=== PATIENT | female | born 1970 | race Caucasian/White ===

== ENCOUNTER 2017-09-21 07:27 | Outpatient (RCR) | payer OTHER, SELFPAY ==
--- NOTE | 2017-09-21 08:45 | HP.PTEVAL_ITS ---
Patient's Visit Information JACKY CATES is a 47 year old F referred to Physical Therapy by Kendell ROSSI with a diagnosis of LUMBAR RADICULOPATHY. Date of Evaluation: 09/21/17 Physical Therapist: Lewis Hammer, PT, - Visit Plan Frequency: 3x /Week Duration: 4 Weeks Plan: modalities, DLS,postural ex's - Subjective Subjective: This 47 y/o female presents to physical therapy with lumbar radiculopathy left leg. Patient has had pain since OCT injuried by helping mom out of car bent over position. Patient has had 2 prior lumbar fusion with plates /screws then 2nd cage 2003 from [facility]. Location of left greater to right with parathesia -tingling to great toe left,intially lateral thigh. Symptoms worse with sitting.standing,lifting,bending,walking. Symptoms better with MEDS, Coughing/sneezing positive. Bowel/bladder -.Pain affects sleeping.Pain affects job demnads and housework tasks.Had PT in past ,epidural injection. VOCATION: [employer]. SOCIAL: - Pain Left Back Pain Intensity (Out of 10): 9 Pain Intensity Range: 10 Left Lower Extremity Pain Intensity (Out of 10): 9 Pain Intensity Range: 10 - Objective POSTURE: mild foward posture ,reduce lordosis. GAIT: mild foward posture anatalgic gait left side with decrease stance time. NUERO: c/o parathesia/ tingling left leg light touch inact,reflexes 2/3 L3-4,L4-5,L5-S1. SYMMRITIES : align. MMT: quads/hams 4-/5 L,R 4/5,Hip flexion 4-/5,ankle 4/5,great toe extensors 4-/5. LUMBAR ROM: flexion mod loss pain,extension mod loss pain, side glides mod limited. FLEXABILITY: mod tight - Special Tests L/S Slump test left side: Positive L/S Slump test right side: Negative L/S Left Straight Leg Raise: Positive L/S Right Straight Leg Raise: Negative Lumbar Standing: Flexion - Mechanical Response: No effect Lumbar Standing: Flexion - Symptoms During Testing: Increases Lumbar Standing: Flexion - Symptoms After Testing: Worse Lumbar Standing: Extension - Mechanical Response: No effect Lumbar Standing: Extension - Symptoms During Testing: Increases Lumbar Standing: Extension - Symptoms After Testing: Worse - Goals Goal 1:: Independant with HEP Goal Time Frame: 4-6 Weeks Goal 2:: Independant with posture/body mechanics for ADL'S Goal Time Frame: 4-6 Weeks Goal 3:: Patient decrease lumbar pain by 40 % or greater to improve function with walking standing Goal Time Frame: 4-6 Weeks Goal 4:: Patient improve lumbar ROM min/mod loss to improve function Goal Time Frame: 4-6 Weeks Goal 5:: Patient improve ADL'S and housework with min limitations with less pain Goal Time Frame: 4-6 Weeks - Rehabilitation Potential Physical Therapy Diagnosis: This 47 y/o female presents to physical therapy with lumbar radiculopathy with leg pain. with h/o lumbar fusion with cage 2004 with pain weakness,loss ROM causes deficits with walking and standing Rehabilitation Potential: Good - Anticipated Interventions Patient/Client Instruction: Educate patient on: Condition, Plan of Care For the Purpose of:: To decrease pain, To increase ROM, To improve muscle performance and motor function, To improve ability to perform ADL's, To increase tolerance to activity/condition/position, To improve performance and independence with ADL's, To improve ability of physical actions for home/ community/work/leisure, To improve health of tissue, To decrease soft tissue restriction, To increase flexibility/ROM, To improve ability to perform tasks related to life management Therapeutic Exercise to Include: Strength training, Body mechanics, Postural training, Flexibilty training, Dynamic Lumbar Stabilization For the Purpose of:: To decrease pain, To increase ROM, To improve muscle performance and motor function, To improve ability to perform ADL's, To increase tolerance to activity/condition/position, To improve ability of physical actions for home/community/work/leisure, To improve health of tissue, To decrease soft tissue restriction, To increase flexibility/ROM, To improve ability to perform tasks related to life management IF ES: Yes Cryotherapy (ice pack, ice massage): Yes Thermo therapy (hot pack): Yes Ultrasound (thermal/non thermal): Yes For the Purpose of:: To decrease pain, To increase ROM, To improve nutrient delivery to tissue, To increase oxygenation perfusion, To improve health of tissue, To decrease soft tissue restriction Thank you for the opportunity to evaluate your patient. For Medicare and Medicare HMO plans, please review the plan of care and approve it. It will need to be FAXED BACK to us at [phone] for Medicare purposes. Please let me know if there are questions or concerns regarding this plan of care. Physician Signature: Date:
--- NOTE | 2017-11-17 11:42 | HP.PTDCNRP_ITS ---
HP - Discharge Summary (1) - Patient Information JACKY CATES was seen in my office for initial evaluation on 09/21/17. The following Plan of Care was established for this patient: Initial Frequency: 3x /Week Initial Duration: 4 Weeks - Anticipated Interventions Patient/Client Instruction: Educate patient on: Condition, Plan of Care For the Purpose of:: To decrease pain, To increase ROM, To improve muscle performance and motor function, To improve ability to perform ADL's, To increase tolerance to activity/condition/position, To improve performance and independence with ADL's, To improve ability of physical actions for home/ community/work/leisure, To improve health of tissue, To decrease soft tissue restriction, To increase flexibility/ROM, To improve ability to perform tasks related to life management Therapeutic Exercise to Include: Strength training, Body mechanics, Postural training, Flexibilty training, Dynamic Lumbar Stabilization For the Purpose of:: To decrease pain, To increase ROM, To improve muscle performance and motor function, To improve ability to perform ADL's, To increase tolerance to activity/condition/position, To improve ability of physical actions for home/community/work/leisure, To improve health of tissue, To decrease soft tissue restriction, To increase flexibility/ROM, To improve ability to perform tasks related to life management IF ES: Yes Cryotherapy (ice pack, ice massage): Yes Thermo therapy (hot pack): Yes Ultrasound (thermal/non thermal): Yes For the Purpose of:: To decrease pain, To increase ROM, To improve nutrient delivery to tissue, To increase oxygenation perfusion, To improve health of tissue, To decrease soft tissue restriction This patient was last seen in our office 09/21/17. Pertinent comments regarding their Physical therapy will appear below: Patient seen for PT for lumbar radiculopathy for Intial PT eval. At this point I will be discontinuing this patient from physical therapy. I would be happy to see this patient again in the future if found appropriate by the physician. Thank you! Lewis Hammer, PT,
== END 2017-09-21 19:00 | disposition home or self-care (01) ==
LOC: PT 07:27
PROVIDERS: Family Provider Family Medicine; PCP Family Medicine; Visit Provider Family Medicine
DX: M54.16 Radiculopathy, lumbar region (principal)
CPT/HCPCS: 97014; 97162; G0283

== ENCOUNTER → 2018-05-09 09:50 | Outpatient (CLI) | payer OTHER, SELFPAY ==
--- NOTE | 2018-05-09 10:19 | RAD_ITS ---
STUDY: X-RAY - RIGHT SHOULDER REASON FOR EXAM: Female, 48 years old. Pain TECHNIQUE: 3 view(s) of the shoulder. COMPARISON: None. FINDINGS: The humeral head appears to be low-lying within the joint space.. Normal acromioclavicular joint. Normal acromion. Normal humeral head and visualized proximal humerus. The soft tissue structures are unremarkable. Normal visualized pulmonary apex. RAD/Shoulder min 2 Views IMPRESSION: Mildly inferiorly subluxed humeral head without evidence for associated fracture. MRI would be helpful to assess the shoulder capsule, tendons and ligaments if clinically indicated Electronically Signed: Orville Zapata MD at 21:26 EDT , Service support ,
[2018-05-09 12:44] LABS: Absolute Lymphocyte Count 2.03 X10^3/ul (0.83-4.51); Absolute Neutrophil Count 4.5 X10^3/uL (2.0-7.7); Basophil# 0.02 X10^3/uL; Basophil% 0.3 % (0-1); Eosinophil# 0.16 X10^3/uL; Eosinophils% 2.2 % (0-5); Hematocrit 39.4 % (37-47); Hemoglobin 13.4 g/dl (12.0-15.0); Lymphocyte # 2.03 X10^3/ul (4.0); Lymphocyte % 28.3 % (19-41); Mean Corpuscular Hgb 30.9 pg (27.0-32.0); Mean Platelet Vol. 10.5 fl (6.2-12.0); Monocyte# 0.47 X10^3/uL; Monocyte% 6.6 % (0-10); Neutrophil # 4.48 X10^3/uL (2.7-7.7); Neutrophil % 62.5 % (47-70); Platelet Count 239 K/mm3 (150-450); RBC Distribution Width CV 13.6 % (11.6-14.6); RBC Distribution Width SD 44.6 fl (35.1-43.9); Red Blood Count 4.33 M/mm3 (4.2-5.4); White Blood Count 7.2 K/mm3 (4.4-11.0)
[2018-05-09 12:58] LABS: POSITIVE COUNT NO; POSITIVE DIFFERENTIAL NO; POSITIVE MORPHOLOGY NO
[2018-05-09 13:22] LABS: ALB/GLOB Ratio 0.9 RATIO (0.9-2.4); AST(SGOT) 26 U/L (15-37); Alanine Aminotransfer ALT/SGPT 48 U/L (13-56); Albumin, Serum 3.5 g/dL (3.2-5.0); Alkaline Phosphatase 87 U/L (45-117); Anion Gap 9 (5-15); BUN 13 mg/dL (7-18); BUN/Creat Ratio 15.4 RATIO (10-20); Calcium,Total 8.9 mg/dL (8.5-10.1); Chloride 104 mmol/L (98-107); Cholesterol 322 mg/dL (200); Creatinine, Serum 0.84 mg/dL (0.55-1.02); EST Glomerular Filtration Rate 76 mL/min (>60); Est Glom Filt Rate - Afr Amer 92 mL/min (>60); Globulin 3.9 g/dL (2.2-4.2); Glucose 109 mg/dL (74-106); High Density Lipoprotein 45 mg/dL; Protein, Total 7.4 g/dL (6.4-8.2); Sodium Level 138 mmol/L (136-145); Triglycerides 790 mg/dL
[2018-05-12 08:23] LABS: Vitamin D 1,25-Dihydroxy 67.5 pg/mL (19.9-79.3)
== END ==
PROVIDERS: Family Provider Family Medicine; PCP Family Medicine; Visit Provider Nurse Practitioner Family
DX: Z00.00 Encounter for general adult medical examination without abnormal findings (principal); E03.9 Hypothyroidism, unspecified; E55.9 Vitamin D deficiency, unspecified; S49.91XA Unspecified injury of right shoulder and upper arm, initial encounter
CPT/HCPCS: 36415; 73030; 80053; 80061; 82652; 84443; 85025

== ENCOUNTER → 2018-05-21 08:36 | Outpatient (CLI) | payer OTHER, SELFPAY ==
--- NOTE | 2018-05-21 08:45 | MRI_ITS ---
STUDY: MRI RIGHT SHOULDER REASON FOR EXAM: Right shoulder pain with limited range of motion, fall 7 months ago. TECHNIQUE: Standardized fat and water weighted pulse sequences were obtained in all 3 orthogonal planes. COMPARISON: Radiographs 05/09/2018. FINDINGS: There is mild supraspinatus tendinosis (T2 coronal images 10-13) without discrete tendon tear. Normal infraspinatus tendon. There is mild subscapularis tendinosis (proton density axial image 13) without discrete tendon tear. Normal teres minor tendon. Normal supraspinatus muscle. Normal infraspinatus muscle. Normal subscapularis muscle. Normal teres minor muscle. Normal glenohumeral articulation. There is a well-defined chondroid series tumor in the proximal humeral diaphysis (T2 coronal images 6, 7) measuring 1.8 cm in length without endosteal scalloping or bone edema and therefore most suggestive of an enchondroma. Normal biceps labral complex. There is mild tendinosis of the intracapsular long biceps tendon (T2 sagittal images 8, 9). Normal labrum. Normal capsulo- ligamentous complex. There is mild acromioclavicular arthrosis (T2 sagittal image 9) without undersurface osteophytes. There is a Type II morphology (curved), with a neutral orientation. There is no subacromial-subdeltoid bursal fluid. Normal visualized coracohumeral and coracoacromial ligaments. Normal deltoid muscle. Normal trapezius muscle. MRI/Upper Ext Joint Only(Routine) IMPRESSION: Mild supraspinatus and subscapularis tendinosis without demonstrated rotator cuff tear. Mild tendinosis of the long biceps tendon. Mild acromioclavicular arthrosis. 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 Electronically Signed: Jerome Tidwell MD at 9:26 EDT Tel , Service support ,
== END ==
PROVIDERS: Family Provider Family Medicine; PCP Family Medicine; Visit Provider Nurse Practitioner Family
DX: S49.91XA Unspecified injury of right shoulder and upper arm, initial encounter (principal)
CPT/HCPCS: 73221

== ENCOUNTER → 2018-06-14 08:18 | Outpatient (CLI) | payer OTHER, SELFPAY ==
--- NOTE | 2018-06-14 08:20 | BI_ITS ---
MAMMOGRAPHY - BILATERAL SCREENING REASON FOR EXAM: Female, 48 years old. Routine annual screening examination. PERTINENT HISTORY: Non-contributory. TECHNIQUE: Digital bilateral breast gracie (3D mammographic acquisition) in the CC and MLO projections. 2-D mediolateral oblique (MLO) and craniocaudad (CC) views of both breasts were obtained. CAD: Full Field Digital Mammography with Computer Added Detection was performed. COMPARISON: Comparison is made with prior examination dated January 14, 2012. FINDINGS: Breast Composition: There are scattered areas of fibroglandular density. There are no dominant masses or suspicious calcifications. No other significant abnormalities are identified. There has been no significant change since the prior study. BI/SCREENING MAMM (CAD), BILAT IMPRESSION: Stable bilateral screening mammogram. Yearly follow-up mammogram recommended. (A) ASSESSMENT CATEGORY: BIRADS Category 1: Negative. A letter regarding these results will be sent to the patient by the facility within 30 days. Approximately 10% of breast cancers are not detected by mammography. A normal mammogram should not delay biopsy of a clinically suspicious abnormality. [id number] Electronically Signed: Chet Franklin MD at 11:21 EDT Tel [phone], Service support ,
== END ==
PROVIDERS: Family Provider Family Medicine; PCP Family Medicine; Visit Provider Nurse Practitioner Family
DX: Z12.31 Encounter for screening mammogram for malignant neoplasm of breast (principal)
CPT/HCPCS: 77063; 77067

== ENCOUNTER → 2019-07-08 | Outpatient (CLI) | payer OTHER, SELFPAY ==
[2016-06-29 11:10] VITALS: BMI 37.1
[2019-07-08 09:07] LABS: Absolute Lymphocyte Count 2.34 X10^3/uL (0.83-4.51); Absolute Neutrophil Count 3.1 X10^3/uL (2.0-7.7); Basophil# 0.03 X10^3/uL; Basophil% 0.5 % (0-1); Eosinophil# 0.12 X10^3/uL; Hematocrit 39.5 % (37-47); Hemoglobin 13.3 g/dL (12.0-15.0); Lymphocyte # 2.34 X10^3/ul (4.0); Lymphocyte % 38.5 % (19-41); Mean Corp Hgb Conc 33.7 g/dL (32-36); Mean Corpuscular Hgb 30.9 pg (27.0-32.0); Mean Corpuscular Volume 91.6 fL (81-99); Mean Platelet Vol. 10.2 fl (6.2-12.0); Monocyte# 0.45 X10^3/uL; Monocyte% 7.4 % (0-10); NRBC Flagged by Analyzer 0 % (0-5); Neutrophil # 3.12 X10^3/uL (2.7-7.7); Neutrophil % 51.3 % (47-70); Platelet Count 210 K/mm3 (150-450); RBC Distribution Width CV 13.1 % (11.6-14.6); RBC Distribution Width SD 42.9 fl (35.1-43.9); Red Blood Count 4.31 M/mm3 (4.2-5.4); White Blood Count 6.1 K/mm3 (4.4-11.0)
[2019-07-08 09:32] LABS: ALB/GLOB Ratio 0.9 RATIO (0.9-2.4); AST(SGOT) 19 U/L (15-37); Alanine Aminotransfer ALT/SGPT 30 U/L (13-56); Albumin, Serum 3.2 g/dL (3.2-5.0); Alkaline Phosphatase 66 U/L (45-117); Anion Gap 7 (5-15); BUN 13 mg/dL (7-18); BUN/Creat Ratio 17.8 RATIO (10-20); Calcium,Total 8.3 mg/dL (8.5-10.1); Chloride 108 mmol/L (98-107); Cholesterol 251 mg/dL (200); Creatinine, Serum 0.73 mg/dL (0.55-1.02); EST Glomerular Filtration Rate 90 mL/min (>60); Est Glom Filt Rate - Afr Amer 109 mL/min (>60); Globulin 3.5 g/dL (2.2-4.2); Glucose 108 mg/dL (74-106); High Density Lipoprotein 44 mg/dL; Potassium 4.3 mmol/L (3.5-5.1); Protein, Total 6.7 g/dL (6.4-8.2); Sodium Level 143 mmol/L (136-145); Thyroid Stim Hormone (TSH) 1.02 uIU/mL (0.358-3.74); Triglycerides 442 mg/dL
[2019-07-10 09:52] LABS: Vitamin B12 352 pg/mL (211-911); Vitamin D,25 Hydroxy 22.7 ng/mL (29.95-100.01)
== END | disposition home or self-care (01) ==
LOC: LAB 08:10
PROVIDERS: Family Provider Family Medicine; PCP Family Medicine; Referring Provider Family Medicine; Visit Provider Family Medicine
DX: E78.5 Hyperlipidemia, unspecified (principal); R53.83 Other fatigue
CPT/HCPCS: 36415; 80053; 80061; 82306; 82607; 84443; 85025

== ENCOUNTER → 2019-09-07 16:40 | Outpatient (CLI) | payer OTHER, SELFPAY ==
[2016-06-29 11:10] VITALS: BMI 37.1
[2019-09-07 17:41] LABS: Erythrocyte Sedimentation Rate 28 mm/hr (0-30)
[2019-09-07 17:59] LABS: Vitamin B12 760 pg/mL (211-911); Vitamin D,25 Hydroxy 20.4 ng/mL (29.95-100.01)
[2019-09-07 18:00] LABS: T4 Free Direct 1.19 ng/dL (0.76-1.46); Thyroid Stim Hormone (TSH) 1.06 uIU/mL (0.358-3.74)
[2019-09-07 18:14] LABS: Hemoglobin A1c 5.6 % (4.2-6.3)
[2019-09-11 14:08] LABS: Vitamin B1, Thiamine 172.5 nmol/L (66.5-200.0)
[2019-09-12 10:33] LABS: Thyroid Peroxidase AB 9 IU/mL (0-34)
== END ==
PROVIDERS: Family Provider Family Medicine; PCP Family Medicine; Referring Provider Family Medicine; Visit Provider Family Medicine
DX: E03.9 Hypothyroidism, unspecified (principal); E55.9 Vitamin D deficiency, unspecified; M79.7 Fibromyalgia; R73.09 Other abnormal glucose
CPT/HCPCS: 36415; 82306; 82607; 83036; 84425; 84439; 84443; 85652; 86376

== ENCOUNTER 2019-10-31 07:48 | Day surgery (SDC) | payer OTHER, SELFPAY ==
[2019-10-19 08:11] VITALS: BMI 37.4
--- NOTE | 2019-10-19 08:24 | HP_ITS ---
Intake Vital Signs 10/19/19 Height 5 ft 5 in 10/19/19 Weight: 225 lb 10/19/19 BMI 37.4 10/19/19 BP 129/81 H 10/19/19 Blood Pressure Location Rt brachial 10/19/19 Position Sitting 10/19/19 Respiration 14 10/19/19 Pulse 51 L 10/19/19 Pulse Source Monitor 10/19/19 Temp 98.5 F 10/19/19 Temp Source Oral 10/19/19 Pulse Oximetry (%) 99 10/19/19 Oxygen Delivery Method room air 10/19/19 BMI 37.1 Intake Visit Reasons: Gastroesophageal reflux disease (GERD) Cocoa Room Operator Required: No Is patient in pain?: No Allergies atorvastatin Allergy (Unknown, Verified 10/19/19 08:13) Unknown Penicillins Allergy (Verified 10/19/19 08:13) Rash morphine Adverse Reaction (Verified 10/19/19 08:13) Vomiting sumatriptan [From Imitrex] Adverse Reaction (Verified 10/19/19 08:13) Other sumatriptan succinate [From Imitrex] Adverse Reaction (Verified 10/19/19 08:13) Other Medications Cholecalciferol (Vitamin D3) [Vitamin D3] 500,000 unit PO DAILY 06/05/15 [History Confirmed 10/19/19] Nitroglycerin (INPATIENT USE) [Nitrostat] 0.4 mg SUBLINGUAL Q5M PRN #10 tab 06/05/15 [Rx Confirmed 10/19/19] duloxetine 30 mg capsule,delayed release 30 mg PO DAILY cap 10/19/19 [History Confirmed 10/19/19] duloxetine 60 mg capsule,delayed release 60 mg PO DAILY cap 10/19/19 [History Confirmed 10/19/19] esomeprazole magnesium 40 mg capsule,delayed release 40 mg PO DAILY cap 10/19/19 [History Confirmed 10/19/19] estradiol 0.5 mg tablet 0.5 mg PO DAILY tab 10/19/19 [History Confirmed 10/19/19] fluticasone propionate 50 mcg/actuation nasal spray,suspension INTRANASAL 10/19/19 [History Confirmed 10/19/19] levothyroxine 112 mcg tablet 112 mcg PO DAILY tab 10/19/19 [History Confirmed 10/19/19] meloxicam 7.5 mg tablet 7.5 mg PO DAILY PRN tab 10/19/19 [History Confirmed 10/19/19] propranolol 60 mg capsule,24 hr,extended release 60 mg PO QHS cap 10/19/19 [History Confirmed 10/19/19] PFSH Medical History (Updated 10/19/19 @ 08:22 by Matthew Jones MD) Screening for intestinal cancer (Acute) Hemorrhoids (Acute) Acid reflux (Acute) Constipation (Acute) Anxiety (Acute) Depression (Acute) Numbness and tingling (Acute) Arthritis (Acute) Back problem (Acute) Thyroid disease (Acute) Difficulty swallowing (Acute) Fatigue (Acute) Surgical History (Updated 10/19/19 @ 08:09 by Maribel Diane) Hx of foot surgery (Acute) Hx of tubal ligation (Acute) Hx of hysterectomy (Acute) History of back surgery (Acute) Family History Mother Arthritis Heart disease Hypertension Thyroid disorder Osteoporosis Father Arthritis Diabetes Heart disease Social History (Updated 10/19/19 @ 08:24 by Matthew Jones MD) Smoking Status: Former smoker second hand exposure: No alcohol intake: current alcohol intake frequency: holidays/special occasions only substance use type: does not use caffeine: Yes what type of physical activity do you participate in: none frequency: does not exercise HPI HPI HPI: JACKY MATTHEWS, is a 49 F who presents to the office today for HPI HPI Surgical H&P: Yes HPI: JACKY MATTHEWS, is a 49 F who presents to the office today for surgical consultation regarding 2 separate issues. She is referred by Dr Kendell Herrmann and a written compromise surgical consult recommendations will return to him. The patient has had intractable gastroesophageal reflux disease for 10 years requiring Nexium therapy. If she is off that medication for a couple days she has severe recurrence of her reflux symptoms. Even while she is on the medication she is occasionally will take an acids because of breakthrough discomfort. She states that over the past 10 years her weight has been relatively stable however over the past 2 years she has had approximately a 20 pound weight gain. She was a previous cigarette smoker. She states that she quit 5 years ago. Over the past couple years she has had increased stress due to the loss of her mother. She denies any previous abdominal surgery. She will also be seeing ear nose and throat. She states that whereas large pills will go down small spelt pills tend to get stuck right in the back of her throat. The patient denies family history of colon polyps or colon cancer. She has never previously had a screening colonoscopy. She denies bright red blood per rectum or melena. No abdominal pain. No previous abdominal operations. Exam Const General: cooperative, comfortable, no acute distress Nutritional Appearance: obese Orientation: alert, awake HENMT Head: normal to inspection Resp Effort & Inspection: normal respiratory effort Auscultation: clear to auscultation bilaterally Cardio Rate: regular rate Rhythm: regular rhythm GI Palpation: soft Auscultation: normal bowel sounds Neuro Cognition: normal cognition Extrem General: no calf tenderness bilaterally Psych Affect: normal affect Assessment & Plan 1. Gastroesophageal reflux disease, esophagitis presence not specified K21.9 2. Screening for intestinal cancer Z12.10 Plan I have recommended to the patient a esophagogastroduodenoscopy with possible biopsy or polypectomy as well as pH Anderson probe placement. I have discussed the technique, benefit, risk, alternatives. We briefly discussed her BMI of 37. It would be ideal if she could lose a degree of weight. The patient has never had a screening colonoscopy. While she is sedated I have offered and recommended a screening colonoscopy with possible biopsy or polypectomy as indicated. She has had an opportunity to ask and have questions answered. She is agreeable to scheduling proceeding as noted. Pending the results of the upper endoscopy and pH probe the patient will then return to the office and we can then discuss further treatment options. Treatment option might include a surgical reflux procedure. In order to pursue that the patient is aware that esophageal manometry would be indicated. I very much appreciate the kind opportunity of assisting with her surgical care Cc: Dr Kendell Jones M.D., F.A.C.S. Plan Detail Other Medications New: duloxetine 30 mg PO DAILY duloxetine 60 mg PO DAILY esomeprazole magnesium 40 mg PO DAILY estradiol 0.5 mg PO DAILY propranolol ER 60 mg PO QHS Matthew Jones MD meloxicam 7.5 mg PO DAILY PRN Matthew Jones MD levothyroxine 112 mcg PO DAILY Matthew Jones MD Discontinued: levothyroxine Discontinued Reason: Pt no longer taking 100 mcg PO DAILY Maribel Diane esomeprazole magnesium Discontinued Reason: Pt no longer taking 20 mg PO DAILY Maribel Diane tramadol Discontinued Reason: Pt no longer taking 50 mg PO Q12H PRN PRN Maribel Diane naproxen Discontinued Reason: Pt no longer taking 500 mg PO BID PRN 20 tabs 0RF Maribel Diane Coding Level of Care Code 64351 Diagnoses Gastroesophageal reflux disease, esophagitis presence not specified K21.9 ??Esophagitis presence: esophagitis presence not specified Screening for intestinal cancer Z12.10 10/19/19 0824 <Electronically signed by Matthew joyner MD> Date _ Matthew Jones MD I have re-examined the patient. There are no clinical changes since date of exam.
[2019-10-31] VITALS (8 sets, daily range): BP systolic 102–111; BP diastolic 46–72; PULSE 53–62; RESP 15–16; TEMP 36.6–37.3; O2SAT 96–100; BMI 36.7
[2019-10-31] MEDS: Lactated Ringers 1,000 ML 100 ML IV (08:30)
--- NOTE | 2019-10-31 09:15 | IMM_PTH ---
PATIENT: JACKY MATTHEWS LOC: EN U#:[id number] AGE/SX: 49/F ROOM: RE10/31/[address]: Dr. Matthew Jones MD : 1970 BED: DIS: 10/31/2019 SPEC #: [id number] RECD: 10/31/19 13:53 STATUS: RICHELLE REQ #: [id number] ALIA: 10/31/19 09:[address]: Matthew Jones DEPT: IMMUNOHISTOCHEMISTRY RECD BY: Billie Carroll ENTERED: 10/31/19 13:53 SP TYPE: IMMUNO OTHR DR: Dr. Kendell Herrmann MD Tissues: A - Stomach, NOS Procedures: H Pylori (initial) PHYSICIAN & INSTITUTION [place] [id number] SPECIMEN INFORMATION: Tissue Source: A - Antral biopsy Clinical Info: GERD, screening Specimen Number: [id number] CPT code: 98412 METHODOLOGY: Deparaffinized sections of prefer/formalin-fixed tissue or PAP/DQ stained slides are incubated with monoclonal/polyclonal antibodies/oligonucleotide probes. Localization is made via biotin free immunoperoxidase method. Appropriate controls are performed and reacted as expected. Results on target cell population are indicated in the following table: RESULTS: ANTIBODY / CLONE RESULT Block A H Pylori (polyclonal) negative These tests were developed and their performance characteristics determined by [facility]. They may not have been cleared or approved by the U.S. Food and Drug Administration. The FDA has determined that such clearance or approval is not necessary. INTERPRETATION: A. Antral biopsy: Negative for Helicobacter pylori organisms. SJ:corry 11/01/19
--- NOTE | 2019-10-31 09:15 | EGD_PTH ---
PATIENT: JACKY MATTHEWS LOC: EN U#:[id number] AGE/SX: 49/F ROOM: RE10/31/[address]: Dr. Matthew Jones MD : 1970 BED: DIS: 10/31/2019 SPEC #: [id number] RECD: 10/31/19 10:46 STATUS: RICHELLE ROJAS #: [id number] ALIA: 10/31/19 09:[address]: Matthew Jones DEPT: SURGICAL PATHOLOGY RECD BY: Juvenal Jerome ENTERED: 10/31/19 13:37 SP TYPE: EGD BIOPSY OT DR: Dr. Kendell Herrmann MD Tissues: A - Gastric mucous membrane B - Esophageal mucous membrane Procedures: Special Stain Group II Surgery Specimen Level IV Alcian Blue/PAS (control) HEADER OPERATION: Colonoscopy, EGD PH probe (MAC) PRE-OP DIAGNOSIS: GERD, screening TISSUE SUBMITTED: A - Antral biopsy for H. pylori and pathology, B - Distal esophageal biopsies MICROSCOPIC DIAGNOSIS A. Antral biopsy: Mild gastritis. See microscopic description and comment. B. Distal esophageal biopsy: Fragments of gastroesophageal mucosa with mild chronic inflammation.. Intestinal metaplasia (goblet cell metaplasia) is not identified. See comment. SJ:rg 11/01/19 COMMENT A. The results of immunohistochemistry for Helicobacter pylori will be reported separately ([id number]). B. Alcian blue/PAS stain with matched control is used in the evaluation of the specimen. MICROSCOPIC DESCRIPTION Slides are reviewed. A. The specimen shows fragments of gastric mucosa with chronic inflammatory cell infiltrates in the lamina propria consisting of lymphocytes and plasma cells, consistent with mild chronic gastritis. GROSS DESCRIPTION A - Received in fixative is one container labeled with the patient's name and designated antrum biopsy. The specimen consists of one irregular fragment of light stovall soft tissue that measures 0.3 x 0.3 x 0.1 cm. The specimen is totally submitted in one cassette. B - Received in fixative is one container labeled with the patient's name and designated distal esophageal biopsy. The specimen consists of two irregular fragments of light stovall soft tissue that in aggregate measure 0.6 x 0.3 x 0.1 cm. The specimen is totally submitted in one cassette. / CHRISTINA:corry 10/31/19 TC:3 CPT: 79739 x2, 98397
--- NOTE | 2019-10-31 09:56 | OP.EGD_ITS ---
Patient Name: Sindy Wolfe Procedure Date: 10/31/2019 9:10 AM Date of : 1970 Age: 49 Procedure: Upper GI endoscopy Indications: Suspected gastro-esophageal reflux disease Providers: Matthew Jones MD Referring MD: Kendell Herrmann Medicines: See the Anesthesia note for documentation of the administered medications Complications: No immediate complications. Procedure: Pre-Anesthesia Assessment: - Prior to the procedure, a History and Physical was performed, and patient medications and allergies were reviewed. The patient's tolerance of previous anesthesia was also reviewed. The risks and benefits of the procedure and the sedation options and risks were discussed with the patient. All questions were answered, and informed consent was obtained. Prior Anticoagulants: The patient has taken no previous anticoagulant or antiplatelet agents. ASA Grade Assessment: II - A patient with mild systemic disease. After reviewing the risks and benefits, the patient was deemed in satisfactory condition to undergo the procedure. After obtaining informed consent, the endoscope was passed under direct vision. Throughout the procedure, the patient's blood pressure, pulse, and oxygen saturations were monitored continuously. The gastroscope was introduced through the mouth, and advanced to the second part of duodenum. The upper GI endoscopy was accomplished without difficulty. The patient tolerated the procedure well. Scope In: 9:19:49 AM Scope Out: 9:27:44 AM Total Procedure Duration Time 0 hours 7 minutes 55 seconds Findings: LA Grade A (one or more mucosal breaks less than 5 mm, not extending between tops of 2 mucosal folds) esophagitis with no bleeding was found 39 cm from the incisors. Biopsies were taken with a cold forceps for histology. A medium-sized hiatal hernia was present. Diffuse mildly erythematous mucosa without bleeding was found in the gastric antrum. Biopsies were taken with a cold forceps for histology. The examined duodenum was normal. The MATHIAS capsule with delivery system was introduced through the mouth and advanced into the esophagus, such that the MATHIAS pH capsule was positioned 34 cm from the incisors, which was 6 cm proximal to the GE junction. The MATHIAS pH capsule was then deployed and attached to the esophageal mucosa. The delivery system was then withdrawn. Endoscopy was utilized for probe placement and diagnostic evaluation. Impression: - LA Grade A reflux esophagitis. Biopsied. - Medium-sized hiatal hernia. - Erythematous mucosa in the antrum. Biopsied. - Normal examined duodenum. - The MATHIAS pH capsule was deployed. Recommendation: - Discharge patient to home. - Resume previous diet. - Continue present medications. - Return to my office in 3 weeks. Procedure Code(s): --- Professional --- 30924, Esophagogastroduodenoscopy, flexible, transoral; with biopsy, single or multiple Diagnosis Code(s): --- Professional --- K21.0, Gastro-esophageal reflux disease with esophagitis K44.9, Diaphragmatic hernia without obstruction or gangrene K31.89, Other diseases of stomach and duodenum CPT copyright 2017 [employer]. All rights reserved. The codes documented in this report are preliminary and upon shoveler review may be revised to meet current compliance requirements. Matthew Jones MD 10/31/2019 9:56:38 AM This report has been signed electronically. Number of Addenda: 0 Note Initiated On: 10/31/2019 9:10 AM
--- NOTE | 2019-10-31 09:56 | OP.CCLET_ITS ---
10/31/2019 Kendell Herrmann [address] [place] [address] Re : Upper GI endoscopy procedure for Sindy Wolfe Dear Dr. Herrmann This procedure was performed on Thursday, October 31, 2019. My impressions and recommendations are as follows: Impressions : - LA Grade A reflux esophagitis. Biopsied. - Medium-sized hiatal hernia. - Erythematous mucosa in the antrum. Biopsied. - Normal examined duodenum. - The MATHIAS pH capsule was deployed. Recommendations : - Discharge patient to home. - Resume previous diet. - Continue present medications. - Return to my office in 3 weeks. My findings are described in the full procedure note, which is enclosed. If I can be of further assistance, please feel free to contact me at Doctor phone number(s): Work: . Sincerely, Matthew Jones MD 10/31/2019 9:56:38 AM This report has been signed electronically.
--- NOTE | 2019-10-31 09:59 | OP.CCLET_ITS ---
10/31/2019 Kendell Herrmann [address] [place] [address] Re : Colonoscopy procedure for Sindy Wolfe Dear Dr. Herrmann This procedure was performed on Thursday, October 31, 2019. My impressions and recommendations are as follows: Impressions : - Hemorrhoids found on perianal exam. - Diverticulosis in the sigmoid colon and in the descending colon. - Tortuous colon. - No specimens collected. Recommendations : - Discharge patient to home. - Resume previous diet. - Continue present medications. - Repeat colonoscopy in 10 years for screening purposes. My findings are described in the full procedure note, which is enclosed. If I can be of further assistance, please feel free to contact me at Doctor phone number(s): Work: . Sincerely, Matthew Jones MD 10/31/2019 9:58:55 AM This report has been signed electronically.
--- NOTE | 2019-10-31 09:59 | OP.COLON_ITS ---
Patient Name: Sindy Wolfe Procedure Date: 10/31/2019 9:29 AM Date of : 1970 Age: 49 Procedure: Colonoscopy Indications: Screening for colorectal malignant neoplasm Providers: Matthew Jones MD Referring MD: Kendell Herrmann Medicines: See the Anesthesia note for documentation of the administered medications Patient Profile: Last Colonoscopy: none. The patient's first colonoscopy is today. Complications: No immediate complications. Procedure: Pre-Anesthesia Assessment: - Prior to the procedure, a History and Physical was performed, and patient medications and allergies were reviewed. The patient's tolerance of previous anesthesia was also reviewed. The risks and benefits of the procedure and the sedation options and risks were discussed with the patient. All questions were answered, and informed consent was obtained. Prior Anticoagulants: The patient has taken no previous anticoagulant or antiplatelet agents. ASA Grade Assessment: II - A patient with mild systemic disease. After reviewing the risks and benefits, the patient was deemed in satisfactory condition to undergo the procedure. After I obtained informed consent, the scope was passed under direct vision. Throughout the procedure, the patient's blood pressure, pulse, and oxygen saturations were monitored continuously. The adult colonoscope was introduced through the anus and advanced to the cecum, identified by appendiceal orifice and ileocecal valve. The colonoscopy was performed with moderate difficulty due to a tortuous colon. Successful completion of the procedure was aided by changing the patient to a supine position and using manual pressure. The patient tolerated the procedure well. The quality of the bowel preparation was good. Scope In: 9:30:25 AM Scope Withdrawal Time 0 hours 6 minutes 4 seconds Scope Out: 9:48:20 AM Total Procedure Duration Time 0 hours 17 minutes 55 seconds Findings: Hemorrhoids were found on perianal exam. Multiple diverticula were found in the sigmoid colon and descending colon. The colon (entire examined portion) was moderately tortuous. Impression: - Hemorrhoids found on perianal exam. - Diverticulosis in the sigmoid colon and in the descending colon. - Tortuous colon. - No specimens collected. Recommendation: - Discharge patient to home. - Resume previous diet. - Continue present medications. - Repeat colonoscopy in 10 years for screening purposes. Procedure Code(s): --- Professional --- 91489, Colonoscopy, flexible; diagnostic, including collection of specimen(s) by brushing or washing, when performed (separate procedure) Diagnosis Code(s): --- Professional --- Z12.11, Encounter for screening for malignant neoplasm of colon K64.9, Unspecified hemorrhoids K57.30, Diverticulosis of large intestine without perforation or abscess without bleeding Q43.8, Other specified congenital malformations of intestine CPT copyright 2017 [employer]. All rights reserved. The codes documented in this report are preliminary and upon product marketing specialist review may be revised to meet current compliance requirements. Matthew Jones MD 10/31/2019 9:58:55 AM This report has been signed electronically. Number of Addenda: 0 Note Initiated On: 10/31/2019 9:29 AM
== END 2019-10-31 11:01 | disposition home or self-care (01) ==
LOC: EN 07:49 → AC 07:52
PROVIDERS: PCP Family Medicine; Referring Provider Family Medicine; Visit Provider Surgery
PROC: 0DJD8ZZ Inspection of Lower Intestinal Tract, Via Natural or Artificial Opening Endoscopic (ICD-10-PCS; CPT 45378; principal; 2019-10-31 09:10)
DX: Z12.11 Encounter for screening for malignant neoplasm of colon (principal); K21.0 Gastro-esophageal reflux disease with esophagitis; K44.9 Diaphragmatic hernia without obstruction or gangrene; K31.89 Other diseases of stomach and duodenum; Q43.8 Other specified congenital malformations of intestine; K64.9 Unspecified hemorrhoids; K57.30 Diverticulosis of large intestine without perforation or abscess without bleeding; K29.70 Gastritis, unspecified, without bleeding; M19.90 Unspecified osteoarthritis, unspecified site; K59.00 Constipation, unspecified; E07.9 Disorder of thyroid, unspecified; Z87.891 Personal history of nicotine dependence; Z79.899 Other long term (current) drug therapy; Z79.51 Long term (current) use of inhaled steroids
CPT/HCPCS: 43239; 45378; 88305; 88313; 88342; J7120; J2405

== ENCOUNTER → 2019-12-13 15:24 | Outpatient (CLI) | payer OTHER, SELFPAY ==
[2019-10-31 08:19] VITALS: BMI 36.7
== END ==
PROVIDERS: PCP Family Medicine; Referring Provider Otolaryngology; Visit Provider Otolaryngology
DX: J32.9 Chronic sinusitis, unspecified (principal)
CPT/HCPCS: 87070; 87077; 87205

== ENCOUNTER → 2020-01-24 16:00 | Outpatient (CLI) | payer OTHER, SELFPAY ==
[2019-10-31 08:19] VITALS: BMI 36.7
[2020-01-24 18:27] LABS: Cholesterol 319 mg/dL (200); High Density Lipoprotein 39 mg/dL; T4 Free Direct 0.98 ng/dL (0.76-1.46); Thyroid Stim Hormone (TSH) 2.14 uIU/mL (0.358-3.74); Triglycerides 946 mg/dL
== END ==
PROVIDERS: PCP Family Medicine; Referring Provider Family Medicine; Visit Provider Family Medicine
DX: E78.5 Hyperlipidemia, unspecified (principal); E03.9 Hypothyroidism, unspecified; E55.9 Vitamin D deficiency, unspecified
CPT/HCPCS: 36415; 80061; 82306; 84439; 84443

== ENCOUNTER → 2020-05-28 12:25 | Outpatient (CLI) | payer OTHER, SELFPAY ==
[2019-10-31 08:19] VITALS: BMI 36.7
[2020-05-28 15:39] LABS: Absolute Lymphocyte Count 3.13 X10^3/uL (0.83-4.51); Absolute Neutrophil Count 5.1 X10^3/uL (2.0-7.7); Basophil# 0.05 X10^3/uL; Basophil% 0.6 % (0-1); Eosinophil# 0.13 X10^3/uL; Eosinophils% 1.4 % (0-5); Hematocrit 43.8 % (37-47); Hemoglobin 14.7 g/dL (12.0-15.0); Lymphocyte # 3.13 X10^3/ul (4.0); Lymphocyte % 34.5 % (19-41); Mean Corp Hgb Conc 33.6 g/dL (32-36); Mean Corpuscular Hgb 31.5 pg (27.0-32.0); Mean Platelet Vol. 9.9 fl (6.2-12.0); Monocyte% 6.6 % (0-10); NRBC Flagged by Analyzer 0 % (0-5); Neutrophil # 5.14 X10^3/uL (2.7-7.7); Neutrophil % 56.6 % (47-70); Platelet Count 298 K/mm3 (150-450); RBC Distribution Width CV 13.2 % (11.6-14.6); RBC Distribution Width SD 45.2 fl (35.1-43.9); Red Blood Count 4.66 M/mm3 (4.2-5.4); White Blood Count 9.1 K/mm3 (4.4-11.0)
[2020-05-28 17:14] LABS: Anion Gap 3 (5-15); BUN 19 mg/dL (7-18); BUN/Creat Ratio 19.5 RATIO (10-20); Calcium,Total 9.5 mg/dL (8.5-10.1); Chloride 103 mmol/L (98-107); Cholesterol 277 mg/dL (200); Creatinine, Serum 0.97 mg/dL (0.55-1.02); EST Glomerular Filtration Rate 64 mL/min (>60); Est Glom Filt Rate - Afr Amer 78 mL/min (>60); Glucose 100 mg/dL (74-106); High Density Lipoprotein 38 mg/dL; Potassium 4.3 mmol/L (3.5-5.1); Sodium Level 133 mmol/L (136-145); Thyroid Stim Hormone (TSH) 4.19 uIU/mL (0.358-3.74); Triglycerides 1302 mg/dL
== END ==
PROVIDERS: PCP Family Medicine; Referring Provider Family Medicine; Visit Provider Family Medicine
DX: R07.9 Chest pain, unspecified (principal)
CPT/HCPCS: 36415; 80048; 80061; 84443; 85025

== ENCOUNTER → 2020-06-07 06:30 | Outpatient (CLI) | payer OTHER, SELFPAY ==
[2019-10-31 08:19] VITALS: BMI 36.7
--- NOTE | 2020-06-10 17:47 | STRESSREP ---
Stress Test Report Date: 06/07/2020 Procedure: Pharmacologic stress nuclear imaging study Indications: Chest pain Consent: Per the patient Procedure: Patient initially started as an exercise stress test. He exercised according to the Lele protocol and walked for 5 minutes and 1 second. His heart rate went up to 112 bpm which represents 66% of maximal age-predicted heart rate. His maximum workload was 7 METs. Patient was unable to continue on the treadmill due to leg pain. The test was then switched to Lexiscan stress test. The patient underwent pharmacologic (Regadenoson) evaluation with a peak heart rate of 73 beats per minute (43%predicted maximal heart rate) and a peak blood pressure of 118/60 mmHg. The baseline ECG demonstrated normal sinus rhythm. EKG during lexiscan infusion revealed no significant ST-T changes. EKG post infusion revealed no significant ST-T changes. EKG during peak exercise revealed sinus tachycardia with no significant ST-T changes [There were no cardiac dysrhythmias pretest, during pharmacologic infusion, or recovery]. [There was no complaint of chest discomfort during pharmacologic infusion or recovery]. The examination was discontinued secondary to completion of protocol. Impression: 1. Lexiscan stress test test is negative for Lexiscan infusion induced EKG changes of ischemia. 2. Lexiscan stress test test is negative for Lexiscan infusion induced chest pain. 3. Results of the nuclear portion of the test is as below Myocardial perfusion imaging study: Technique: The patient was injected with 15 millicuries of technetium 99m Cardiolite and subsequently rest SPECT Cardiolite nuclear imaging was obtained in the horizontal long, vertical long, and short axis views. The patient underwent pharmacologic (Regadenoson) evaluation. Please see above for details. The patient was injected with 45 millicuries of technetium 99m Cardiolite and subsequently stress SPECT Cardiolite nuclear imaging was obtained in the horizontal long, vertical long, and short axis views. A gated Cardiolite study at peak stress was obtained. Interpretation: Rest and stress SPECT Cardiolite nuclear imaging status post realignment, normalization, and attenuation correction demonstrate mild decrease in the radioisotope uptake in the anterior wall on both the rest and stress images prior to attenuation correction. After attenuation correction there is normal myocardial radioisotope uptake. This is suggestive of breast attenuation artifact. Gated images reveal no significant regional wall motion abnormalities. The reported LVEF is greater than 70%. Impression: 1. There is no evidence of significant ischemia or infarction. 2. Estimated ejection fraction is greater than 70%. This note was generated with [email or web address] software. It may contain incorrect words, spelling, and punctuation that were not noted in checking the note before signing.
== END ==
LOC: CVS 06:33
PROVIDERS: PCP Family Medicine; Referring Provider Family Medicine; Visit Provider Family Medicine
DX: R07.9 Chest pain, unspecified (principal)
CPT/HCPCS: 78452; 93017; A9500; A4216; J2785

== ENCOUNTER → 2020-07-16 14:20 | Outpatient (CLI) | payer OTHER, SELFPAY ==
[2019-10-31 08:19] VITALS: BMI 36.7
== END ==
PROVIDERS: PCP Family Medicine; Referring Provider Family Medicine; Visit Provider Family Medicine
DX: J06.9 Acute upper respiratory infection, unspecified (principal)
CPT/HCPCS: 87635; U0003

== ENCOUNTER → 2020-08-26 16:17 | Outpatient (CLI) | payer OTHER, SELFPAY ==
[2019-10-31 08:19] VITALS: BMI 36.7
[2020-08-26 17:41] LABS: Absolute Lymphocyte Count 3.59 X10^3/uL (0.83-4.51); Basophil# 0.04 X10^3/uL; Basophil% 0.4 % (0-1); Eosinophil# 0.52 X10^3/uL; Eosinophils% 4.8 % (0-5); Hematocrit 40.6 % (37-47); Hemoglobin 13.5 g/dL (12.0-15.0); Lymphocyte # 3.59 X10^3/ul (4.0); Lymphocyte % 33.2 % (19-41); Mean Corp Hgb Conc 33.3 g/dL (32-36); Mean Corpuscular Hgb 30.5 pg (27.0-32.0); Mean Corpuscular Volume 91.9 fL (81-99); Mean Platelet Vol. 10.1 fl (6.2-12.0); Monocyte# 0.62 X10^3/uL; Monocyte% 5.7 % (0-10); NRBC Flagged by Analyzer 0 % (0-5); Neutrophil # 6.02 X10^3/uL (2.7-7.7); Neutrophil % 55.6 % (47-70); Platelet Count 266 K/mm3 (150-450); RBC Distribution Width SD 42.5 fl (35.1-43.9); Red Blood Count 4.42 M/mm3 (4.2-5.4); White Blood Count 10.8 K/mm3 (4.4-11.0)
[2020-08-26 18:02] LABS: AST(SGOT) 31 U/L (15-37); Alanine Aminotransfer ALT/SGPT 53 U/L (13-56); Albumin, Serum 3.5 g/dL (3.2-5.0); Alkaline Phosphatase 84 U/L (45-117); Amylase 42 U/L (25-115); Anion Gap 7 (5-15); BUN 16 mg/dL (7-18); BUN/Creat Ratio 17.1 RATIO (10-20); Calcium,Total 8.7 mg/dL (8.5-10.1); Chloride 106 mmol/L (98-107); Creatinine, Serum 0.94 mg/dL (0.55-1.02); EST Glomerular Filtration Rate 67 mL/min (>60); Est Glom Filt Rate - Afr Amer 81 mL/min (>60); Globulin 3.5 g/dL (2.2-4.2); Glucose 100 mg/dL (74-106); Lipase 143 U/L (73-393); Potassium 3.7 mmol/L (3.5-5.1); Sodium Level 138 mmol/L (136-145)
== END ==
PROVIDERS: PCP Family Medicine; Visit Provider Nurse Practitioner Family
DX: R10.9 Unspecified abdominal pain (principal)
CPT/HCPCS: 36415; 80053; 82150; 83690; 85025; 87506

== ENCOUNTER → 2020-09-02 14:02 | Outpatient (CLI) | payer OTHER, SELFPAY ==
[2019-10-31 08:19] VITALS: BMI 36.7
== END ==
LOC: MFPLAB 14:03
PROVIDERS: PCP Family Medicine; Visit Provider Nurse Practitioner Family
DX: R53.83 Other fatigue (principal)
CPT/HCPCS: 87635; U0005; U0003

== ENCOUNTER → 2020-09-04 14:09 | Outpatient (CLI) | payer OTHER, SELFPAY ==
[2019-10-31 08:19] VITALS: BMI 36.7
== END ==
PROVIDERS: PCP Family Medicine; Referring Provider Family Medicine; Visit Provider Family Medicine
DX: R19.7 Diarrhea, unspecified (principal)
CPT/HCPCS: 87493

== ENCOUNTER → 2020-09-26 08:50 | Outpatient (CLI) | payer OTHER, SELFPAY ==
[2019-10-31 08:19] VITALS: BMI 36.7
[2020-09-26 10:16] LABS: Absolute Lymphocyte Count 2.65 X10^3/uL (0.83-4.51); Absolute Neutrophil Count 3.5 X10^3/uL (2.0-7.7); Basophil# 0.05 X10^3/uL; Basophil% 0.7 % (0-1); Eosinophil# 0.14 X10^3/uL; Eosinophils% 2.1 % (0-5); Hematocrit 40.2 % (37-47); Hemoglobin 13.3 g/dL (12.0-15.0); Lymphocyte # 2.65 X10^3/ul (4.0); Mean Corp Hgb Conc 33.1 g/dL (32-36); Mean Corpuscular Hgb 29.8 pg (27.0-32.0); Mean Corpuscular Volume 90.1 fL (81-99); Mean Platelet Vol. 10.2 fl (6.2-12.0); Monocyte# 0.47 X10^3/uL; Monocyte% 6.9 % (0-10); NRBC Flagged by Analyzer 0 % (0-5); Neutrophil # 3.48 X10^3/uL (2.7-7.7); Neutrophil % 51.2 % (47-70); Platelet Count 262 K/mm3 (150-450); RBC Distribution Width CV 12.9 % (11.6-14.6); RBC Distribution Width SD 42.5 fl (35.1-43.9); Red Blood Count 4.46 M/mm3 (4.2-5.4); White Blood Count 6.8 K/mm3 (4.4-11.0)
[2020-09-26 10:39] LABS: Vitamin D,25 Hydroxy 26.6 ng/mL
[2020-09-26 10:49] LABS: AST(SGOT) 19 U/L (15-37); Alanine Aminotransfer ALT/SGPT 36 U/L (13-56); Albumin, Serum 3.4 g/dL (3.2-5.0); Alkaline Phosphatase 73 U/L (45-117); Anion Gap 6 (5-15); BUN 13 mg/dL (7-18); BUN/Creat Ratio 17.2 RATIO (10-20); Calcium,Total 8.4 mg/dL (8.5-10.1); Chloride 109 mmol/L (98-107); Cholesterol 281 mg/dL (200); Creatinine, Serum 0.76 mg/dL (0.55-1.02); EST Glomerular Filtration Rate 86 mL/min (>60); Est Glom Filt Rate - Afr Amer 104 mL/min (>60); Globulin 3.5 g/dL (2.2-4.2); Glucose 116 mg/dL (74-106); High Density Lipoprotein 31 mg/dL; Magnesium 2.2 mg/dL (1.6-2.6); Potassium 4.1 mmol/L (3.5-5.1); Protein, Total 6.9 g/dL (6.4-8.2); Sodium Level 138 mmol/L (136-145); Thyroid Stim Hormone (TSH) 1.14 uIU/mL (0.358-3.74); Triglycerides 945 mg/dL
== END ==
PROVIDERS: PCP Family Medicine; Referring Provider Family Medicine; Visit Provider Family Medicine
DX: K21.9 Gastro-esophageal reflux disease without esophagitis (principal); E03.9 Hypothyroidism, unspecified; E78.5 Hyperlipidemia, unspecified; E55.9 Vitamin D deficiency, unspecified
CPT/HCPCS: 36415; 80053; 80061; 82306; 83735; 84439; 84443; 85025

== ENCOUNTER → 2020-11-07 08:44 | Outpatient (CLI) | payer OTHER, SELFPAY ==
[2019-10-31 08:19] VITALS: BMI 36.7
[2020-11-07 10:18] LABS: Erythrocyte Sedimentation Rate 14 mm/hr (0-30)
[2020-11-07 10:24] LABS: CRP 8.51 mg/L (0.0-3.0)
== END ==
LOC: MFPLAB 08:45
PROVIDERS: PCP Family Medicine; Referring Provider Family Medicine; Visit Provider Family Medicine
DX: M79.7 Fibromyalgia (principal)
CPT/HCPCS: 36415; 85652; 86140

== ENCOUNTER → 2021-02-05 16:23 | Outpatient (CLI) | payer OTHER, SELFPAY ==
[2019-10-31 08:19] VITALS: BMI 36.7
--- NOTE | 2021-02-05 16:25 | RAD_ITS ---
History: LUMBAR RADICULOPATHY Lumbar spine 5 views: Comparison: October 21, 2015 Findings: No fracture or subluxation. Disc implant again noted at the L5-S1 level with bony fusion and bilateral interpedicular screws. No evidence of hardware failure. Pedicles and posterior elements appear intact. IMPRESSION: No acute abnormality. Stable postoperative changes of L5-S1 at 1656 Reported and signed by: Bello Lehman MD Electronically Signed: Bello Lehman MD at 16:54 EDT Tel , Service support , RAD/L/S Spine Min 4 Views
== END ==
PROVIDERS: PCP Family Medicine; Referring Provider Family Medicine; Visit Provider Family Medicine
DX: M54.16 Radiculopathy, lumbar region (principal)
CPT/HCPCS: 72110

== ENCOUNTER → 2021-08-07 10:18 | Day surgery (SDC) | payer OTHER, SELFPAY ==
[2021-08-07 11:00] VITALS: BP 144/85; PULSE 75; RESP 16; TEMP 36.4; O2SAT 100
[2021-08-07] MEDS: Lidocaine Jelly 2% 20 ML Syringe (URO-JET) 20 APPLIC (11:00)
== END ==
PROVIDERS: PCP Family Medicine; Referring Provider Family Medicine; Visit Provider Surgery
PROC: F00ZJWZ Instrumental Swallowing and Oral Function Assessment using Swallowing Equipment (ICD-10-PCS; CPT 43235; principal; 2021-08-07 10:30)
DX: K44.9 Diaphragmatic hernia without obstruction or gangrene (principal)
CPT/HCPCS: 91010

== ENCOUNTER → 2021-08-20 07:38 | Outpatient (CLI) | payer OTHER, SELFPAY ==
--- NOTE | 2021-08-20 07:55 | RAD_ITS ---
EXAMINATION: UPPER GI SERIES INDICATION: Female, 51 years dysphagia. FLUOROSCOPY TIME (if supplied): (1:00) minutes/seconds. 10 images were obtained. TECHNIQUE: Radiographic and fluoroscopic images of the distal esophagus, stomach, and proximal small intestine were obtained following the oral ingestion of barium. COMPARISON: None. FINDINGS: There is no evidence for organomegaly, abnormal calcifications, or abnormal bowel gas pattern. The psoas margins and flank stripes are normal. The visualized osseous structures are normal. The mucosa of the esophagus, stomach and duodenum is normal in appearance without evidence for stricture, ulceration, mass or diverticulum. There is no evidence for hiatal hernia or gastroesophageal reflux. IMPRESSION: 1. Normal upper gastrointestinal study. Electronically Signed: Chet Franklin MD at 15:43 EST , Service support , STUDY: X-RAY - ESOPHAGUS (BARIUM SWALLOW) WITH FLUOROSCOPY REASON FOR EXAM: Female, 51 years old. R13.10 - Dysphagia, unspecified TECHNIQUE: 8 view(s) of the esophagus were obtained following swallowing of barium. FLUOROSCOPY TIME (if supplied): (9 seconds) minutes/seconds COMPARISON: None. FINDINGS: There is no demonstrated esophageal foreign body. There is no demonstrated stricture or mucosal abnormality. Normal gastroesophageal junction, without a demonstrated hiatal hernia. The patient ingested a 12 mm tablet of barium without any difficulty. Normal visualized aortic arch and descending thoracic aorta. Normal visualized pulmonary parenchyma. Normal visualized osseous structures of the thorax. RAD/Upper GI w/BA Swallow IMPRESSION: Normal plain film x-ray examination (barium swallow) of the esophagus. Electronically Signed: Chet Franklin MD at 15:44 EST , Service support ,
--- NOTE | 2021-08-20 12:05 | RAD_ITS ---
STUDY: X-RAY - LUMBAR SPINE REASON FOR EXAM: Female, 51 years old. LOW BACK PAIN TECHNIQUE: 1 view(s) of the lumbar spine were obtained. COMPARISON: None FINDINGS: Limited examination due to the presence of oral contrast. RAD/Spine 1 View Any Level IMPRESSION: Limited examination due to the presence of barium. Repeat examination recommended. Electronically Signed: Chet Franklin MD at 9:35 EST , Service support ,
== END ==
PROVIDERS: PCP Family Medicine; Referring Provider Surgery; Visit Provider Surgery
DX: R13.10 Dysphagia, unspecified (principal); K21.9 Gastro-esophageal reflux disease without esophagitis; K44.9 Diaphragmatic hernia without obstruction or gangrene; M54.50 Low back pain, unspecified
CPT/HCPCS: 72020; 74246

== ENCOUNTER 2021-09-04 09:37 | Outpatient (CLI) | payer OTHER, SELFPAY ==
--- NOTE | 2021-09-04 09:39 | RAD_ITS ---
STUDY: X-RAY - LUMBAR SPINE REASON FOR EXAM: Female, 51 years old. Back pain TECHNIQUE: 3 view(s) of the lumbar spine were obtained. COMPARISON: None FINDINGS: Normal lumbar lordosis. There is no substantial scoliosis. There is a normal alignment of the vertebrae. Status post surgical fusion at L5-S1. Normal vertebral bodies with mild spurring at the endplates. Normal disc space heights. The soft tissue structures are unremarkable. RAD/Lumbar Spine 2 or 3 Views IMPRESSION: Mild degenerative changes and postsurgical changes as noted of the lumbar spine. Electronically Signed: Anthony Cooper DO at 17:06 EST Tel [phone], Service support ,
== END 2021-09-04 23:59 | disposition short-term general hospital (02) ==
LOC: MTRAD 09:38
PROVIDERS: PCP Family Medicine; Referring Provider Family Medicine; Visit Provider Family Medicine
DX: M54.50 Low back pain, unspecified (principal)
CPT/HCPCS: 72100

== ENCOUNTER → 2024-06-20 | Outpatient (CLI) | payer BC, SELFPAY ==
--- OUTSIDE RECORDS SUMMARY | 2024-06-20 10:16 | XMS RPT_ITS | CCD ---
Author Organization [facility] Care Team Providers Care Check And Transfer Beader Name Role Phone LetyKing ceballos Unavailable Unavailable PROVIDER, UNKNOWN Unavailable Unavailable Kendell Guan Unavailable Unavailable [facility] Attending Unava ilable [facility] Primary Care Unava ilable [facility] Admitting Unava ilable Caprice METAL FENCE ERECTOR.Thad NOLAN Primary Care Provider [phone] Perez Rooney MD Primary Care Provider Caprice METAL FENCE ERECTOR.Thad NOLAN Primary Care Provider [phone] DELLA HASSAN MD Attending Unavailable Perez Rooney MD Primary Care Provider ANITHA ROONEYA Kayla Primary Care Unavailable TALAMPCHRISTINA PEREZ Kayla Primary Care Unavailable TALAMPCHRISTINA, PEREZ Kayla Primary Care Unavailable KERRI MARVIN Attending Unavailable JEROME ALVARES Attending Unavailable THAD VASQUES Referring Unavailable COLTENAMPCHRISTINA PEREZ Kayla Primary Care Unavailable THAD VASQUES Attending Unavailable AVNI PEREZ Kayla Primary Care Unavailable THAD VASQUES Attending Unavailable COLTENAMPCHRISTINA PEREZ D Primary Care Unavailable THAD VASQUES Attending Unavailable AVNI PEREZ Kayla Primary Care Unavailable Allergies Allergy Classification Reported Allergen(s) Allergy Type Date of Onset Reaction(s) Facility (20 sources) HMG-CoA reductase inhibitor; Translations: [[id number] A REDUCTASE INHIBITORS] Drug Allergy [address] [facility] (20 sources) Morphine; Translations: [MORPHINE] Drug Allergy [address] [facility] Work Phone: (20 sources) Penicillins; Translations: [PENICILLINS] Propensity to adverse reactions [address] [facility] Work Phone: (20 sources) SUMAtriptan; Translations: [SUMATRIPTAN SUCCINATE] Drug Allergy [address] [facility] Work Phone: (20 sources) atorvastatin; Translations: [ATORVASTATIN] Drug Allergy [address] [facility] Work Phone: (20 sources) SUMAtriptan; Translations: [SUMATRIPTAN] Drug Allergy 6 Other: See Comments [facility] Work Phone: Medications Current Medications Medication Drug Class(es) Dates Sig (Normalized) Sig (Original) azithromycin 250 mg oral tablet (3 sources) Macrolide Antimicrobial Start: 08-05-2023 End: 08-14-2023 take 2 tablets by mouth once daily, then take 1 tablet by mouth once daily azithromycin (ZITHROMAX) 250 mg tablet Indications: Sinus pressure Take 2 tablets by mouth once daily for 1 day, THEN 1 tablet once daily for 4 days. 6 tablet 0 08/10/2023 08/14/2023 Active Comment on above: Take 2 tablets by [facility] once daily for 1 day, THEN 1 tablet once daily for 4 days. Blood Pressure Monitor (BLOOD PRESSURE KIT) (8 sources) Start: 12-24-2023 Blood Pressure Monitor (BLOOD PRESSURE KIT) Indications: Primary hypertension 1 Each once daily. 1 Each 1 12/24/2023 Active cholecalciferol 0.125 mg oral capsule (20 sources) Vitamin D Start: 06-05-2015 take 1 capsule by mouth once daily Cholecalciferol, Vitamin D3, 125 mcg (5,000 unit) cap Take 1 capsule by mouth once daily. 06/05/2015 Active Comment on above: Take 1 capsule by [facility] once daily. collagen, hydrolysate, bovine, (COLLAGEN, HYDR, BOVINE,, BULK,) 100 % powd (20 sources) collagen, hydrolysate, bovine, (COLLAGEN, HYDR, BOVINE,, BULK,) 100 % powd 1 Scoop twice daily. Active collagen, hydrol ysate, bovine, (COLLAGEN, HYDR, BOVINE,, BULK,) 100 % powd 1 Scoop twice daily. 0 Active Comment on above: 1 Scoop twice daily. cyclobenzaprine hydrochloride 10 mg oral tablet (12 sources) Muscle Relaxant Start: 05-23-20 take 1 tablet by mouth twice daily as needed for pain cyclobenzaprine (FLEXERIL) 10 mg tablet Indications: Left sided sciatica , Right arm pain Take 1 tablet by mouth two times a day as needed for muscle spasm or pain. 60 tablet 3 05/23/2024 Active Start: 10-05-2023 End: 05-23-2024 take 1 tablet by mouth once daily at bedtime cyclobenzaprine (FLEXERIL) 10 mg tablet Indications: Left sided sciatica Take 1 tablet by mouth daily at bedtime. 9 tablet 10/05/2023 05/23/2024 Discontinued Comment on above: Take 1 tablet by destiin th daily at bedtime. DULoxetine 60 mg delayed release oral capsule (20 sources) Serotonin and Norepinephrine Reuptake Inhibitor Start: 04-21-20 End: 06-05-20 take 1 capsule by mouth once daily DULoxetine (CYMBALTA) 60 mg capsule Indications: Fibromyalgia Take 1 capsule by mouth once daily. 90 capsule 3 06/05/2024 Active Start: 02-16-2023 End: 02-16-2023 take 1 capsule by mouth once daily DULoxetine (CYMBALTA) 60 mg capsule Take 1 capsule by mouth once daily. 90 capsule 3 02/16/2023 Active Start: 10-19-2022 End: 02-13-2023 take 1 capsule by mouth once daily DULoxetine (CYMBALTA) 60 mg capsule Take 1 capsule by mouth once daily. Start after 1 month on 30 mg dose 30 capsule 3 10/19/2022 02/13/2023 Discontinued Start: 10-19-2022 take 1 capsule by [facility] once daily DULoxetine (CYMBALTA) 60 mg capsule Take 1 capsule by mouth once daily. Start after 1 month on 30 mg dose 30 capsule 3 10/19/2022 Active Start: 10-19-2022 take 1 capsule by mo ut once daily DULoxetine (CYMBALTA) 60 mg capsule Take 1 capsule by mouth once daily. Start after 1 month on 30 mg dose 30 capsule 3 10/19/2022 Active Start: 09-23-2022 End: 02-16-2023 take 1 capsule by mouth once daily DULoxetine (CYMBALTA) 30 mg capsule Take 1 capsule by mouth once daily. 30 capsule 0 09/23/2022 02/16/2023 Discontinued Comment on above: Take 1 capsule by [facility] once daily. Take 1 capsule by [facility] once daily. Start after 1 month on 30 mg dose esomeprazole 40 mg delayed release oral capsule (20 sources) Proton Pump Inhibitor Start: 09-08-19 End: 03-15-20 take 1 capsule by mouth once daily before breakfast esomeprazole (NEXIUM) 40 mg capsule Indications: Gastroesophageal reflux disease without esophagitis Take 1 capsule by mouth daily before breakfast. 90 capsule 2 03/15/2024 Active End: 09-08-2022 take 20 mg by mouth twice daily esomeprazole mag-glycerin 20 mg kcsp Take 20 mg by mouth twice daily. 0 09/08/2022 Discontinued Comment on above: Take 20 mg by mouth twice daily. Take 1 capsule by [facility] daily before breakfast. famotidine 40 mg oral tablet (20 sources) Histamine-2 Receptor Antagonist Start: 09-08-19 End: 03-15-20 take 1 tablet by mouth once daily famotidine (PEPCID) 40 mg tablet Indications: Gastroesophageal reflux disease without esophagitis Take 1 tablet by mouth once daily. 90 tablet 2 03/15/2024 Active Comment on above: Take 1 tablet by [facility] once daily. fluticasone propionate 0.05 mg/actuat metered dose nasal spray (20 sources) Corticosteroid Start: 09-08-19 End: 01-14-20 take 1 spray(s) nasal route once daily fluticasone (FLONASE) 50 mcg/actuation nasal spray Indications: Seasonal allergic rhinitis, unspecified trigger Use 1 [place] in each nostril once daily. 1 Each 1 01/14/2024 Active Comment on above: Use 1 [place] in each nostril once daily. Lactobacill 46-B.animal-inulin (PROBIOTIC-10, WITH INULIN,) 10 billion cell -100 mg cap (20 sources) Lactobacill 46-B.animal-inulin (PROBIOTIC-10, WITH INULIN,) 10 billion cell -100 mg cap Take 400 mg by mouth once daily. Active Lactobacill 46-B .animal-inulin (PROBIOTIC-10, WITH INULIN,) 10 billion cell - 100 mg cap Take 400 mg by mouth once daily. 0 Active Comment on above: Take 400 mg by mouth once daily. loratadine 10 mg oral tablet (20 sources) Start: 3 End: 4 take 1 tablet by mouth once daily loratadine (CLARITIN) 10 mg tablet Take 1 tablet by mouth once daily. 90 tablet 2 12/23/2023 Active Comment on above: Take 10 mg by mouth once daily. Take 1 tablet by destini th once daily. losartan potassium 25 mg oral tablet (9 sources) Angiotensin 2 Receptor Stevo Start: 4 End: 4 take 1 tablet by mouth once daily losartan (COZAAR) 25 mg tablet Indications: Primary hypertension Take 1 tablet by mouth once daily. 30 tablet 5 05/23/2024 Active meloxicam 15 mg oral tablet (3 sources) Nonsteroidal Anti-inflammatory Drug Start: 4 take 1 tablet by mouth once daily at mealtime meloxicam (MOBIC) 15 mg tablet Indications: Right arm pain Take 1 tablet by mouth once daily. With food. 30 tablet 5 05/23/2024 Active Completed/Discontinued Medications Medication Drug Class(es) Dates Sig (Normalized) Sig (Original) 24 hr buPROPion hydrochloride 300 mg extended release oral tablet (20 sources) Aminoketone Start: 09-23-2022 End: 05-23-2024 take 1 tablet by mouth once daily buPROPion XL (WELLBUTRIN XL) 300 mg 24 hr tablet Indications: Obesity, Class II, BMI 35-39.9 , Mild episode of recurrent major depressive disorder (HCC) Take 1 tablet by mouth once daily. 90 tablet 2 07/08/2023 05/23/2024 Discontinued Start: 09-08-2022 End: 09-23-2022 take 1 tablet by mouth once daily buPROPion XL (WELLBUTRIN XL) 150 mg 24 hr tablet Indications: Obesity, Class II, BMI 35-39.9 , Mild episode of recurrent major depressive disorder (HCC) Take 1 tablet by mouth once daily. 30 tablet 2 09/08/2022 09/23/2022 Discontinued Comment on above: Take 1 tablet by destini th once daily. gabapentin 300 mg oral capsule (2 sources) Anti-epileptic Agent Start : 02-03 End: 09-08 gabapentin(NEURONTIN 300 MG CAP) Take one(1) capsule four(4) times daily. 0 02/03/2010 09/08/2022 Discontinued Comment on above: Take one(1) capsule four(4) times daily. hydroCHLOROthiazide 25 mg oral tablet (1 source) Thiazide Diuretic Start : 03-23 End: 04-21 take 1 tablet by mouth once daily hydroCHLOROthiazide 25 mg tablet Indications: Primary hypertension Take 1 tablet by mouth once daily. 30 tablet 5 03/23/2023 04/21/2023 Discontinued Comment on above: Take 1 tablet by destini once daily. hydroCHLOROthiazide 25 mg / triamterene 37.5 mg oral tablet (2 sources) Potassium-sparing Diuretic, Thiazide Diuretic Start : 09-24 End: 09-08 TRIAMTERENE-HYDROCHLOROT HIAZIDE 37.5 MG-25 MG TAB Indications: Edema 1/2 to one tablet daily as neded for edema 30 5 09/24/2009 09/08/2022 Discontinued Comment on above: 1/2 to one tablet da reza as neded for edema 2 ml ketorolac tromethamine 30 mg/ml injection (1 source) Nonsteroidal Anti-inflammatory Drug, Cyclooxygenase Inhibitor Start : 02-16 End: 02-16 keTORolac 60 mg injection (Toradol) Start: 02-16-2023 End: 02-16-2023 keTORolac 60 mg injection (T oradol) naproxen 500 mg oral tablet (2 sources) Nonsteroidal Anti-inflammatory Drug Start: 12-09-2009 End: 09-08-2022 naproxen(NAPROSYN 500 MG TAB) Indications: Right ankle pain Take one(1) tab two(2) times daily with food for pain. 20 0 12/09/2009 09/08/2022 Discontinued Comment on above: Take one(1) tab two( 2) times daily with food for pain. predniSONE 20 mg oral tablet (9 sources) Start: 01-14-2024 End: 05-23-2024 predniSONE (DELTASONE) 20 mg tablet Indications: Right arm pain 1 tablet three times a day for 3 days, then 2 times a day for 3 days, the one daily for 3 days. 18 tablet 01/14/2024 05/23/2024 Discontinued Start: 10-05-2023 End: 10-14-2023 predniSONE (DELTASONE) 10 mg tablet Indications: Left sided sciatica Take 4 tabs daily for 3 days, then 2 tabs daily for 3 days, then 1 tab daily for 3 days with food. 21 tablet 0 10/05/2023 10/14/2023 Active Start: 02-07-2010 End: 09-08-2022 PREDNISONE 20 MG TAB Day 1-2 take 3 tabs in the am, Day 3-4 take 2 tabs in the am, Day 5-6 take 1 tab in the am 12 0 02/07/2010 09/08/2022 Discontinued Comment on above: Day 1-2 take 3 tabs in the am, Day 3-4 take 2 tabs in the am, Day 5-6 take 1 tab in the am Take 4 tabs daily fo r 3 days, then 2 tabs daily for 3 days, then 1 tab daily for 3 days with food. 24 hr propranolol hydrochloride 80 mg extended release oral capsule (2 sources) beta-Adrenergic Stevo Start: 3 take 1 capsule by mouth once daily propranolol ER (INDERAL LA) 80 mg 24 hr capsule Indications: Intractable migraine with aura with status migrainosus Take 1 capsule by mouth once daily. 30 capsule 2 02/16/2023 Active Comment on above: Take 1 capsule by [facility] once daily. sucralfate 1000 mg oral tablet (10 sources) Aluminum Complex Start: 3 End: 3 take 1 tablet by mouth at bedtime sucralfate (CARAFATE) 1 gram tablet Take 1 tablet by mouth before meals and at bedtime. 120 tablet 3 09/23/2022 02/16/2023 Discontinued Comment on above: Take 1 tablet by destini before meals and at bedtime. topiramate 25 mg oral tablet (12 sources) Start: 3 End: 4 topiramate (TOPAMAX) 25 mg tablet Indications: Migraine with aura and without status migrainosus, not intractable 07/02/2023 05/23/2024 Discontinued Start: 03-23-2023 End: 04-21-2023 take 1 tablet by mouth twice daily topiramate (TOPAMAX) 25 mg tablet Indications: Intractable migraine with aura with status migrainosus , Obesity, Class II, BMI 35-39.9 Take 1 tablet by mouth twice daily. 60 tablet 5 03/23/2023 04/21/2023 Discontinued Comment on above: Take 1 tablet by destini moya twice daily. Problems Active Problems Problem Classification Problem Date Documented Date Episodic/Chronic Adjustment disorders (1 source) Stress and adjustment reaction; Translations: [Adjustment disorder with other symptoms] 12-24-2023 Chronic Disorders of lipid metabolism (20 sources) Hyperlipidemia; Translations: [Hyperlipidemia, unspecified] Onset: 02-09-2009 02-09-2009 Chronic Esophageal disorders (20 sources) Gastroesophageal reflux disease without esophagitis; Translations: [Gastro-esophageal reflux disease without esophagitis] Onset: 10-05-2006 Chronic Essential hypertension (6 sources) Essential hypertension; Translations: [Essential (primary) hypertension] Onset: 08-05-2023 04-21-2023 Chronic Headache; including migraine (20 sources) Migraine without aura; Translations: [Migraine without aura, not intractable, without status migrainosus] Onset: 10-27-2007 Resolved: 02-16-2023 10-27-2007 Chronic Mood disorders (20 sources) Recurrent major depressive episodes, mild ; Translations: [Major depressive disorder, recurrent, mild] Onset: 01-19-2007 09-08-2022 Chronic Other aftercare (8 sources) Patient encounter status; Translations: [Encounter for therapeutic drug level monitoring] Episodic Other circulatory disease (1 source) Elevated blood-pressure reading without diagnosis of hypertension; Translations: [Elevated blood-pressure reading, without diagnosis of hypertension] Episodic Other connective tissue disease (20 sources) Fibromyalgia; Translations: [Fibromyalgia] Onset: 09-23-2022 Episodic Other connective tissue disease (3 sources) Pain in right arm; Translations: [Pain in right arm] 01-14-2024 Episodic Other connective tissue disease (1 source) Pain in right arm; Translations: [Right arm pain] Onset: 06-02-2024 Episodic Other nervous system disorders (1 source) Paresthesia of right upper limb; Translations: [Paresthesia of skin] 06-02-2024 Episodic Other nutritional; endocrine; and metabolic disorders (20 sources) Obese class II; Translations: [Obesity, unspecified] Onset: 09-08-2022 09-08-2022 Chronic Other upper respiratory disease (20 sources) Allergic rhinitis; Translations: [Allergic rhinitis, unspecified] Onset: 10-05-2006 09-08-2022 Chronic Other upper respiratory disease (4 sources) Seasonal allergic rhinitis; Translations: [Other seasonal allergic rhinitis] Chronic Other upper respiratory disease (2 sources) Nasal sinus problem; Translations: [Other specified disorders of nose and nasal sinuses] 08-05-2023 Episodic Spondylosis; intervertebral disc disorders; other back problems (20 sources) Degeneration of lumbosacral intervertebral disc; Translations: [Other intervertebral disc degeneration, lumbosacral region] Onset: 03-12-2004 03-12-2004 Chronic Spondylosis; intervertebral disc disorders; other back problems (2 sources) Sciatica; Translations: [Sciatica, left side] 10-05-2023 Episodic Sprains and strains (1 source) Rupture of tendon of biceps; Translations: [Strain of muscle, fascia and tendon of other parts of biceps, right arm, initial encounter] 06-02-2024 Episodic Thyroid disorders (20 sources) Hypothyroidism; Translations: [Hypothyroidism, unspecified] Onset: 09-08-2022 09-08-2022 Chronic Past or Other Problems Problem Classification Problem Date Documented Date Episodic/Chronic Abdominal hernia (20 sources) Hiatal hernia; Translations: [Diaphragmatic hernia without obstruction or gangrene] Onset: 09-08-2022 09-08-2022 Episodic Headache; including migraine (20 sources) Headache; Translations: [Headache] Onset: 11-16-2008 Resolved: 09-08-2022 11-16-2008 Episodic Hemorrhoids (13 sources) Hemorrhoids; Translations: [Unspecified hemorrhoids] Onset: 08-05-2023 08-05-2023 Episodic Immunizations and screening for infectious disease (1 source) Encounter for immunization; Translations: [Encounter for immunization] Onset: 08-05-2023 Episodic Malaise and fatigue (13 sources) Fatigue; Translations: [Other fatigue] Onset: 08-05-2023 08-05-2023 Episodic Other connective tissue disease (9 sources) Pain in limb; Translations: [Pain in unspecified limb] Onset: 08-12-2007 Resolved: 09-08-2022 09-08-2022 Episodic Other eye disorders (2 sources) Ocular pain, left eye; Translations: [Ocular pain, left eye] Onset: 04-19-2017 Episodic Other injuries and conditions due to external causes (2 sources) Unspecified injury of left eye and orbit, initial encounter; Translations: [UNSPECIFIED INJURY OF LEFT EYE AND ORBIT INITIAL] Onset: 04-19-2017 Episodic Other nervous system disorders (13 sources) Numbness and tingling sensation of skin; Translations: [Anesthesia of skin] Onset: 08-05-2023 08-05-2023 Episodic Other screening for suspected conditions (not mental disorders or infectious disease) (4 sources) Mammography abnormal; Translations: [Other abnormal and inconclusive findings on diagnostic imaging of breast] Onset: 08-05-2023 Episodic Residual codes; unclassified (13 sources) H/O Spinal surgery; Translations: [Other specified postprocedural states] Onset: 08-05-2023 08-05-2023 Episodic Results Test Name Value Interpretation Reference Range Facility CNOV 06-02-2024 CNOV Office Visit (FRFHWS ) JACKY WOLFE ([id number]) 1970 F Date Time Provider Department 06/02/24 3:00 PM [facility] During your visit today, we recorded the following information about you: Magnolia Saucedo MA 06/02/2024 3:46 PM Signed AMB ROOMING INTAKE FLOWSHEET DATA Pain Pain Level: 10 Pain Location: Arm-Upper Right Description: Shooting, Burning, Numbness Duration Amount of Time: 8 Duration Units: Months Frequency: Continuous Intervention/Comfort measure: Medication Patient here today for right upper arm pain. States this was originally a [facility] claim, but they denied the claim. 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 She is not longer working at that employer. 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 She is right hand dominant. Had MRI at [facility] in October 2023. Jerome Alvares V, DO 06/02/2024 3:46 PM Signed SERVICE DATE: June 02, 2024 PCP: Perez Rooney MD Subjective Patient ID: Nguyen is a 54 year old female. Chief Complaint: Patient presents with: right biceps pain REF: [place] PAIN EVALUATION 06/02/2024 1510 Pain Level: 10 Pain Location: Arm-Upper Right Description: Shooting;Burning;Numbne ss Duration Amount of Time: 8 Duration Units: Months Frequency: Continuous Intervention/Comfort measure: Medication HPI 54-year-old female [id number] presents with right arm and shoulder pain. She reports this pain has been present approximately 8 months. He was initially evaluated for Worker's Comp. injury by occupational health but was determined that this was not workers related so she has not been seeking treatment until recently. She has a deformity of the right bicep since the injury. She describes numbness and tingling that go down into the hand with activity and at night. She is noticing a loss of handgrip strength on the right side. Review of Systems ACTIVE PROBLEM LIST Degeneration of Lumbar Or Lumbosacral Intervertebral Disc Esophageal Reflux Allergic Rhinitis Mild Episode of Recurrent Major Depressive Disorder (Hcc) 11.2.1 Cervicogenic headache [ M99] [784.0] Migraine With Aura Hyperlipidemia Obesity, Class II, Bmi 35-39.9 Hiatal Hernia Hypothyroidism Fibromyalgia Depressive Disorder Fatigue Hemorrhoids History of Spinal Surgery History of Hysterectomy Numbness and Tingling Sensation of Skin PAST MEDICAL HISTORY Diagnosis Date Adjustment disorder with depressed mood Esophageal reflux Hiatal hernia 2021 Low back pain Migraines PAST SURGICAL HISTORY Procedure Laterality Date PAST SURGICAL HISTORY OF 02/04/2004 REMOVAL VSP L5 TLIF PAST SURGICAL HISTORY OF Bilateral plantar fasciotomy VAGINAL HYSTERECTOMY UTERUS 250 GM/< Hysterectomy, vaginal FAMILY HISTORY Problem Relation Age of Onset Thyroid Mother Heart Mother Psychiatry Mother depression Hypertension Mother Ischemic Heart Disease Mother Lipids Mother Diabetes Mother Headache Mother Heart Father Psychiatry Father depression Hypertension Father Lipids Father Diabetes Father Headache Father Psychiatry Maternal Grandmother depression Psychiatry Daughter depression Social History Tobacco Use Smoking status: Never Smokeless tobacco: Never Vaping Use Vaping status: Never Used Substance Use Topics Alcohol use: Yes Comment: occassionally Drug use: No ALLERGIES Allergen Reactions Atorvastatin Unknown Imitrex [Sumatripta* Intolerance blood pressure elevation Morphine Vomiting severe vomiting Penicillins Rash [id number] Red* GI Upset Sumatriptan Other: See Comments MEDICATIONS: cyclobenzaprine (FLEXERIL) 10 mg tablet Take 1 tablet by mouth two times a day as needed for muscle spasm or pain. meloxicam (MOBIC) 15 mg tablet Take 1 tablet by mouth once daily. With food. losartan (COZAAR) 25 mg tablet Take 1 tablet by mouth once daily. esomeprazole (NEXIUM) 40 mg capsule Take 1 capsule by mouth daily before breakfast. famotidine (PEPCID) 40 mg tablet Take 1 tablet by mouth once daily. fluticasone (FLONASE) 50 mcg/actuation nasal spray Use 1 [place] in each nostril once daily. loratadine (CLARITIN) 10 mg tablet Take 1 tablet by mouth once daily. DULoxetine (CYMBALTA) 60 mg capsule Take 1 capsule by mouth once daily. Lactobacill 46-B.animal-inulin (PROBIOTIC-10, WITH INULIN,) 10 billion cell -100 mg cap Take 400 mg by mouth once daily. collagen, hydrolysate, bovine, (COLLAGEN, HYDR, BOVINE,, BULK,) 100 % powd 1 Scoop twice daily. Cholecalciferol, Vitamin D3, 125 mcg (5,000 unit) cap Take 1 capsule by mouth once daily. Blood Pressure Monitor (BLOOD PRESSURE KIT) 1 Each once daily. Allergies, medications, past surgical history, family history and past medical history were reviewed per this enc (more content not included)... Normal [facility] CNOVon 05-23-2024 CNOV Office Visit (INTMWS ) RICHIEBoboJACKY ([id number]) 1970 F Date Time Provider Department 05/23/24 3:40 PM THAD VASQUES IN[facility]WS During your visit today, we recorded the following information about you: Pulse Blood pressure Weight 67/minute 154/86 99.9 kg Thad Vasques APRN.INSURANCE RISK MANAGER 05/23/2024 3:33 PM Signed SUBJECTIVE Jacky Wolfe is a 54 year old female here today for a check up on her medical problems. Chief Complaint Patient presents with: Recheck HPI Jacky Wolfe is a 54 year old female. She is an established patient of Perez Rooney MD. Here today for a routine follow up. Last seen 01/13. Here for follow up on blood pressure. Feels like it is elevated some right now because of arm pain. Right arm still giving her issues. Injury was in September. Bicep area. Can move it well but has a lot of muscle tightness and soreness. No weakness in the extremity. Occasional numbness or tingling at night when tight. Denied workers comp case. Was told in the past the bicep is torn. Did not follow up with ortho after referral. Her medications were reviewed today and her list is now up to date. Medications Current Outpatient Medications Medication Sig esomeprazole (NEXIUM) 40 mg capsule Take 1 capsule by mouth daily before breakfast. famotidine (PEPCID) 40 mg tablet Take 1 tablet by mouth once daily. fluticasone (FLONASE) 50 mcg/actuation nasal spray Use 1 [place] in each nostril once daily. loratadine (CLARITIN) 10 mg tablet Take 1 tablet by mouth once daily. DULoxetine (CYMBALTA) 60 mg capsule Take 1 capsule by mouth once daily. Lactobacill 46-B.animal-inulin (PROBIOTIC-10, WITH INULIN,) 10 billion cell -100 mg cap Take 400 mg by mouth once daily. collagen, hydrolysate, bovine, (COLLAGEN, HYDR, BOVINE,, BULK,) 100 % powd 1 Scoop twice daily. Cholecalciferol, Vitamin D3, 125 mcg (5,000 unit) cap Take 1 capsule by mouth once daily. cyclobenzaprine (FLEXERIL) 10 mg tablet Take 1 tablet by mouth two times a day as needed for muscle spasm or pain. meloxicam (MOBIC) 15 mg tablet Take 1 tablet by mouth once daily. With food. losartan (COZAAR) 25 mg tablet Take 1 tablet by mouth once daily. Blood Pressure Monitor (BLOOD PRESSURE KIT) 1 Each once daily. No current facility-administered medications for this visit. ALLERGIES Allergen Reactions Atorvastatin Unknown Imitrex [Sumatripta* Intolerance blood pressure elevation Morphine Vomiting severe vomiting Penicillins Rash Atnzycp-Uun-Dqi Red* GI Upset Sumatriptan Other: See Comments ACTIVE PROBLEM LIST Depressive Disorder - 08/05/2023 Fatigue - 08/05/2023 Hemorrhoids - 08/05/2023 History of Spinal Surgery - 08/05/2023 History of Hysterectomy - 08/05/2023 Numbness and Tingling Sensation of Skin - 08/05/2023 Fibromyalgia - 09/23/2022 Obesity, Class II, Bmi 35-39.9 - 09/08/2022 Hiatal Hernia - 09/08/2022 Hypothyroidism - 09/08/2022 Hyperlipidemia - 02/09/2009 11.2.1 Cervicogenic headache [ M99] [784.0] - 11/16/2008 Migraine With Aura - 11/16/2008 Mild Episode of Recurrent Major Depressive Disorder (Hcc) - 01/19/2007 Esophageal Reflux - 10/05/2006 Allergic Rhinitis - 10/05/2006 Degeneration of Lumbar Or Lumbosacral Intervertebral Disc - 03/12/2004 Social History Tobacco Use Smoking status: Never Smokeless tobacco: Never Vaping Use Vaping status: Never Used Substance Use Topics Alcohol use: Yes Comment: occassionally Drug use: No Review of Systems Respiratory: Negative. Cardiovascular: Negative. Musculoskeletal: Positive for myalgias. OBJECTIVE BP 154/86 Pulse 67 Wt 220 lb 3.8 oz (99.9kg) SpO2 99% Physical Exam Vitals and nursing note reviewed. Constitutional: General: She is awake. She is not in acute distress. Appearance: Normal appearance. She is well-developed and well-groomed. She is not ill-appearing, toxic-appearing or diaphoretic. HENT: Head: Normocephalic. Right Ear: External ear normal. Left Ear: External ear normal. Nose: Nose normal. Eyes: General: Vision grossly intact. Conjunctiva/sclera: Conjunctivae normal. Pupils: Pupils are equal, round, and reactive to light. Neck: Vascular: No JVD. Trachea: Trachea normal. Cardiovascular: Rate and Rhythm: Normal rate and regular rhythm. Pulses: Normal pulses. Heart sounds: Normal heart sounds. No murmur heard. Pulmonary: Effort: Pulmonary effort is normal. No accessory muscle usage, prolonged expiration or respiratory distress. Breath sounds: Normal breath sounds. Musculoskeletal: Cervical back: Neck supple. Skin: General: Skin is warm and dry. Capillary Refill: Capillary refill takes less than 2 seconds. Neurological: General: No focal deficit present. Mental Status: She is alert and oriented to person, place, and time. Mental status is at baseline. Psychiatric: Attention and Perception: Atten (more content not included)... [facility] RICHIEJACKY Broussard ([id number]) 1970 F Date Time Provider Department 01/27/24 IMANI HIGGINBOTHAM During your visit today, we recorded the following information about you: Antwan Cardona MA 01/27/2024 1:15 PM Signed Attempted to reach patient left message for patient to call office back. She is scheduled for an appointment on 02/08/2024 with Imani for right arm pain. Trying to determine clarify what part of her arm is bothering her. Antwan Cardona MA January 27, 2024 1:15 PM Allergies As of Date: 01/27/2024 Noted Allergy Reaction ATORVASTATIN 10/19/2019 16 - Unknown IMITREX (SUMATRIPTAN SUCCINATE) 10/05/2006 5 - Intolerance Comments: blood pressure elevation MORPHINE 01/04/2007 11 - Vomiting Comments: severe vomiting PENICILLINS 08/20/2005 2 - Rash BXMHIUF-[id number]-YJB REDUCTASE INHIBIT*09/08/2022 8 - GI Upset SUMATRIPTAN 06/29/2016 14 - Other: See Comments Date Reviewed: 01/14/2024 Reviewed by: Gabriella Velazquez LPN - Fully Assessed Reason for Visit: Appointment [[id number]] Prescriptions as of 01/27/2024 - fluticasone (FLONASE) 50 mcg/actuation nasal spray Use 1 [place] in each nostril once daily. - predniSONE (DELTASONE) 20 mg tablet 1 tablet three times a day for 3 days, then 2 times a day for 3 days, the one daily for 3 days. - losartan (COZAAR) 25 mg tablet Take 1 tablet by mouth once daily. - Blood Pressure Monitor (BLOOD PRESSURE KIT) 1 Each once daily. - loratadine (CLARITIN) 10 mg tablet Take 1 tablet by mouth once daily. - cyclobenzaprine (FLEXERIL) 10 mg tablet Take 1 tablet by mouth daily at bedtime. - topiramate (TOPAMAX) 25 mg tablet - buPROPion XL (WELLBUTRIN XL) 300 mg 24 hr tablet Take 1 tablet by mouth once daily. - esomeprazole (NEXIUM) 40 mg capsule Take 1 capsule by mouth daily before breakfast. - famotidine (PEPCID) 40 mg tablet Take 1 tablet by mouth once daily. - DULoxetine (CYMBALTA) 60 mg capsule Take 1 capsule by mouth once daily. - Lactobacill 46-B.animal-inulin (PROBIOTIC-10, WITH INULIN,) 10 billion cell -100 mg cap Take 400 mg by mouth once daily. - collagen, hydrolysate, bovine, (COLLAGEN, HYDR, BOVINE,, BULK,) 100 % powd 1 Scoop twice daily. - Cholecalciferol, Vitamin D3, 125 mcg (5,000 unit) cap Take 1 capsule by mouth once daily. Problem List As Of Date 01/27/2024 Noted Resolved LUMB/LUMBOSAC DISC DEGEN [M51.37] 03/12/2004 ESOPHAGEAL REFLUX [K21.9] 10/05/2006 Allergic rhinitis [J30.9] 10/05/2006 Mild episode of recurrent major depressive diso*01/19/2007 Pain in limb [M79.609] 08/12/2007 09/08/2022 Migraine without aura [G43.009] 10/27/2007 02/16/2023 1.5.1 Chronic migraine [346.71] [G43.719] 11/16/2008 09/08/2022 1.5.2 Status migrainosis [346.73] [G43.711] 11/16/2008 09/08/2022 8.2 Medication overuse headache (MOH) [339.3] [*11/16/2008 09/08/2022 11.2.1 Cervicogenic headache [ M99] [784.0] [R*11/16/2008 Migraine with aura [G43.109] 11/16/2008 Hyperlipidemia [E78.5] 02/09/2009 Obesity, Class II, BMI 35-39.9 [E66.9] 09/08/2022 Hiatal hernia [K44.9] 09/08/2022 Hypothyroidism [E03.9] 09/08/2022 Fibromyalgia [M79.7] 09/23/2022 Depressive disorder [F32.A] 08/05/2023 Fatigue [R53.83] 08/05/2023 Hemorrhoids [K64.9] 08/05/2023 History of spinal surgery [Z98.890] 08/05/2023 History of hysterectomy [Z90.710] 08/05/2023 Numbness and tingling sensation of skin [R20.0,*08/05/2023 Encounter Status:Closed by ANTWAN CARDONA on 01/27/24 [facility] CNOVon 01-14-2024 CNOV Office Visit (INTMWS ) JACKY WOLFE ([id number]) 1970 F Date Time Provider Department 01/14/24 10:00 AM THAD VASQUES INTMWS During your visit today, we recorded the following information about you: Pulse Blood pressure Weight 68/minute 120/80 99.3 kg Thad Vasques APRN.INSURANCE RISK MANAGER 01/14/2024 12:44 PM Signed SUBJECTIVE Jacky Wolfe is a 53 year old female here today for a check up on her medical problems. Chief Complaint Patient presents with: Recheck Shoulder Injury: right shoulder and upper arm Rash: requesting injection to treat poison on upper left thing and back of right leg HPI Jacky is a 53 year old female who presents for follow-up for hypertension. They are here today for a recheck of blood pressure. Blood pressure appears to be much improved. Denies any symptoms referable to elevated blood pressure. Specifically denies headache, chest pain, palpitations, dyspnea and peripheral edema. Tolerating medications well. She has continued to have issues with right arm pain, was working with [employer] but case has been denied. Concerns of bruising to the right arm, pain, some weakness. Had an MRI that showed per patient rotator cuff tearing and bicep tearing. Her medications were reviewed today and her list is now up to date. Medications Current Outpatient Medications Medication Sig losartan (COZAAR) 25 mg tablet Take 1 tablet by mouth once daily. loratadine (CLARITIN) 10 mg tablet Take 1 tablet by mouth once daily. cyclobenzaprine (FLEXERIL) 10 mg tablet Take 1 tablet by mouth daily at bedtime. topiramate (TOPAMAX) 25 mg tablet buPROPion XL (WELLBUTRIN XL) 300 mg 24 hr tablet Take 1 tablet by mouth once daily. esomeprazole (NEXIUM) 40 mg capsule Take 1 capsule by mouth daily before breakfast. famotidine (PEPCID) 40 mg tablet Take 1 tablet by mouth once daily. DULoxetine (CYMBALTA) 60 mg capsule Take 1 capsule by mouth once daily. Lactobacill 46-B.animal-inulin (PROBIOTIC-10, WITH INULIN,) 10 billion cell -100 mg cap Take 400 mg by mouth once daily. collagen, hydrolysate, bovine, (COLLAGEN, HYDR, BOVINE,, BULK,) 100 % powd 1 Scoop twice daily. Cholecalciferol, Vitamin D3, 125 mcg (5,000 unit) cap Take 1 capsule by mouth once daily. fluticasone (FLONASE) 50 mcg/actuation nasal spray Use 1 [place] in each nostril once daily. predniSONE (DELTASONE) 20 mg tablet 1 tablet three times a day for 3 days, then 2 times a day for 3 days, the one daily for 3 days. Blood Pressure Monitor (BLOOD PRESSURE KIT) 1 Each once daily. No current facility-administered medications for this visit. ALLERGIES Allergen Reactions Atorvastatin Unknown Imitrex [Sumatripta* Intolerance blood pressure elevation Morphine Vomiting severe vomiting Penicillins Rash Rrdvzvr-Knh-Mtf Red* GI Upset Sumatriptan Other: See Comments ACTIVE PROBLEM LIST Depressive Disorder - 08/05/2023 Fatigue - 08/05/2023 Hemorrhoids - 08/05/2023 History of Spinal Surgery - 08/05/2023 History of Hysterectomy - 08/05/2023 Numbness and Tingling Sensation of Skin - 08/05/2023 Fibromyalgia - 09/23/2022 Obesity, Class II, Bmi 35-39.9 - 09/08/2022 Hiatal Hernia - 09/08/2022 Hypothyroidism - 09/08/2022 Hyperlipidemia - 02/09/2009 11.2.1 Cervicogenic headache [ M99] [784.0] - 11/16/2008 Migraine With Aura - 11/16/2008 Mild Episode of Recurrent Major Depressive Disorder (Hcc) - 01/19/2007 Esophageal Reflux - 10/05/2006 Allergic Rhinitis - 10/05/2006 Degeneration of Lumbar Or Lumbosacral Intervertebral Disc - 03/12/2004 Social History Tobacco Use Smoking status: Never Smokeless tobacco: Never Vaping Use Vaping Use: Never used Substance Use Topics Alcohol use: Yes Comment: occassionally Drug use: No Review of Systems Respiratory: Negative. Cardiovascular: Negative. Musculoskeletal: Positive for arthralgias and myalgias. OBJECTIVE BP 120/80 Pulse 68 Wt 219 lb (99.3kg) SpO2 99% Physical Exam Vitals and nursing note reviewed. Constitutional: General: She is awake. She is not in acute distress. Appearance: Normal appearance. She is well-developed and well-groomed. She is not ill-appearing, toxic-appearing or diaphoretic. HENT: Head: Normocephalic. Right Ear: External ear normal. Left Ear: External ear normal. Nose: Nose normal. Eyes: General: Vision grossly intact. Conjunctiva/sclera: Conjunctivae normal. Pupils: Pupils are equal, round, and reactive to light. Neck: Vascular: No JVD. Trachea: Trachea normal. Cardiovascular: Rate and Rhythm: Normal rate and regular rhythm. Pulses: Normal pulses. Heart sounds: Normal heart sounds. No murmur heard. Pulmonary: Effort: Pulmonary effort is normal. No accessory muscle usage, prolonged expiration or respiratory distress. Breath sounds: Normal breath sounds. Musculoskeletal: Right upper arm: Swelling and (more content not included)... Normal [facility] CNOVon 12-24-2023 CNOV Office Visit (INTMWS ) JACKY WOLFE ([id number]) 1970 F Date Time Provider Department 12/24/23 1:40 PM THAD VASQUES During your visit today, we recorded the following information about you: Pulse Blood pressure Weight 69/minute 146/88 97.5 kg Thad Vasques APRN.INSURANCE RISK MANAGER 12/24/2023 2:45 PM Signed SUBJECTIVE Jacky Wolfe is a 53 year old female here today for a check up on her medical problems. Chief Complaint Patient presents with: Blood Pressure: has been elevated 170/100 on average HPI Jacky Wolfe is a 53 year old female. She is an established patient of Perez Rooney MD. Here today for concerns of high blood pressure. Recently she had a blood pressure check at work and it was high. She admits to having more stress at work, in pain too (worker's comp). had some health issues. With this she has been increasing her alcohol use some. Prior elevated blood pressures in the past. In the past she was on propranolol and HCTZ. She did have labs with work. We do not have a copy today. No chest pain, chest tightness or shortness of breath. Her medications were reviewed today and her list is now up to date. Medications Current Outpatient Medications Medication Sig loratadine (CLARITIN) 10 mg tablet Take 1 tablet by mouth once daily. cyclobenzaprine (FLEXERIL) 10 mg tablet Take 1 tablet by mouth daily at bedtime. topiramate (TOPAMAX) 25 mg tablet buPROPion XL (WELLBUTRIN XL) 300 mg 24 hr tablet Take 1 tablet by mouth once daily. esomeprazole (NEXIUM) 40 mg capsule Take 1 capsule by mouth daily before breakfast. famotidine (PEPCID) 40 mg tablet Take 1 tablet by mouth once daily. DULoxetine (CYMBALTA) 60 mg capsule Take 1 capsule by mouth once daily. fluticasone (FLONASE) 50 mcg/actuation nasal spray Use 1 [place] in each nostril once daily. Lactobacill 46-B.animal-inulin (PROBIOTIC-10, WITH INULIN,) 10 billion cell -100 mg cap Take 400 mg by mouth once daily. collagen, hydrolysate, bovine, (COLLAGEN, HYDR, BOVINE,, BULK,) 100 % powd 1 Scoop twice daily. Cholecalciferol, Vitamin D3, 125 mcg (5,000 unit) cap Take 1 capsule by mouth once daily. losartan (COZAAR) 25 mg tablet Take 1 tablet by mouth once daily. Blood Pressure Monitor (BLOOD PRESSURE KIT) 1 Each once daily. No current facility-administered medications for this visit. ALLERGIES Allergen Reactions Atorvastatin Unknown Imitrex [Sumatripta* Intolerance blood pressure elevation Morphine Vomiting severe vomiting Penicillins Rash Amfniuw-Gqv-Axl Red* GI Upset Sumatriptan Other: See Comments ACTIVE PROBLEM LIST Depressive Disorder - 08/05/2023 Fatigue - 08/05/2023 Hemorrhoids - 08/05/2023 History of Spinal Surgery - 08/05/2023 History of Hysterectomy - 08/05/2023 Numbness and Tingling Sensation of Skin - 08/05/2023 Fibromyalgia - 09/23/2022 Obesity, Class II, Bmi 35-39.9 - 09/08/2022 Hiatal Hernia - 09/08/2022 Hypothyroidism - 09/08/2022 Hyperlipidemia - 02/09/2009 11.2.1 Cervicogenic headache [ M99] [784.0] - 11/16/2008 Migraine With Aura - 11/16/2008 Mild Episode of Recurrent Major Depressive Disorder (Hcc) - 01/19/2007 Esophageal Reflux - 10/05/2006 Allergic Rhinitis - 10/05/2006 Degeneration of Lumbar Or Lumbosacral Intervertebral Disc - 03/12/2004 Social History Tobacco Use Smoking status: Never Smokeless tobacco: Never Vaping Use Vaping Use: Never used Substance Use Topics Alcohol use: Yes Comment: occassionally Drug use: No Review of Systems Respiratory: Negative. Cardiovascular: Negative. OBJECTIVE BP 146/88 Pulse 69 Wt 215 lb (97.5kg) SpO2 99% Physical Exam Vitals and nursing note reviewed. Constitutional: General: She is awake. She is not in acute distress. Appearance: Normal appearance. She is well-developed and well-groomed. She is not ill-appearing, toxic-appearing or diaphoretic. HENT: Head: Normocephalic. Right Ear: External ear normal. Left Ear: External ear normal. Nose: Nose normal. Eyes: General: Vision grossly intact. Conjunctiva/sclera: Conjunctivae normal. Pupils: Pupils are equal, round, and reactive to light. Neck: Vascular: No JVD. Trachea: Trachea normal. Cardiovascular: Rate and Rhythm: Normal rate and regular rhythm. Pulses: Normal pulses. Heart sounds: Normal heart sounds. No murmur heard. Pulmonary: Effort: Pulmonary effort is normal. No accessory muscle usage, prolonged expiration or respiratory distress. Breath sounds: Normal breath sounds. Musculoskeletal: Cervical back: Neck supple. Skin: General: Skin is warm and dry. Capillary Refill: Capillary refill takes less than 2 seconds. Neurological: General: No focal deficit present. Mental Status: She is alert and oriented to person, place, and time. Mental status is at baseline. Psychiatric: Attention and Perception: Attention (more content not included)... Normal [facility] [id number] 12-24-2023 ECG01 Ventricular Rate : 6 1 BPM Atrial Rate : 61 BPM P-R Interval : 118 ms QRS Duration : 86 ms Q-T Interval : 424 ms QTC Calculation(Bazett) : 426 ms Calculated P [place] : 8 degrees Calculated R [place] : 34 degrees Calculated T [place] : 17 degrees NORMAL SINUS RHYTHM NORMAL ECG Confirmed by MD SALINAS GREGORY () on 12/27/2023 8:42:54 AM NAME : JACKY WOLFE PID : [id number] : 1970 Gender : Female Race : ORD : Procedure Date : Dec 24 2023 13:56:40 Edit Date : Dec 27 2023 08:42:54 Diagnosis: NORMAL SINUS RHYTHM NORMAL ECG Confirmed by MD SALINAS GREGORY () on 12/27/2023 8:42:54 AM Test Reason : Location : 185 : [facility] Overread By : MD SALINAS GREGORY Edited By : MD SALINAS GREGORY Referred By : THAD VASQUES Acquired by : Ela [facility] MRI SHOULDER W/O CONTRAST [place] 11-05-2023 MRI SHOULDER W/O CONTRAST RIGHT ORIGINAL EXAMINATION: MRI OF THE RIGHT SHOULDER WITHOUT CONTRAST 11/05/2023 1:58 pm TECHNIQUE: Multiplanar multisequence MRI of the right shoulder was performed without the administration of intravenous contrast. COMPARISON: None. HISTORY: ORDERING SYSTEM PROVIDED HISTORY: Reason for Exam: STRAIN RIGHT SHOULDER; right anterolateral shoulder pain for about 1 month status post lifting strain FINDINGS: ROTATOR CUFF: There is moderate grade articular surface partial tearing of the superior to middle pre insertional subscapularis fibers with superimposed tendinosis. No other significant rotator cuff abnormality is seen minimal low-grade partial-thickness articular surface tearing of the infraspinatus is questioned. The teres minor and infraspinatus are intact. No significant muscle atrophy or edema. BICEPS TENDON: There is moderate intrasubstance signal in the intra-articular and extra-articular long biceps tendon consistent with intrasubstance tearing. No partial or full-thickness tear. There is moderate fluid around the tendon. There is medial subluxation of the intracapsular tendon with respect to the bicipital groove. LABRUM: There is thickening and increased intrasubstance signal in the superior labrum consistent with degeneration. No obvious high-grade labral tear. Glenohumeral ligaments are intact. GLENOHUMERAL JOINT: Physiologic amount of joint fluid. No high-grade articular cartilage loss. Small sub insertional cysts within the greater tuberosity. Normal alignment. AC JOINT AND ACROMIOCLAVICULAR ARCH: No significant acromial downsloping or subacromial spur. Mild degenerative changes including joint space loss and small marginal osteophytes.. Intact acromioclavicular and coracoclavicular ligaments. Trace subacromial bursal fluid possibly representing bursitis. No significant subdeltoid bursitis. BONE MARROW: No evidence of fracture. Within the humeral metaphysis there is a somewhat lobulated T2 hyperintense/T1 hypointense lesion measuring approximately 1.4 x 1.2 x 1.8 cm (AP x TR x CC), which has the appearance of an enchondroma. There is no perilesional edema or cortical destruction. Otherwise, normal marrow signal. OUTLET SPACES: Normal MRI appearance of the quadrilateral space. No significant narrowing of the supraspinatus outlet. IMPRESSION: At least moderate grade partial thickness tearing of the subscapularis tendon low-grade articular surface tearing of infraspinatus tendon Medial subluxation of the long biceps tendon with intrasubstance tearing. Degeneration of the superior labrum, no high-grade labral tear is seen. Trace subacromial bursal fluid could represent bursitis. 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 Correlate with radiographs. MRI cannot be histologically specific and cannot predict biological behavior of lesions. This lesion however appears to be nonaggressive. I have personally reviewed the images of this examination and agree with the resident's findings and interpretation. Interpreted by: Carrington Orta MD Preliminary Report By: Emiliano Cruz Electronically signed By Carrington Orta MD Dictated Date: 11/05/2023 2:01:19 PM Prelim Date: 11/05/2023 5:21:31 PM Sign Date: 11/05/2023 5:21:31 PM Ordering Provider: DELLA HASSAN [facility] ([place]) Adriana 10-06-2023 CNPN Telephone ([facility]) JACKY WOLFE ([id number]) 1970 F Date Time Provider Department 10/06/23 [facility] During your visit today, we recorded the following information about you: Sofi Moses Gin 10/06/2023 8:53 AM Signed Patient was given the [facility] phone # to schedule in their [place] office. She will call and schedule. CHEKO Types of orders made on 10/05/2023: Medications, Referral Order Date:10/05/2023 Ordering User:COURTNEY GUZMÁN [[id number]] Encounter Provider:Courtney Guzmán APRN.OVIDIO [[id number]] Author thomas Provider: Courtney Guzmán APRN.CNP [[id number]] Department:[facility][[id number]] Order Specific Information Order: [facility] [Custom: [id number]] Order #: [id number]: 1 Priority: Routine Class: Internal Referral Associated Diagnoses M54.32 Left sided sciatica [facility] Epic access? -> Yes Priority: Routine Cla ss: Internal Referral Associated Diagnoses M54.32 Left sided sciatica [facility] Epic access? -> Yes Allergies As of Date: 10/06/2023 Noted Allergy Reaction ATORVASTATIN 10/19/2019 16 - Unknown IMITREX (SUMATRIPTAN SUCCINATE) 10/05/2006 5 - Intolerance Comments: blood pressure elevation MORPHINE 01/04/2007 11 - Vomiting Comments: severe vomiting PENICILLINS 08/20/2005 2 - Rash BQMBEZL-JJU-LYH REDUCTASE INHIBIT*09/08/2022 8 - GI Upset SUMATRIPTAN 06/29/2016 14 - Other: See Comments Date Reviewed: 10/05/2023 Reviewed by: Nancy Rinaldi LPN - Fully Assessed Prescriptions as of 10/06/2023 - predniSONE (DELTASONE) 10 mg tablet Take 4 tabs daily for 3 days, then 2 tabs daily for 3 days, then 1 tab daily for 3 days with food. - cyclobenzaprine (FLEXERIL) 10 mg tablet Take 1 tablet by mouth daily at bedtime. - topiramate (TOPAMAX) 25 mg tablet - buPROPion XL (WELLBUTRIN XL) 300 mg 24 hr tablet Take 1 tablet by mouth once daily. - esomeprazole (NEXIUM) 40 mg capsule Take 1 capsule by mouth daily before breakfast. - famotidine (PEPCID) 40 mg tablet Take 1 tablet by mouth once daily. - DULoxetine (CYMBALTA) 60 mg capsule Take 1 capsule by mouth once daily. - loratadine (CLARITIN) 10 mg tablet Take 1 tablet by mouth once daily. - fluticasone (FLONASE) 50 mcg/actuation nasal spray Use 1 [place] in each nostril once daily. - Lactobacill 46-B.animal-inulin (PROBIOTIC-10, WITH INULIN,) 10 billion cell -100 mg cap Take 400 mg by mouth once daily. - collagen, hydrolysate, bovine, (COLLAGEN, HYDR, BOVINE,, BULK,) 100 % powd 1 Scoop twice daily. - Cholecalciferol, Vitamin D3, 125 mcg (5,000 unit) cap Take 1 capsule by mouth once daily. Problem List As Of Date 10/06/2023 Noted Resolved LUMB/LUMBOSAC DISC DEGEN [M51.37] 03/12/2004 ESOPHAGEAL REFLUX [K21.9] 10/05/2006 Allergic rhinitis [J30.9] 10/05/2006 Mild episode of recurrent major depressive diso*01/19/2007 Pain in limb [M79.609] 08/12/2007 09/08/2022 Migraine without aura [G43.009] 10/27/2007 02/16/2023 1.5.1 Chronic migraine [346.71] [G43.719] 11/16/2008 09/08/2022 1.5.2 Status migrainosis [346.73] [G43.711] 11/16/2008 09/08/2022 8.2 Medication overuse headache (MOH) [339.3] [*11/16/2008 09/08/2022 11.2.1 Cervicogenic headache [ M99] [784.0] [R*11/16/2008 Migraine with aura [G43.109] 11/16/2008 Hyperlipidemia [E78.5] 02/09/2009 Obesity, Class II, BMI 35-39.9 [E66.9] 09/08/2022 Hiatal hernia [K44.9] 09/08/2022 Hypothyroidism [E03.9] 09/08/2022 Fibromyalgia [M79.7] 09/23/2022 Depressive disorder [F32.A] 08/05/2023 Fatigue [R53.83] 08/05/2023 Hemorrhoids [K64.9] 08/05/2023 History of spinal surgery [Z98.890] 08/05/2023 History of hysterectomy [Z90.710] 08/05/2023 Numbness and tingling sensation of skin [R20.0,*08/05/2023 Encounter Status:Closed by SOFI MOSES on 10/06/23 [facility] [place] 10-05-2023 CNOV Office Visit (UCWSTR ) JACKY WOLFE ([id number]) 1970 F Date Time Provider Department 10/05/23 7:15 AM COURTNEY GUZMÁN WSTR During your visit today, we recorded the following information about you: Temperature Pulse Respiration Blood pressure 98.4 degrees 65/minute 18/minute 156/87 Weight 98.4 kg Courtney Guzmán APRN.CNP 10/05/2023 7:37 AM Signed ASSESSMENT/PLAN: 1. Left sided sciatica - ICD9: 724.3, ICD10: M54.32 - Ice for localized tenderness - Prednisone burst- see orders - Muscle relaxant- see orders - Patient given instructions use of medications as ordered, intermittent rest, back care exercise program, and do not take ibuprofen while on the prednisone. You may take tylenol if needed. - PREDNISONE 10 MG TABLET - CYCLOBENZAPRINE 10 MG TABLET - [facility]- Call to schedule. - Follow-up with your PCP in 3-5 days if symptoms have not improved or sooner if symptoms worsen - Discussed red flags and need for immediate medical evaluation if any occur. - Discussed supportive care treatment with fluids, rest and analgesia. - Discussed expected course of illness Courtney Guzmán APRN.[facility]: Your exam shows you have sciatica, a condition most often seen in patients with disc disease of the lower back. Sciatica causes pain to radiate from the lower back or buttock area down the leg. It results from pressure on nerve roots coming out of the spine when a disc deteriorates and pushes to one side. Often there is a history of back problems. In most cases sciatica improves greatly with conservative treatment. Most patients with it are completely better after 2-4 weeks of supportive care. Bed rest reduces the disc pressure greatly; sitting is the worst position since the pressure on the disc is over 5 times greater than it is while lying down. You should avoid bending, lifting, and all other activities which make the problem worse. After the pain improves, you may continue with normal activity, taking brief periods for bed rest throughout the day until you are back to normal. Aspirin, ibuprofen, or other anti-inflammatory drugs are often used to help control pain. Muscle relaxants may help by relieving spasm and providing mild sedation. Cold therapy and massage may also give significant relief. Spinal manipulation is not recommended because it can increase the degree of disc protrusion. Surgery is reserved for patients that do not improve with conservative treatment, or who have signs of severe nerve root pressure. You should see your doctor for follow up care as recommended. A program for back injury rehabilitation with stretching and strengthening exercises is an important part of management. Please call your doctor, a back specialist, or the emergency room right away if you notice increased pain, weakness, or numbness in your legs, or if you have any difficulty with bladder or bowel control. Courtney Guzmán, SAIRA.INSURANCE RISK MANAGER 10/05/2023 7:46 AM Signed Subjective Musculoskeletal Problem Pertinent negatives include no chills, fever or rash. Jacky Wolfe is a 53 year old female who presents with left lower back pain that radiates to her hip and buttock and left leg for the past 2 days. She denies injury. She has had 2 previous back surgeries for herniated disc at L4S1 area. She was working in her garden 2 days ago and was pulling posts. She rates her pain 9/10. She has been taking ibuprofen for pain at home. Review of Systems Constitutional: Negative for chills and fever. Respiratory: Negative. Cardiovascular: Negative. Musculoskeletal: Positive for back pain and joint pain. Negative for falls. Skin: Negative for itching and rash. BP 156/87 Pulse 65 Temp 36.9 ?C (98.4 ?F) Resp 18 Wt 98.4 kg (217 lb) SpO2 100% BMI 35.56 kg/m? PAST MEDICAL HISTORY Diagnosis Date Adjustment disorder with depressed mood Esophageal reflux Hiatal hernia 2021 Low back pain Migraines PAST SURGICAL HISTORY Procedure Laterality Date PAST SURGICAL HISTORY OF 02/04/2004 REMOVAL VSP L5 TLIF PAST SURGICAL HISTORY OF Bilateral plantar fasciotomy VAGINAL HYSTERECTOMY UTERUS 250 GM/< Hysterectomy, vaginal ALLERGIES Atorvastatin, Imitrex [Sumatriptan Succinate], Morphine, Penicillins, Wqixggn-Pba-Lnz Reductase Inhibitors, and Sumatriptan MEDICATIONS topiramate (TOPAMAX) 25 mg tablet buPROPion XL (WELLBUTRIN XL) 300 mg 24 hr tablet Take 1 tablet by mouth once daily. esomeprazole (NEXIUM) 40 mg capsule Take 1 capsule by mouth daily before breakfast. famotidine (PEPCID) 40 mg tablet Take 1 tablet by mouth once daily. DULoxetine (CYMBALTA) 60 mg capsule Take 1 capsule by mouth once daily. loratadine (CLARITIN) 10 mg tablet Take 1 tablet by mouth once daily. fluticasone (FLONASE) 50 mcg/actuation nasal spray Use (more content not included)... Normal [facility] CNOVon 08-05-2023 CNOV Office Visit (INTMWS ) JACKY WOLFE ([id number]) 1970 F Date Time Provider Department 08/05/23 3:00 PM KERRI MARVIN INTMWS During your visit today, we recorded the following information about you: Pulse Blood pressure Weight Height 62/minute 144/84 100.7 kg 1.664 m Kerri Marvin APRN.RESIDENT CARE ASSOCIATE 08/05/2023 4:04 PM Signed SUBJECTIVE: Hepatitis B Vaccine(1 of 3 - 3-dose series) Never done BP Controlled (<130/80) Never done Colorectal Cancer Screening Never done Shingrix Vaccine(1 of 2) Never done Influenza Vaccine(1) due on 04/30/2023 Covid-19 Vaccine( season) due on 04/30/2023 Mammogram Screening due on 10/12/2023 HPI Jacky Wolfe is a 53 year old female. PMH significant for ACTIVE PROBLEM LIST Degeneration of Lumbar Or Lumbosacral Intervertebral Disc Esophageal Reflux Allergic Rhinitis Mild Episode of Recurrent Major Depressive Disorder (Hcc) 11.2.1 Cervicogenic headache [ M99] [784.0] Migraine With Aura Hyperlipidemia Obesity, Class II, Bmi 35-39.9 Hiatal Hernia Hypothyroidism Fibromyalgia She was last seen by Thad Vasques CNP April 21, 2023. Noted that she had stopped taking HCTZ and Topamax due to GI upset. Noted that she started taking Cymbalta which she was finding helpful. Today notes she has resumed Topamax for headache, seems to be helping with headaches. Hypothyroidism. TSH (mIU/L) Date Value 09/08/2022 3.780 ) GERD: wthout current complaint. Depression: mood is stable on duloxetine. She notes sinus congestion and drainage, some sinus pressure. Afebrile no other upper respiratory complaints. No sick contacts. Notes she has chronic sinus congestion and drainage. Using antihistamine and nasal steroid. Review of Systems Constitutional: Negative. HENT: Positive for rhinorrhea and sinus pressure. Gastrointestinal: Negative. Neurological: Negative. Psychiatric/Behavioral: Negative. Objective BP 144/84 Pulse 62 Ht 166.4 cm (5' 5.5 ) Wt 100.7 kg (222 lb) SpO2 98% BMI 36.38 kg/m? Physical Exam Vitals and nursing note reviewed. Constitutional: Appearance: Normal appearance. HENT: Head: Normocephalic and atraumatic. Right Ear: Tympanic membrane and ear canal normal. Left Ear: Tympanic membrane and ear canal normal. Nose: Mucosal edema present. Right Sinus: Maxillary sinus tenderness present. Left Sinus: Maxillary sinus tenderness present. Mouth/Throat: Lips: [place]. Mouth: Mucous membranes are moist. Pharynx: Oropharynx is clear. Eyes: Conjunctiva/sclera: Conjunctivae normal. Cardiovascular: Rate and Rhythm: Normal rate and regular rhythm. Heart sounds: Normal heart sounds. Pulmonary: Effort: Pulmonary effort is normal. Breath sounds: Normal breath sounds. Abdominal: General: Bowel sounds are normal. Palpations: Abdomen is soft. Skin: General: Skin is warm and dry. Neurological: General: No focal deficit present. Mental Status: She is alert and oriented to person, place, and time. ALLERGIES Allergen Reactions Atorvastatin Unknown Imitrex [Sumatripta* Intolerance blood pressure elevation Morphine Vomiting severe vomiting Penicillins Rash Mzkcjxk-Psz-Spl Red* GI Upset Sumatriptan Other: See Comments Medications buPROPion XL (WELLBUTRIN XL) 300 mg 24 hr tablet Take 1 tablet by mouth once daily. esomeprazole (NEXIUM) 40 mg capsule Take 1 capsule by mouth daily before breakfast. famotidine (PEPCID) 40 mg tablet Take 1 tablet by mouth once daily. DULoxetine (CYMBALTA) 60 mg capsule Take 1 capsule by mouth once daily. loratadine (CLARITIN) 10 mg tablet Take 1 tablet by mouth once daily. fluticasone (FLONASE) 50 mcg/actuation nasal spray Use 1 [place] in each nostril once daily. Lactobacill 46-B.animal-inulin (PROBIOTIC-10, WITH INULIN,) 10 billion cell -100 mg cap Take 400 mg by mouth once daily. collagen, hydrolysate, bovine, (COLLAGEN, HYDR, BOVINE,, BULK,) 100 % powd 1 Scoop twice daily. Cholecalciferol, Vitamin D3, 125 mcg (5,000 unit) cap Take 1 capsule by mouth once daily. PAST MEDICAL HISTORY Diagnosis Date Adjustment disorder with depressed mood Esophageal reflux Hiatal hernia 2021 Low back pain Migraines Social History Tobacco Use Smoking status: Never Smokeless tobacco: Never Vaping Use Vaping Use: Never used Substance Use Topics Alcohol use: Yes Comment: occassionally Drug use: No ASSESSMENT/PLAN: 1. Primary hypertension - ICD9: 401.9, ICD10: I10 (primary diagnosis) Suboptimal control, upper limits of normal and above of late, states she is not feeling too well today. Will bring back in 3 months for recheck. If remains above target add amlodipine 2.5 mg - Encouraged sodium restriction, DASH or Mediterranean diet - Recommend regular aerobic exercise - COMP METABOLIC PANEL - CBC + DIFF 2. Screening for colon cancer - ICD9: V76.51, ICD10: Z (more content not included)... Normal [facility] LIPID PANEL (EXTERNAL)on Cholesterol [Mass/Vol] 291 mg/dL Abnormal 0 - 200 MG/DL [facility] HDC-L 63 mg/dL Abnormal 41 mg/dL [facility] LDL Chol, calculated 156 MG/DL Abnormal 130 MG/DL [facility] Triglyceride [Mass/Vol] 360 mg/dL Abnormal 149 mg/dL [facility] ALAN DIAG W CRISS RIGHTon 03-2 [facility] ALAN SCREENINGon 10-12-2022 [facility] Vital Signs Date Time Vital Sign Value Performing Clinician Hilary sherman 05-23-2024 15:11-0400 Diastolic blood pressure 86 mm[Hg] Thad Vasques APRN.CNP Work Phone: [facility] 05-23-2024 15:11-0400 Systolic blood pressure 154 mm[Hg] Thad Vasques APRN.CNP Work Phone: [facility] 05-23-2024 15:09-0400 Body mass index (BMI) [Ratio] 36.09 kg/m2 Thad Caprice METAL FENCE ERECTOR.INSURANCE RISK MANAGER Work Phone: [facility] 05-23-2024 15:09-0400 Body weight 99.9 kg Thad Caprice METAL FENCE ERECTOR.INSURANCE RISK MANAGER Work Phone: [facility] 05-23-2024 15:09-0400 Heart rate 67 /min Thad Caprice METAL FENCE ERECTOR.INSURANCE RISK MANAGER Work Phone: [facility] 05-23-2024 15:09-0400 SaO2% (BldA) [Mass fraction] 99 % Thad Caprice METAL FENCE ERECTOR.INSURANCE RISK MANAGER Work Phone: [facility] 01-14-2024 09:55-0400 Body mass index (BMI) [Ratio] 35.89 kg/m2 Thad Caprice METAL FENCE ERECTOR.INSURANCE RISK MANAGER Work Phone: [facility] 01-14-2024 09:55-0400 Body weight 99.34 kg Thad Caprice METAL FENCE ERECTOR.INSURANCE RISK MANAGER Work Phone: [facility] 01-14-2024 09:55-0400 Diastolic blood pressure 80 mm[Hg] Thad Caprice METAL FENCE ERECTOR.INSURANCE RISK MANAGER Work Phone: [facility] 01-14-2024 09:55-0400 Heart rate 68 /min Thad Caprice METAL FENCE ERECTOR.INSURANCE RISK MANAGER Work Phone: [facility] 01-14-2024 09:55-0400 SaO2% (BldA) [Mass fraction] 99 % Thad Caprice METAL FENCE ERECTOR.INSURANCE RISK MANAGER Work Phone: [facility] 01-14-2024 09:55-0400 Systolic blood pressure 120 mm[Hg] Thad Caprice METAL FENCE ERECTOR.INSURANCE RISK MANAGER Work Phone: [facility] 12-24-2023 13:24-0400 Diastolic blood pressure 88 mm[Hg] Thad Caprice METAL FENCE ERECTOR.INSURANCE RISK MANAGER Work Phone: [facility] 12-24-2023 13:24-0400 Systolic blood pressure 146 mm[Hg] Thad Caprice METAL FENCE ERECTOR.INSURANCE RISK MANAGER Work Phone: [facility] 12-24-2023 13:22-0400 Body mass index (BMI) [Ratio] 35.23 kg/m2 Thad Caprice METAL FENCE ERECTOR.INSURANCE RISK MANAGER Work Phone: [facility] 12-24-2023 13:22-0400 Body weight 97.52 kg Thad Caprice METAL FENCE ERECTOR.INSURANCE RISK MANAGER Work Phone: [facility] 12-24-2023 13:22-0400 Heart rate 69 /min Thad Caprice METAL FENCE ERECTOR.INSURANCE RISK MANAGER Work Phone: [facility] 12-24-2023 13:22-0400 SaO2% (BldA) [Mass fraction] 99 % Thad Caprice METAL FENCE ERECTOR.INSURANCE RISK MANAGER Work Phone: [facility] 10-05-2023 07:20-0500 Body temperature 98.4 [degF] Courtney Praisler-Wood METAL FENCE ERECTOR.INSURANCE RISK MANAGER Work Phone: [facility] 10-05-2023 07:20-0500 Body weight 98.43 kg Courtney Praisler-Wood METAL FENCE ERECTOR.INSURANCE RISK MANAGER Work Phone: [facility] 10-05-2023 07:20-0500 Diastolic blood pressure 87 mm[Hg] Courtney Praisler-Wood METAL FENCE ERECTOR.INSURANCE RISK MANAGER Work Phone: [facility] 10-05-2023 07:20-0500 Heart rate 65 /min Courtney Praisler-Wood METAL FENCE ERECTOR.INSURANCE RISK MANAGER Work Phone: [facility] 10-05-2023 07:20-0500 Respiratory rate 18 /min Courtney Praisler-Wood METAL FENCE ERECTOR.INSURANCE RISK MANAGER Work Phone: [facility] 10-05-2023 07:20-0500 SaO2% (BldA) [Mass fraction] 100 % Courtney Praisler-Wood METAL FENCE ERECTOR.INSURANCE RISK MANAGER Work Phone: [facility] 10-05-2023 07:20-0500 Systolic blood pressure 156 mm[Hg] Courtney Praisler-Wood METAL FENCE ERECTOR.INSURANCE RISK MANAGER Work Phone: [facility] 08-05-2023 15:08-0500 Body height 166.4 cm Kerri Marvin METAL FENCE ERECTOR.RESIDENT CARE ASSOCIATE Work Phone: [facility] 08-05-2023 15:08-0500 Body weight 100.7 kg Kerri Marvin METAL FENCE ERECTOR.RESIDENT CARE ASSOCIATE Work Phone: [facility] 08-05-2023 15:08-0500 Diastolic blood pressure 84 mm[Hg] Kerri Marvin METAL FENCE ERECTOR.RESIDENT CARE ASSOCIATE Work Phone: [facility] 08-05-2023 15:08-0500 Heart rate 62 /min Kerri Marvin METAL FENCE ERECTOR.RESIDENT CARE ASSOCIATE Work Phone: [facility] 08-05-2023 15:08-0500 SaO2% (BldA) [Mass fraction] 98 % Kerri Marvin METAL FENCE ERECTOR.RESIDENT CARE ASSOCIATE Work Phone: [facility] 08-05-2023 15:08-0500 Systolic blood pressure 144 mm[Hg] Kerri Marvin METAL FENCE ERECTOR.RESIDENT CARE ASSOCIATE Work Phone: [facility] 04-21-2023 14:57-0400 Body weight 100.7 kg Thad Caprice METAL FENCE ERECTOR.INSURANCE RISK MANAGER Work Phone: [facility] 04-21-2023 14:57-0400 Diastolic blood pressure 84 mm[Hg] Thad Caprice METAL FENCE ERECTOR.INSURANCE RISK MANAGER Work Phone: [facility] 04-21-2023 14:57-0400 Heart rate 66 /min Thad Caprice METAL FENCE ERECTOR.INSURANCE RISK MANAGER Work Phone: [facility] 04-21-2023 14:57-0400 SaO2% (BldA) [Mass fraction] 98 % Thad Caprice METAL FENCE ERECTOR.INSURANCE RISK MANAGER Work Phone: [facility] 04-21-2023 14:57-0400 Systolic blood pressure 132 mm[Hg] Thad Caprice METAL FENCE ERECTOR.INSURANCE RISK MANAGER Work Phone: [facility] 02-16-2023 11:25-0400 Diastolic blood pressure 72 mm[Hg] Thad Caprice METAL FENCE ERECTOR.INSURANCE RISK MANAGER Work Phone: [facility] 02-16-2023 11:25-0400 Systolic blood pressure 168 mm[Hg] Thad Caprice METAL FENCE ERECTOR.INSURANCE RISK MANAGER Work Phone: [facility] 02-16-2023 11:24-0400 Body weight 98.43 kg Thad Caprice METAL FENCE ERECTOR.INSURANCE RISK MANAGER Work Phone: [facility] 02-16-2023 11:24-0400 Heart rate 65 /min Thad Caprice METAL FENCE ERECTOR.INSURANCE RISK MANAGER Work Phone: [facility] 02-16-2023 11:24-0400 SaO2% (BldA) [Mass fraction] 98 % Thad Caprice METAL FENCE ERECTOR.INSURANCE RISK MANAGER Work Phone: [facility] 09-23-2022 14:33-0500 Body height 166.4 cm Thad Caprice METAL FENCE ERECTOR.INSURANCE RISK MANAGER Work Phone: [facility] 09-23-2022 14:33-0500 Body temperature 98.2 [degF] Thad Caprice METAL FENCE ERECTOR.INSURANCE RISK MANAGER Work Phone: [facility] 09-23-2022 14:33-0500 Body weight 103.47 kg Thad Caprice METAL FENCE ERECTOR.INSURANCE RISK MANAGER Work Phone: [facility] 09-23-2022 14:33-0500 Diastolic blood pressure 82 mm[Hg] Thad Caprice METAL FENCE ERECTOR.INSURANCE RISK MANAGER Work Phone: [facility] 09-23-2022 14:33-0500 Heart rate 71 /min Thad Caprice METAL FENCE ERECTOR.INSURANCE RISK MANAGER Work Phone: [facility] 09-23-2022 14:33-0500 Respiratory rate 16 /min Thad Caprice METAL FENCE ERECTOR.INSURANCE RISK MANAGER Work Phone: [facility] 09-23-2022 14:33-0500 SaO2% (BldA) [Mass fraction] 98 % Thad Caprice METAL FENCE ERECTOR.INSURANCE RISK MANAGER Work Phone: [facility] 09-23-2022 14:33-0500 Systolic blood pressure 136 mm[Hg] Thad Caprice METAL FENCE ERECTOR.INSURANCE RISK MANAGER Work Phone: [facility] 09-08-2022 13:59-0500 Body temperature 98.29 [degF] Thad Caprice METAL FENCE ERECTOR.INSURANCE RISK MANAGER Work Phone: [facility] 09-08-2022 13:59-0500 Body weight 101.15 kg Thad Caprice METAL FENCE ERECTOR.INSURANCE RISK MANAGER Work Phone: [facility] 09-08-2022 13:59-0500 Diastolic blood pressure 84 mm[Hg] Thad Caprice METAL FENCE ERECTOR.INSURANCE RISK MANAGER Work Phone: [facility] 09-08-2022 13:59-0500 Heart rate 75 /min Thad Caprice METAL FENCE ERECTOR.INSURANCE RISK MANAGER Work Phone: [facility] 09-08-2022 13:59-0500 Systolic blood pressure 118 mm[Hg] Thad Caprice METAL FENCE ERECTOR.INSURANCE RISK MANAGER Work Phone: [facility] 09-08-2022 10:06-0500 Body height 165.1 cm Jesus Velasco MD Work Phone: [facility] 09-08-2022 10:06-0500 Body temperature 98.29 [degF] Jesus Velasco MD Work Phone: [facility] 09-08-2022 10:06-0500 Body weight 101.24 kg Jesus Velasco MD Work Phone: [facility] 09-08-2022 10:06-0500 Diastolic blood pressure 84 mm[Hg] Jesus Velasco MD Work Phone: [facility] 09-08-2022 10:06-0500 Heart rate 75 /min Jesus Velasco MD Work Phone: [facility] 09-08-2022 10:06-0500 SaO2% (BldA) [Mass fraction] 96 % Jesus Velasco MD Work Phone: [facility] 09-08-2022 10:06-0500 Systolic blood pressure 118 mm[Hg] Jesus Velasco MD Work Phone: [facility] Encounters Encounter Date Encounter Type Care Provider Facility Start: 06-05-2024 End: 06-05-2024 Refill Thad Caprice METAL FENCE ERECTOR.INSURANCE RISK MANAGER Work Phone: [facility] Comment on above: Refill Request Start: 06-02-2024 End: 06-02-2024 ambulatory JEROME ALVARES Facility:[facility] Start: 06-02-2024 End: 06-02-2024 Patient encounter procedure Jerome Alvares DO Work Phone: [facility] Comment on above: Biceps rupture, prox imal, right, initial encounter (Primary Dx); Right arm pain; Arm paresthesia, right Start: 05-23-2024 End: 05-23-2024 Patient encounter procedure Thad Caprice METAL FENCE ERECTOR.INSURANCE RISK MANAGER Work Phone: [facility] [place] Comment on above: Right arm pain (Prim umberto Dx); Primary hypertension; Left sided sciatica Start: 05-23-2024 End: 05-23-2024 ambulatory [facility] Facility:[facility] Start: 03-15-2024 Refill Kerri Marvin METAL FENCE ERECTOR.RESIDENT CARE ASSOCIATE Work Phone: [facility] Comment on above: Refill Request Start: 01-27-2024 Telephone encounter Imani lazaro PA-C Work Phone: Orthopaedics Comment on above: Appointment Start: 01-22-2024 Refill Thad Caprice METAL FENCE ERECTOR.INSURANCE RISK MANAGER Work Phone: [facility] [place] Comment on above: Refill Request Start: 01-14-2024 End: 01-14-2024 [facility] Facility:[facility] Start: 01-14-2024 End: 01-14-2024 Patient encounter procedure Thad Caprice METAL FENCE ERECTOR.INSURANCE RISK MANAGER Work Phone: [facility] [place] Comment on above: Primary hypertension (Primary Dx); Right arm pain; Seasonal allergic rhinitis, unspecified trigger Start: 12-24-2023 End: 12-24-2023 [facility] Facility:[facility] Start: 12-24-2023 End: 12-24-2023 Patient encounter procedure Thad Caprice METAL FENCE ERECTOR.INSURANCE RISK MANAGER Work Phone: [facility] [place] Comment on above: Primary hypertension (Primary Dx); Stress and adjustment reaction Start: 12-22-2023 Refill Thad Caprice METAL FENCE ERECTOR.INSURANCE RISK MANAGER Work Phone: [facility] [place] Comment on above: Refill Request Start: 11-05-2023 End: 11-06-2023 ambulatory DELLA HASSAN MD Facility:[facility] Start: 10-06-2023 Telephone encounter Other (His t) Work Phone: [facility] Start: 10-05-2023 End: 10-05-2023 Patient encounter procedure Courtney Guzmán APRN.INSURANCE RISK MANAGER Work Phone: [facility] Comment on above: Left sided sciatica (Primary Dx) Start: 10-05-2023 End: 10-05-2023 ambulatory PEREZ ROONEY Facility:[facility] Start: 08-10-2023 Refill Kerri Marvin APRN.RESIDENT CARE ASSOCIATE Work Phone: [facility] [place] Comment on above: Refill Request Start: 08-05-2023 End: 08-05-2023 ambulatory PEREZ ROONEY Facility:[facility] Start: 08-05-2023 End: 08-05-2023 Office outpatient visit 25 minutes Kerri Marvin APRN.RESIDENT CARE ASSOCIATE Work Phone: [facility] [place] Comment on above: Primary hypertension (Primary Dx); Screening for colon cancer; Encounter for screening mammogram for breast cancer; Migraine with aura and without status migrainosus, not intractable; Hypothyroidism, unspecified type; Hyperlipidemia, unspecified hyperlipidemia type; Sinus pressure; Encounter for immunization Start: 07-07-2023 Refill Thad Vasques APRN.INSURANCE RISK MANAGER Work Phone: [facility] Comment on above: Refill Request Start: 07-02-2023 Refill Thad Caprice METAL FENCE ERECTOR.INSURANCE RISK MANAGER Work Phone: [facility] [place] Comment on above: Refill Request Start: 06-02-2023 Telephone encounter Perez bacon MD Work Phone: [facility] [place] Comment on above: Insurance Authorizat ion Start: 04-21-2023 End: 04-21-2023 Patient encounter procedure Thad Vasques APRN.INSURANCE RISK MANAGER Work Phone: [facility] [place] Comment on above: Primary hypertension (Primary Dx); Fibromyalgia; Migraine with aura and without status migrainosus, not intractable Start: 03-17-2023 Refill Perez coley MD Work Phone: [facility] [place] Comment on above: Refill Request Start: 02-16-2023 End: 02-16-2023 Patient encounter procedure Thad Vasques APRN.INSURANCE RISK MANAGER Work Phone: [facility] [place] Comment on above: Intractable migraine with aura with status migrainosus (Primary Dx); Hyperlipidemia, unspecified hyperlipidemia type; Elevated blood pressure reading in office without diagnosis of hypertension Start: 02-15-2023 Refill Thad Vegar SAIRA.INSURANCE RISK MANAGER Work Phone: [facility] [place] Comment on above: Refill Request Start: 02-13-2023 Refill Thad Vasques APRN.INSURANCE RISK MANAGER Work Phone: [facility] [place] Comment on above: Refill Request Start: 02-13-2023 Refill Thad Vasques APRN.INSURANCE RISK MANAGER Work Phone: [facility] [place] Comment on above: Refill Request Start: 11-24-2022 End: 11-24-2022 Subsequent hospital visit by physician Diagnostic Mammo [facility] Mammogram Start: 10-23-2022 Documentation procedure Mammog gricelda Coordinator [facility] Start: 10-23-2022 Letter encounter Mammography Coordinator [facility] Department Start: 10-19-2022 ambulatory Thad Vasques APRN.INSURANCE RISK MANAGER Work Phone: [facility] [place] Comment on above: Results Start: 10-19-2022 E-mail encounter fro m caregiver Thad Vasques APRN.INSURANCE RISK MANAGER Work Phone: [facility] Start: 10-13-2022 Documentation procedure Mammog gricelda Coordinator [facility] Start: 10-13-2022 Letter encounter Mammography Coordinator [facility] Department Start: 10-12-2022 End: 10-12-2022 Subsequent hospital visit by physician Screen Mammo [facility] Mammogram Comment on above: Encounter for screen ing mammogram for breast cancer [Z12.31] Start: 09-23-2022 End: 09-23-2022 Patient encounter procedure Thad Vasques APRN.INSURANCE RISK MANAGER Work Phone: Internal Medicine [place] Comment on above: Wellness examination (Primary Dx); Gastroesophageal reflux disease without esophagitis; Mild episode of recurrent major depressive disorder (HCC); Hyperlipidemia, unspecified hyperlipidemia type; Fibromyalgia; Encounter for screening mammogram for breast cancer; Screening for colon cancer; Obesity, Class II, BMI 35-39.9 Start: 09-23-2022 End: 09-23-2022 Patient encounter status Thad Vasques APRN.INSURANCE RISK MANAGER Work Phone: [facility] [place] Start: 09-08-2022 End: 09-08-2022 Patient encounter procedure Jesus Velasco MD Work Phone: General Surgery Comment on above: Gastroesophageal ref lux disease without esophagitis (Primary Dx) Gastroesophageal ref lux disease without esophagitis (Primary Dx); Hiatal hernia; Obesity, Class II, BMI 35-39.9; Hypothyroidism, unspecified type; Mild episode of recurrent major depressive disorder (HCC); Seasonal allergic rhinitis, unspecified trigger; Encounter for therapeutic drug monitoring; Screening for lipid disorders Start: 05-22-2021 End: 05-22-2021 [facility] Start: 04-19-[address] [facility] Procedures Date Procedure Procedure Detail Performing Clinician Start: 12-24-2023 Ecg routine ecg w/least 12 lds i&r only [facility] Provider Start: 08-05-2023 H/O: hysterectomy History of hysterectomy Kerri GunterRESIDENT CARE ASSOCIATE Work Phone: Start: 02-11-2023 Lipid panel [facility] Provider Start: 02-11-2023 Lipid 1996 panel - Serum or Plasma Perez Rooney MD Work Phone: Start: 11-24-2022 Digital breast tomosynthesis unilateral Thad Vasques APRN.INSURANCE RISK MANAGER Work Phone: Start: 10-12-2022 End: 10-12-2022 Mammography Thad Vasques APRN.CN P Work Phone: Plan of Treatment Date Care Activity Detail Author Start: [address] [facility] Start: 02-12-2028 Lipid 1996 panel - Serum or Plasma Lipid Screening [facility] Start: 02-12-2028 Lipid panel Lipid Screening [facility] Start: 02-12-2028 LIPID SCREEN LIPID SCREEN [facility] Start: 09-08-2027 LIPID SCREEN LIPID SCREEN [facility] Start: 09-08-2025 DIABETES SCREEN [facility] Start: 09-08-2025 Diabetes Screening Diabetes Screenin g [facility] Start: 05-23-2025 Annual PCP Team Collection Team Lead irvin Disease Visit Annual PCP Team Chronic Disease Visit [facility] Start: 01-13-2025 Annual PCP Team Collection Team Lead irvin Disease Visit Annual PCP Team Chronic Disease Visit [facility] Start: 12-23-2024 Annual PCP Team Collection Team Lead irvin Disease Visit Annual PCP Team Chronic Disease Visit [facility] Start: 08-05-2024 Hepatitis B Vaccine (1 of 3 - 19+ 3-dose series) Hepatitis B Vaccine (1 of 3 - 19+ 3-dose series) [facility] Comment on above: Postponed from 03/18 (Declined at this time) Start: 08-05-2024 Hepatitis B Vaccine (1 of 3 - 3-dose series) Hepatitis B Vaccine (1 of 3 - 3-dose series) [facility] Comment on above: Postponed from 03/18 (Declined at this time) Start: 07-05-2024 End: 07-05-2024 Patient encounter procedure 07/05/2024 3:40 PM EST Office Visit [facility] [place] [address] [place] [id number] Thad Vasques APRN.INSURANCE RISK MANAGER [address] [place], [place] [phone] 6 week follow up [facility] [place] Comment on above: 6 week follow up Start: 06-02-2024 End: 06-02-2024 Patient encounter procedure 06/02/2024 3:00 PM EDT Office Visit [facility] [address] [place], [place] [phone] Jerome Alvares V DO [address] [place], [place] [phone] Right arm pain [M79.601] [facility] [place] Comment on above: Right arm pain [M79. 601] Start: 04-30-2024 Covid-19 Vaccine ( season) Covid-[address] Vacc[address] () [facility] Start: 04-30-2024 Influenza vaccination Influenza Vacc ine (#1) [facility] Start: 04-21-2024 ANNUAL PCP TEAM REGIONAL GUIDE IVRIN DISEASE VISIT ANNUAL PCP TEAM CHRONIC DISEASE VISIT [facility] Start: 04-17-2024 End: 04-17-2024 Patient encounter procedure 04/17/2024 9:00 AM EDT Office Visit Internal Medicine [place] [address] [place], [place] [phone] Thad Vasques APRN.INSURANCE RISK MANAGER [address] [place] [id number] 3 month follow up Internal Medicine [place] Comment on above: 3 month follow up Start: 03-23-2024 ANNUAL PCP TEAM REGIONAL GUIDE IRVIN DISEASE VISIT ANNUAL PCP TEAM CHRONIC DISEASE VISIT [facility] Start: 02-17-2024 ANNUAL PCP TEAM REGIONAL GUIDE IRVIN DISEASE VISIT ANNUAL PCP TEAM CHRONIC DISEASE VISIT [facility] Start: 02-08-2024 End: 02-08-2024 Patient encounter procedure 02/08/2024 11:00 AM EDT Office Visit Orthopaedics [address] [address] Imani Higginbotham PA-C [address] [place] [address] Right arm pain [M79.601] Orthopaedics Comment on above: Right arm pain [M79. 601] Start: 01-14-2024 End: 01-14-2024 Patient encounter procedure 01/14/2024 10:00 AM EDT Office Visit Internal Medicine [place] [address] [place], [place] [phone] Thad Vasques APRN.INSURANCE RISK MANAGER [address] [place], [place] [phone] 4 week follow up Internal Medicine [place] Comment on above: 4 week follow up Start: 12-24-2023 End: 12-24-2023 Patient encounter procedure 12/24/2023 1:40 PM EDT Office Visit Internal Medicine [place] [address] [place] [address] Thad Vasques APRN.INSURANCE RISK MANAGER [address] [facility] [place] [address] discuss elevated blood preasures Internal [facility] [place] Comment on above: discuss elevated blo od preasures Start: 10-12-[address] [facility] Start: 10-12-2023 Screening for malign ant neoplasm of breast Mammogram Screening [facility] Start: 10-04-2023 Hzv zoster vacc recombinant adjuvanted im njx ZOSTER VACCINE, RECOMBINANT (SHINGRIX) Immunization/Injection Routine Encounter for immunization Expected: 10/04/2023 [facility] Work Phone: Comment on above: Expected: 10/04/2023 Start: 09-23-2023 ANNUAL PCP TEAM REGIONAL GUIDE IRVIN DISEASE VISIT ANNUAL PCP TEAM CHRONIC DISEASE VISIT [facility] Start: 09-23-2023 COVID-19 VACCINE (4 - Booster for Pfizer series) COVID-19 VACCINE (4 - Booster for Pfizer series) [facility] Comment on above: Postponed from 11/14 (Declined at this time) Start: 09-23-2023 COVID-19 VACCINE (4 - Pfizer series) COVID-19 VACCINE (4 - Pfizer series) [facility] Comment on above: Postponed from 11/14 (Declined at this time) Start: 09-08-2023 ANNUAL PCP TEAM REGIONAL GUIDE IRVIN DISEASE VISIT ANNUAL PCP TEAM CHRONIC DISEASE VISIT [facility] Start: 08-05-2023 End: 11-04-2023 CBC W Auto Differential panel - Blood CBC + DIFF Lab Routine Primary hypertension Migraine with aura and without status migrainosus, not intractable Expected: 08/05/2023, Expires: 11/04/2023 [facility] Work Phone: Comment on above: Expected: 08/05/2023 , Expires: 11/04/2023 Start: 08-05-2023 End: 11-04-2023 Comprehensive metabolic 2000 panel - Serum or Plasma COMP METABOLIC PANEL Lab Routine Primary hypertension Migraine with aura and without status migrainosus, not intractable Hypothyroidism, unspecified type Expected: 08/05/2023, Expires: 11/04/2023 [facility] Work Phone: Comment on above: Expected: 08/05/2023 , Expires: 11/04/2023 Start: 08-05-2023 End: 11-04-2023 Lipid 1996 panel - Serum or Plasma LIPID PANEL BASIC Lab Routine Hyperlipidemia, unspecified hyperlipidemia type Expected: 08/05/2023, Expires: 11/04/2023 [facility] Work Phone: Comment on above: Expected: 08/05/2023 , Expires: 11/04/2023 Start: 08-05-2023 End: 11-04-2023 Thyrotropin [Units/volume] in Serum or Plasma TSH BLD Lab Routine Hypothyroidism, unspecified type Expected: 08/05/2023, Expires: 11/04/2023 [facility] Work Phone: Comment on above: Expected: 08/05/2023 , Expires: 11/04/2023 Start: 04-30-2023 Covid-19 Vaccine ( season) Covid-19 Vaccine ( season) [facility] Start: 04-30-2023 Influenza vaccination [facility] Start: 02-26-2023 Influenza vaccination INFLUENZA (#1) [facility] Comment on above: Postponed from 04/30 (Declined at this time) Start: 09-08-2022 End: 11-08-2022 CBC W Auto Differential panel - Blood [facility] Work Phone: Comment on above: Expected: 09/08/2022 , Expires: 11/08/2022 Start: 09-08-2022 End: 11-08-2022 Comprehensive metabolic 2000 panel - Serum or Plasma [facility] Work Phone: Comment on above: Expected: 09/08/2022 , Expires: 11/08/2022 Start: 09-08-2022 End: 11-08-2022 Hemoglobin A1c in Blood [facility] Work Phone: Comment on above: Expected: 09/08/2022 , Expires: 11/08/2022 Start: 09-08-2022 End: 11-08-2022 LIPID PANEL, NONFASTING [facility] Work Phone: Comment on above: Expected: 09/08/2022 , Expires: 11/08/2022 Start: 09-08-2022 End: 11-08-2022 Thyrotropin [Units/volume] in Serum or Plasma [facility] Work Phone: Comment on above: Expected: 09/08/2022 , Expires: 11/08/2022 Start: 04-30-2022 Influenza vaccination INFLUENZA (#1) [facility] Start: 11-14-2021 COVID-19 VACCINE (5 - Booster for Pfizer series) COVID-19 VACCINE (5 - Booster for Pfizer series) [facility] Start: 10-02-2019 DIABETES SCREEN DIABETES SCREEN [facility] Start: 2019 SHINGRIX VACCINE (1 of 2) SHINGRIX VACCINE (1 of 2) [facility] Start: 2014 COLOGUARD (FIT-DNA) COLOGUARD (FIT-D NA) [facility] Start: [address] [facility] Start: 2014 COLORECTAL CANCER SCREENING COLORECTAL CANCER SCREENING [facility] Start: [address] COLONOGRAPHY [facility] Start: 2014 FECAL OCCULT BLOOD FECAL OCCULT BLOO D [facility] Start: 2014 LIPID SCREEN LIPID SCREEN [facility] Start: 2014 Screening for malign ant neoplasm of colon [facility] Start: 2014 SIGMOIDOSCOPY SIGMOIDOSCOPY [facility] Start: [address] [facility] Start: 1987 Anxiety Screening Anxiety Screening [facility] Start: 1987 BP CONTROLLED (<130/80) BP CONTROLLE D (<130/80) [facility] Start: 1969 HEPATITIS B (1 of 3 - 3-dose series) HEPATITIS B (1 of 3 - 3-dose series) [facility] Start: 1969 Hepatitis B Vaccine (1 of 3 - 3-dose series) Hepatitis B Vaccine (1 of 3 - 3-dose series) [facility] End: 11-18-2023 Diagnostic mammography computer-aided detcj uni ALAN DIAGNOSTIC RT Radiology Routine Abnormal mammogram 1 Occurrences starting 10/19/2022 until 11/18/2023 [facility] Work Phone: Comment on above: 1 Occurrences starti ng 10/19/2022 until 11/18/2023 ECG COMPLETE [facility] Work Phone: Comment on above: Ordered: 12/24/2023 End: 06-02-2025 EMG(NEURO/NI) EMG(NEURO/NI) EMG Routine Right arm pain Arm paresthesia, right 1 Occurrences starting 06/02/2024 until 06/02/2025 [facility] Work Phone: Comment on above: 1 Occurrences starti ng 06/02/2024 until 06/02/2025 End: 10-23-2023 ALAN SCREENING ALAN SCREENING Radiology Routine Encounter for screening mammogram for breast cancer 1 Occurrences starting 09/23/2022 until 10/23/2023 [facility] Work Phone: Comment on above: 1 Occurrences starti ng 09/23/2022 until 10/23/2023 End: 09-03-2024 ALAN SCREENING ALAN SCREENING Radiology Routine Encounter for screening mammogram for breast cancer 1 Occurrences starting 08/05/2023 until 09/03/2024 [facility] Work Phone: Comment on above: 1 Occurrences starti ng 08/05/2023 until 09/03/2024 PFIZER-BIONTECH COVID-19 VACCINE ( SEASON) AGE 12+ YR PFIZER-BIONTECH COVID-19 VACCINE ( SEASON) AGE 12+ YR Immunization/Injection Routine Encounter for immunization 1 Occurrences starting 08/05/2023 [facility] Work Phone: Comment on above: 1 Occurrences starti ng 08/05/2023 End: 11-18-2023 Us breast uni real time with image limited US BREAST LTD RT Radiology Routine Abnormal mammogram 1 Occurrences starting 10/19/2022 until 11/18/2023 [facility] Work Phone: Comment on above: 1 Occurrences starti ng 10/19/2022 until 11/18/2023 [facility] Immunizations Immunization Date Immunization Notes Care Provider Soo so 06-16-2023 influenza, injectabl e, quadrivalent, contains preservative Kerri Marvin APRN.RESIDENT CARE ASSOCIATE Work Phone: [facility] 06-16-2023 influenza virus vaccine, unspecified formulation Kerri Marvin METAL FENCE ERECTOR.RESIDENT CARE ASSOCIATE Work Phone: [facility] 09-19-2021 influenza, injectabl e, quadrivalent, preservative free Jesus Velasco MD Work Phone: [facility] Work Phone: 09-19-2021 influenza virus vaccine, unspecified formulation Perez Rooney MD Work Phone: [facility] 12-16-2020 COVID-19 original vaccine, age 12+ yr, monovalent ([employer] - PURPLE TOP) Jesus Velasco MD Work Phone: [facility] Work Phone: 2020 tetanus toxoid, redu meg diphtheria toxoid, and acellular pertussis vaccine, adsorbed Jesus Velasco MD Work Phone: [facility] Work Phone: 04-23-2017 influenza, injectabl e, quadrivalent, contains preservative Jesus Velasco MD Work Phone: [facility] Work Phone: Payers Date Payer Category Payer Unknown [id number] 2023 Unknown [id number] 2022 Unknown [id number] 2022 Private Health Insurance [id number] 1969 Unknown [id number] Worker's Compensation Social History Date Type Detail Facility Start: 09-08-2022 Tobacco smoking stat us NHIS Never smoked tobacco [facility] Start: 09-08-2022 Tobacco use and exposure Smoke less tobacco non-user [facility] Start: 09-08-2022 End: 06-02-2024 Alcohol intake Current drinker of alcohol (finding) [facility] Start: 1970 Sex Assigned At Female [facility] Start: 02-16-2023 End: 03-19-2023 History of Social function [facility] Start: 02-16-2023 End: 03-19-[address] [facility] Adult Depression Screening Assessment 1 [facility] Start: 09-02-2022 Gender identity Identifies as female gender (finding) [facility] Start: 09-02-2022 Sexual orientation Heterosexual (ruddy quigley) [facility] Has the [employer], or [employer] threatened to shut off services in your home in past 12Mo No [facility] Are you now , , , , never or living with a partner? [facility] How often to you hav e a drink containing alcohol? 4 or more times a week [facility] How many standard dr inks containing alcohol do you have on a typical day? [address] [facility] How often do you hav e 6 or more drinks on 1 occasion? Weekly [facility] Do you feel stress - tense, restless, nervous, or anxious, or unable to sleep at night because your mind is troubled all the time - these days [OSQ] Rather much [facility] (I/We) worried wheth er (my/our) food would run out before (I/we) got money to buy more. Never true [facility] Clinical Notes 11-16-2008 to 06-05-2024 Telephone Encounter - Gabriella Velazquez LPN - 06/05/2024 10:17 AM EDTTelephone Encounter - Gabriella Velazquez LPN - 06/05/2024 10:17 AM Jerome Rogers V, DO - 06/02/2024 3:44 PM EDTPatient Instructions Note Date & Type Note Facility 06-05-2024 Telephone encounter Note Prescription Refill Information The patient has been identified by name and date of : Yes Caregiver verified no other encounters exist for this prescription request: Yes Caregiver confirmed with patient/requestor that no other refills are due, in the near future, with this provider at this time: Yes The last office visit in the department: 05/23/24 Does the patient have a future office visit with this provider/department: Yes 07/05/24 Requested Prescriptions Pending Prescriptions Disp Refills DULoxetine (CYMBALTA) 60 mg capsule 90 capsule 3 Sig: Take 1 capsule by mouth once daily. Gabriella Velazquez LPN June 05, 2024 10:[address] [facility] 06-05-2024 Miscellaneous Notes Prescription Refill Information The patient has been identified by name and date of : Yes Caregiver verified no other encounters exist for this prescription request: Yes Caregiver confirmed with patient/requestor that no other refills are due, in the near future, with this provider at this time: Yes The last office visit in the department: 05/23/24 Does the patient have a future office visit with this provider/department: Yes 07/05/24 Requested Prescriptions Pending Prescriptions Disp Refills DULoxetine (CYMBALTA) 60 mg capsule 90 capsule 3 Sig: Take 1 capsule by mouth once daily. Gabriella Velazquez LPN June 05, 2024 10:17 AM documented in this encounter [facility] 06-02-2024 Note HNO ID: [id number] Author: JEROME ALVARES, DO Service: ? Author Type: Physician Type: Progress Notes Filed: 06/02/2024 15:46 Note Text: SERVICE DATE: June 02, 2024 PCP: Perez Rooney MD Subjective Patient ID: Nugyen is a 54 year old female. Chief Complaint: Patient presents with: right biceps pain REF: [place] PAIN EVALUATION 06/02/2024 1510 Pain Level: 10 Pain Location: Arm-Upper Right Description: Shooting;Burning;Numbness Duration Amount of Time: 8 Duration Units: Months Frequency: Continuous Intervention/Comfort measure: Medication HPI 54-year-old female [id number] presents with right arm and shoulder pain. She reports this pain has been present approximately 8 months. He was initially evaluated for Worker's Comp. injury by occupational health but was determined that this was not workers related so she has not been seeking treatment until recently. She has a deformity of the right bicep since the injury. She describes numbness and tingling that go down into the hand with activity and at night. She is noticing a loss of handgrip strength on the right side. Review of Systems ACTIVE PROBLEM LIST Degeneration of Lumbar Or Lumbosacral Intervertebral Disc Esophageal Reflux Allergic Rhinitis Mild Episode of Recurrent Major Depressive Disorder (Hcc) 11.2.1 Cervicogenic headache [ M99] [784.0] Migraine With Aura Hyperlipidemia Obesity, Class II, Bmi 35-39.9 Hiatal Hernia Hypothyroidism Fibromyalgia Depressive Disorder Fatigue Hemorrhoids History of Spinal Surgery History of Hysterectomy Numbness and Tingling Sensation of Skin PAST MEDICAL HISTORY Diagnosis Date Adjustment disorder with depressed mood Esophageal reflux Hiatal hernia 2021 Low back pain Migraines PAST SURGICAL HISTORY Procedure Laterality Date PAST SURGICAL HISTORY OF 02/04/2004 REMOVAL VSP L5 TLIF PAST SURGICAL HISTORY OF Bilateral plantar fasciotomy VAGINAL HYSTERECTOMY UTERUS 250 GM/< Hysterectomy, vaginal FAMILY HISTORY Problem Relation Age of Onset Thyroid Mother Heart Mother Psychiatry Mother depression Hypertension Mother Ischemic Heart Disease Mother Lipids Mother Diabetes Mother Headache Mother Heart Father Psychiatry Father depression Hypertension Father Lipids Father Diabetes Father Headache Father Psychiatry Maternal Grandmother depression Psychiatry Daughter depression Social History Tobacco Use Smoking status: Never Smokeless tobacco: Never Vaping Use Vaping status: Never Used Substance Use Topics Alcohol use: Yes Comment: occassionally Drug use: No ALLERGIES Allergen Reactions Atorvastatin Unknown Imitrex [Sumatripta* Intolerance blood pressure elevation Morphine Vomiting severe vomiting Penicillins Rash Zmzrwwi-Gto-Vgl Red* GI Upset Sumatriptan Other: See Comments MEDICATIONS: cyclobenzaprine (FLEXERIL) 10 mg tablet Take 1 tablet by mouth two times a day as needed for muscle spasm or pain. meloxicam (MOBIC) 15 mg tablet Take 1 tablet by mouth once daily. With food. losartan (COZAAR) 25 mg tablet Take 1 tablet by mouth once daily. esomeprazole (NEXIUM) 40 mg capsule Take 1 capsule by mouth daily before breakfast. famotidine (PEPCID) 40 mg tablet Take 1 tablet by mouth once daily. fluticasone (FLONASE) 50 mcg/actuation nasal spray Use 1 [place] in each nostril once daily. loratadine (CLARITIN) 10 mg tablet Take 1 tablet by mouth once daily. DULoxetine (CYMBALTA) 60 mg capsule Take 1 capsule by mouth once daily. Lactobacill 46-B.animal-inulin (PROBIOTIC-10, WITH INULIN,) 10 billion cell -100 mg cap Take 400 mg by mouth once daily. collagen, hydrolysate, bovine, (COLLAGEN, HYDR, BOVINE,, BULK,) 100 % powd 1 Scoop twice daily. Cholecalciferol, Vitamin D3, 125 mcg (5,000 unit) cap Take 1 capsule by mouth once daily. Blood Pressure Monitor (BLOOD PRESSURE KIT) 1 Each once daily. Allergies, medications, past surgical history, family history and past medical history were reviewed per this encounter. Objective Ortho Exam Patient is pleasant cooperative with exam in no acute distress. Dilation of the right shoulder shows pain with palpation in the anterior lateral shoulder. There is weakness with drop arm test. Handgrip is 4 out of 5 on the right compared to the left. There is deformity of the right bicep consistent with a proximal bicep muscle rupture. Assessment/Plan ASSESSMENT Diagnosis (S46.211A) Biceps rupture, proximal, right, initial encounter (primary encounter diagnosis) (M79.601) Right arm pain Plan: CONSULT TO ORTHOPAEDICS, EMG(NEURO/NI) (R20.2) Arm paresthesia, right Plan: EMG(NEURO/NI) Office Visit on 06/02/24 CONSULT TO ORTHOPAEDICS EMG(NEURO/NI) PLAN Obtain MRI results from [facility] EMG ordered to evaluate nerve injury based on symptom pattern Continue with meloxicam and Flexeril as needed consider us (more content not included)... [facility] 06-02-2024 History of Present illness Narrative SERVICE DATE: June 02, 2024 PCP: Perez Rooney MD Subjective Patient ID: Nguyen is a 54 year old female. Chief Complaint: Patient presents with: right biceps pain REF: [place] PAIN EVALUATION 06/02/2024 1510 Pain Level: 10 Pain Location: Arm-Upper Right Description: Shooting;Burning;Numbness Duration Amount of Time: 8 Duration Units: Months Frequency: Continuous Intervention/Comfort measure: Medication HPI 54-year-old female ahdzy-wyxx-mpcwyaej presents with right arm and shoulder pain. She reports this pain has been present approximately 8 months. He was initially evaluated for Worker's Comp. injury by occupational health but was determined that this was not workers related so she has not been seeking treatment until recently. She has a deformity of the right bicep since the injury. She describes numbness and tingling that go down into the hand with activity and at night. She is noticing a loss of handgrip strength on the right side. Review of Systems ACTIVE PROBLEM LIST Degeneration of Lumbar Or Lumbosacral Intervertebral Disc Esophageal Reflux Allergic Rhinitis Mild Episode of Recurrent Major Depressive Disorder (Hcc) 11.2.1 Cervicogenic headache [ M99] [784.0] Migraine With Aura Hyperlipidemia Obesity, Class II, Bmi 35-39.9 Hiatal Hernia Hypothyroidism Fibromyalgia Depressive Disorder Fatigue Hemorrhoids History of Spinal Surgery History of Hysterectomy Numbness and Tingling Sensation of Skin PAST MEDICAL HISTORY Diagnosis Date Adjustment disorder with depressed mood Esophageal reflux Hiatal hernia 2021 Low back pain Migraines PAST SURGICAL HISTORY Procedure Laterality Date PAST SURGICAL HISTORY OF 02/04/2004 REMOVAL VSP L5 TLIF PAST SURGICAL HISTORY OF Bilateral plantar fasciotomy VAGINAL HYSTERECTOMY UTERUS 250 GM/< Hysterectomy, vaginal FAMILY HISTORY Problem Relation Age of Onset Thyroid Mother Heart Mother Psychiatry Mother depression Hypertension Mother Ischemic Heart Disease Mother Lipids Mother Diabetes Mother Headache Mother Heart Father Psychiatry Father depression Hypertension Father Lipids Father Diabetes Father Headache Father Psychiatry Maternal Grandmother depression Psychiatry Daughter depression Social History Tobacco Use Smoking status: Never Smokeless tobacco: Never Vaping Use Vaping status: Never Used Substance Use Topics Alcohol use: Yes Comment: occassionally Drug use: No ALLERGIES Allergen Reactions Atorvastatin Unknown Imitrex [Sumatripta* Intolerance blood pressure elevation Morphine Vomiting severe vomiting Penicillins Rash Qwnqaen-Bom-Qsc Red* GI Upset Sumatriptan Other: See Comments MEDICATIONS: cyclobenzaprine (FLEXERIL) 10 mg tablet Take 1 tablet by mouth two times a day as needed for muscle spasm or pain. meloxicam (MOBIC) 15 mg tablet Take 1 tablet by mouth once daily. With food. losartan (COZAAR) 25 mg tablet Take 1 tablet by mouth once daily. esomeprazole (NEXIUM) 40 mg capsule Take 1 capsule by mouth daily before breakfast. famotidine (PEPCID) 40 mg tablet Take 1 tablet by mouth once daily. fluticasone (FLONASE) 50 mcg/actuation nasal spray Use 1 [place] in each nostril once daily. loratadine (CLARITIN) 10 mg tablet Take 1 tablet by mouth once daily. DULoxetine (CYMBALTA) 60 mg capsule Take 1 capsule by mouth once daily. Lactobacill 46-B.animal-inulin (PROBIOTIC-10, WITH INULIN,) 10 billion cell -100 mg cap Take 400 mg by mouth once daily. collagen, hydrolysate, bovine, (COLLAGEN, HYDR, BOVINE,, BULK,) 100 % powd 1 Scoop twice daily. Cholecalciferol, Vitamin D3, 125 mcg (5,000 unit) cap Take 1 capsule by mouth once daily. Blood Pressure Monitor (BLOOD PRESSURE KIT) 1 Each once daily. Allergies, medications, past surgical history, family history and past medical history were reviewed per this encounter. Objective Ortho Exam Patient is pleasant cooperative with exam in no acute distress. Dilation of the right shoulder shows pain with palpation in the anterior lateral shoulder. There is weakness with drop arm test. Handgrip is 4 out of 5 on the right compared to the left. There is deformity of the right bicep consistent with a proximal bicep muscle rupture. Assessment/Plan ASSESSMENT Diagnosis (S46.211A) Biceps rupture, proximal, right, initial encounter (primary encounter diagnosis) (M79.601) Right arm pain Plan: CONSULT TO ORTHOPAEDICS, EMG(NEURO/NI) (R20.2) Arm paresthesia, right Plan: EMG(NEURO/NI) Office Visit on 06/02/24 CONSULT TO ORTHOPAEDICS EMG(NEURO/NI) PLAN Obtain MRI results from [facility] EMG ordered to evaluate nerve injury based on symptom pattern Continue with meloxicam and Flexeril as needed consider using gabapentin in the future if pain persists particularly at night. FOLLOW-UP: No follow-ups on file. SIGNATURE: Jerome Alvares DO PATIENT NAME: Jacky Wolfe DATE: June 02, 2024 TIME: 3:44 PM AMB ROOMING INTAKE FLOWSHEET DATA Pain Pain Level: 10 Pain Location: Arm-Upper Right Description: Shooting, Burning, Numbness Duration Amount of Time: 8 Duration Units: Months Frequency: Continuous Intervention/Comfort measure: Medication Patient here today for right upper arm pain. States this was originally a [employer] claim, but they denied the claim. 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 She is not longer working at that employer. 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 She is right hand dominant. Had MRI at [facility] in October 2023. documented in this encounter [facility] 06-02-2024 Note HNO ID: [id number] Author: MAGNOLIA SAUCEDO MA Service: ? Author Type: Delivery Crew Member Type: Progress Notes Filed: 06/02/2024 15:46 Note Text: AMB ROOMING INTAKE FLOWSHEET DATA Pain Pain Level: 10 Pain Location: Arm-Upper Right Description: Shooting, Burning, Numbness Duration Amount of Time: 8 Duration Units: Months Frequency: Continuous Intervention/Comfort measure: Medication Patient here today for right upper arm pain. States this was originally a [employer] claim, but they denied the claim. 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 She is not longer working at that employer. 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 She is right hand dominant. Had MRI at [facility] in October 2023. [facility] 05-23-2024 Note HNO ID: [id number] Author: THAD VASQUES APRN.OVIDIO Service: ? Author Type: Nurse Practitioner Type: Progress Notes Filed: 05/23/2024 15:33 Note Text: SUBJECTIVE Jacky Wolfe is a 54 year old female here today for a check up on her medical problems. Chief Complaint Patient presents with: Recheck HPI Jacky Wolfe is a 54 year old female. She is an established patient of Perez Rooney MD. Here today for a routine follow up. Last seen 01/13. Here for follow up on blood pressure. Feels like it is elevated some right now because of arm pain. Right arm still giving her issues. Injury was in September. Bicep area. Can move it well but has a lot of muscle tightness and soreness. No weakness in the extremity. Occasional numbness or tingling at night when tight. Denied workers comp case. Was told in the past the bicep is torn. Did not follow up with ortho after referral. Her medications were reviewed today and her list is now up to date. Medications Current Outpatient Medications Medication Sig esomeprazole (NEXIUM) 40 mg capsule Take 1 capsule by mouth daily before breakfast. famotidine (PEPCID) 40 mg tablet Take 1 tablet by mouth once daily. fluticasone (FLONASE) 50 mcg/actuation nasal spray Use 1 [place] in each nostril once daily. loratadine (CLARITIN) 10 mg tablet Take 1 tablet by mouth once daily. DULoxetine (CYMBALTA) 60 mg capsule Take 1 capsule by mouth once daily. Lactobacill 46-B.animal-inulin (PROBIOTIC-10, WITH INULIN,) 10 billion cell -100 mg cap Take 400 mg by mouth once daily. collagen, hydrolysate, bovine, (COLLAGEN, HYDR, BOVINE,, BULK,) 100 % powd 1 Scoop twice daily. Cholecalciferol, Vitamin D3, 125 mcg (5,000 unit) cap Take 1 capsule by mouth once daily. cyclobenzaprine (FLEXERIL) 10 mg tablet Take 1 tablet by mouth two times a day as needed for muscle spasm or pain. meloxicam (MOBIC) 15 mg tablet Take 1 tablet by mouth once daily. With food. losartan (COZAAR) 25 mg tablet Take 1 tablet by mouth once daily. Blood Pressure Monitor (BLOOD PRESSURE KIT) 1 Each once daily. No current facility-administered medications for this visit. ALLERGIES Allergen Reactions Atorvastatin Unknown Imitrex [Sumatripta* Intolerance blood pressure elevation Morphine Vomiting severe vomiting Penicillins Rash Qacjdya-Lla-Gig Red* GI Upset Sumatriptan Other: See Comments ACTIVE PROBLEM LIST Depressive Disorder - 08/05/2023 Fatigue - 08/05/2023 Hemorrhoids - 08/05/2023 History of Spinal Surgery - 08/05/2023 History of Hysterectomy - 08/05/2023 Numbness and Tingling Sensation of Skin - 08/05/2023 Fibromyalgia - 09/23/2022 Obesity, Class II, Bmi 35-39.9 - 09/08/2022 Hiatal Hernia - 09/08/2022 Hypothyroidism - 09/08/2022 Hyperlipidemia - 02/09/2009 11.2.1 Cervicogenic headache [ M99] [784.0] - 11/16/2008 Migraine With Aura - 11/16/2008 Mild Episode of Recurrent Major Depressive Disorder (Hcc) - 01/19/2007 Esophageal Reflux - 10/05/2006 Allergic Rhinitis - 10/05/2006 Degeneration of Lumbar Or Lumbosacral Intervertebral Disc - 03/12/2004 Social History Tobacco Use Smoking status: Never Smokeless tobacco: Never Vaping Use Vaping status: Never Used Substance Use Topics Alcohol use: Yes Comment: occassionally Drug use: No Review of Systems Respiratory: Negative. Cardiovascular: Negative. Musculoskeletal: Positive for myalgias. OBJECTIVE BP 154/86 Pulse 67 Wt 220 lb 3.8 oz (99.9kg) SpO2 99% Physical Exam Vitals and nursing note reviewed. Constitutional: General: She is awake. She is not in acute distress. Appearance: Normal appearance. She is well-developed and well-groomed. She is not ill-appearing, toxic-appearing or diaphoretic. HENT: Head: Normocephalic. Right Ear: External ear normal. Left Ear: External ear normal. Nose: Nose normal. Eyes: General: Vision grossly intact. Conjunctiva/sclera: Conjunctivae normal. Pupils: Pupils are equal, round, and reactive to light. Neck: Vascular: No JVD. Trachea: Trachea normal. Cardiovascular: Rate and Rhythm: Normal rate and regular rhythm. Pulses: Normal pulses. Heart sounds: Normal heart sounds. No murmur heard. Pulmonary: Effort: Pulmonary effort is normal. No accessory muscle usage, prolonged expiration or respiratory distress. Breath sounds: Normal breath sounds. Musculoskeletal: Cervical back: Neck supple. Skin: General: Skin is warm and dry. Capillary Refill: Capillary refill takes less than 2 seconds. Neurological: General: No focal deficit present. Mental Status: She is alert and oriented to person, place, and time. Mental status is at baseline. Psychiatric: Attention and Perception: Attention and perception normal. Mood and Affect: Mood and affect normal. Speech: Speech normal. Behavior: Behavior normal. Behavior is cooperative. Thought Content: Thought content normal. Cognition and Memory: Cognition and memory n (more content not included)... [facility] 05[facility] History of Present illness Narrative SUBJECTIVE Jacky Wolfe is a 54 year old female here today for a check up on her medical problems. Chief Complaint Patient presents with: Recheck HPI Jacky Wolfe is a 54 year old female. She is an established patient of Perez Rooney MD. Here today for a routine follow up. Last seen 01/13. Here for follow up on blood pressure. Feels like it is elevated some right now because of arm pain. Right arm still giving her issues. Injury was in September. Bicep area. Can move it well but has a lot of muscle tightness and soreness. No weakness in the extremity. Occasional numbness or tingling at night when tight. Denied workers comp case. Was told in the past the bicep is torn. Did not follow up with ortho after referral. Her medications were reviewed today and her list is now up to date. Medications Current Outpatient Medications Medication Sig esomeprazole (NEXIUM) 40 mg capsule Take 1 capsule by mouth daily before breakfast. famotidine (PEPCID) 40 mg tablet Take 1 tablet by mouth once daily. fluticasone (FLONASE) 50 mcg/actuation nasal spray Use 1 [place] in each nostril once daily. loratadine (CLARITIN) 10 mg tablet Take 1 tablet by mouth once daily. DULoxetine (CYMBALTA) 60 mg capsule Take 1 capsule by mouth once daily. Lactobacill 46-B.animal-inulin (PROBIOTIC-10, WITH INULIN,) 10 billion cell -100 mg cap Take 400 mg by mouth once daily. collagen, hydrolysate, bovine, (COLLAGEN, HYDR, BOVINE,, BULK,) 100 % powd 1 Scoop twice daily. Cholecalciferol, Vitamin D3, 125 mcg (5,000 unit) cap Take 1 capsule by mouth once daily. cyclobenzaprine (FLEXERIL) 10 mg tablet Take 1 tablet by mouth two times a day as needed for muscle spasm or pain. meloxicam (MOBIC) 15 mg tablet Take 1 tablet by mouth once daily. With food. losartan (COZAAR) 25 mg tablet Take 1 tablet by mouth once daily. Blood Pressure Monitor (BLOOD PRESSURE KIT) 1 Each once daily. No current facility-administered medications for this visit. ALLERGIES Allergen Reactions Atorvastatin Unknown Imitrex [Sumatripta* Intolerance blood pressure elevation Morphine Vomiting severe vomiting Penicillins Rash Jirsdlf-Waf-Kcq Red* GI Upset Sumatriptan Other: See Comments ACTIVE PROBLEM LIST Depressive Disorder - 08/05/2023 Fatigue - 08/05/2023 Hemorrhoids - 08/05/2023 History of Spinal Surgery - 08/05/2023 History of Hysterectomy - 08/05/2023 Numbness and Tingling Sensation of Skin - 08/05/2023 Fibromyalgia - 09/23/2022 Obesity, Class II, Bmi 35-39.9 - 09/08/2022 Hiatal Hernia - 09/08/2022 Hypothyroidism - 09/08/2022 Hyperlipidemia - 02/09/2009 11.2.1 Cervicogenic headache [ M99] [784.0] - 11/16/2008 Migraine With Aura - 11/16/2008 Mild Episode of Recurrent Major Depressive Disorder (Hcc) - 01/19/2007 Esophageal Reflux - 10/05/2006 Allergic Rhinitis - 10/05/2006 Degeneration of Lumbar Or Lumbosacral Intervertebral Disc - 03/12/2004 Social History Tobacco Use Smoking status: Never Smokeless tobacco: Never Vaping Use Vaping status: Never Used Substance Use Topics Alcohol use: Yes Comment: occassionally Drug use: No Review of Systems Respiratory: Negative. Cardiovascular: Negative. Musculoskeletal: Positive for myalgias. OBJECTIVE BP 154/86 Pulse 67 Wt 220 lb 3.8 oz (99.9kg) SpO2 99% Physical Exam Vitals and nursing note reviewed. Constitutional: General: She is awake. She is not in acute distress. Appearance: Normal appearance. She is well-developed and well-groomed. She is not ill-appearing, toxic-appearing or diaphoretic. HENT: Head: Normocephalic. Right Ear: External ear normal. Left Ear: External ear normal. Nose: Nose normal. Eyes: General: Vision grossly intact. Conjunctiva/sclera: Conjunctivae normal. Pupils: Pupils are equal, round, and reactive to light. Neck: Vascular: No JVD. Trachea: Trachea normal. Cardiovascular: Rate and Rhythm: Normal rate and regular rhythm. Pulses: Normal pulses. Heart sounds: Normal heart sounds. No murmur heard. Pulmonary: Effort: Pulmonary effort is normal. No accessory muscle usage, prolonged expiration or respiratory distress. Breath sounds: Normal breath sounds. Musculoskeletal: Cervical back: Neck supple. Skin: General: Skin is warm and dry. Capillary Refill: Capillary refill takes less than 2 seconds. Neurological: General: No focal deficit present. Mental Status: She is alert and oriented to person, place, and time. Mental status is at baseline. Psychiatric: Attention and Perception: Attention and perception normal. Mood and Affect: Mood and affect normal. Speech: Speech normal. Behavior: Behavior normal. Behavior is cooperative. Thought Content: Thought content normal. Cognition and Memory: Cognition and memory normal. Judgment: Judgment normal. ASSESSMENT/PLAN: 1. Right arm pain - ICD9: 729.5, ICD10: M79.601 (primary diagnosis) Restart the muscle relaxer and NSAID. Follow up with ortho as previously advised. - CYCLOBENZAPRINE 10 MG TABLET - MELOXICAM 15 MG TABLET 2. Primary hypertension - ICD9: 401.9, ICD10: I10 - Worsening control, suspect pain to be a factor, work on controlling pain and recheck bp in 6 weeks, if still elevated then plan to increase losartan - Continue current medications - Recommend home blood pressure monitoring, to bring results to next visit - Encouraged sodium restriction, DASH or Mediterranean diet - Recommend regular aerobic exercise - LOSARTAN 25 MG TABLET 3. Left sided sciatica - ICD9: 724.3, ICD10: M54.32 - CYCLOBENZAPRINE 10 MG TABLET Portions of this note have been entered by ancillary staff. I have reviewed and when necessary edited, so that they are an adequate record of my encounter with this patient Please note that parts of this document were created using voice recognition software and therefore may contain grammatical errors. Patient verbalizes understanding of instructions from today's visit and in agreement with treatment plan. Questions answered. Agrees to call the office if questions, concerns of issues with acute symptoms not improving or if they worsen. See diagnoses and orders for additional plan(s). Allergies and medications were reviewed, list was updated, and refills given if needed. Past medical, surgical, social, and family history reviewed and updated as appropriate. Encouraged proper diet & exercise as well as compliance with taking medications. Age-appropriate health preventative measures were discussed. Return in about 6 weeks (around 07/04/2024) for recheck on blood pressure. Thad Vasques APRN-INSURANCE RISK MANAGER documented in this encounter [facility] 03-15-2024 Telephone encounter Note Prescription Refill Information The patient has been identified by name and date of : Yes Caregiver verified no other encounters exist for this prescription request: Yes Caregiver confirmed with patient/requestor that no other refills are due, in the near future, with this provider at this time: Yes The last office visit in the department: 01/14/2024 Does the patient have a future office visit with this provider/department: Yes, 04/17/2024 Requested Prescriptions Pending Prescriptions Disp Refills esomeprazole (NEXIUM) 40 mg capsule 90 capsule 2 Sig: Take 1 capsule by mouth daily before breakfast. famotidine (PEPCID) 40 mg tablet 90 tablet 2 Sig: Take 1 tablet by mouth once daily. BIRGIT Lafleur March 15, 2024 8:[address] [facility] 03-15-2024 Miscellaneous Notes Prescription Refill Information The patient has been identified by name and date of : Yes Caregiver verified no other encounters exist for this prescription request: Yes Caregiver confirmed with patient/requestor that no other refills are due, in the near future, with this provider at this time: Yes The last office visit in the department: 01/14/2024 Does the patient have a future office visit with this provider/department: Yes, 04/17/2024 Requested Prescriptions Pending Prescriptions Disp Refills esomeprazole (NEXIUM) 40 mg capsule 90 capsule 2 Sig: Take 1 capsule by mouth daily before breakfast. famotidine (PEPCID) 40 mg tablet 90 tablet 2 Sig: Take 1 tablet by mouth once daily. BIRGIT Lafleur March 15, 2024 8:10 AM documented in this encounter [facility] 01-27-2024 Telephone encounter Note Attempted to reach patient left message for patient to call office back. She is scheduled for an appointment on 02/08/2024 with Imani for right arm pain. Trying to determine clarify what part of her arm is bothering her. Antwan Cardona MA January 27, 2024 1:[address] [facility] 01-27-2024 Miscellaneous Notes Attempted to reach patient left message for patient to call office back. She is scheduled for an appointment on 02/08/2024 with Imani for right arm pain. Trying to determine clarify what part of her arm is bothering her. Antwan Cardona MA January 27, 2024 1:15 PM documented in this encounter [facility] 01-25-2024 Telephone encounter Note Pharmacy request denied. Patient needs to contact office for refills. Ladonna Fam MA [facility] 01-25-2024 Miscellaneous Notes Pharmacy request denied. Patient needs to contact office for refills. Ladonna Fam MA documented in this encounter [facility] 01-14-2024 Note HNO ID: [id number] Author: THAD VASQUES APRN.INSURANCE RISK MANAGER Service: ? Author Type: Nurse Practitioner Type: Progress Notes Filed: 01/14/2024 12:44 Note Text: SUBJECTIVE Jacky Wolfe is a 53 year old female here today for a check up on her medical problems. Chief Complaint Patient presents with: Recheck Shoulder Injury: right shoulder and upper arm Rash: requesting injection to treat poison on upper left thing and back of right leg HPI Jacky is a 53 year old female who presents for follow-up for hypertension. They are here today for a recheck of blood pressure. Blood pressure appears to be much improved. Denies any symptoms referable to elevated blood pressure. Specifically denies headache, chest pain, palpitations, dyspnea and peripheral edema. Tolerating medications well. She has continued to have issues with right arm pain, was working with worker's comp but case has been denied. Concerns of bruising to the right arm, pain, some weakness. Had an MRI that showed per patient rotator cuff tearing and bicep tearing. Her medications were reviewed today and her list is now up to date. Medications Current Outpatient Medications Medication Sig losartan (COZAAR) 25 mg tablet Take 1 tablet by mouth once daily. loratadine (CLARITIN) 10 mg tablet Take 1 tablet by mouth once daily. cyclobenzaprine (FLEXERIL) 10 mg tablet Take 1 tablet by mouth daily at bedtime. topiramate (TOPAMAX) 25 mg tablet buPROPion XL (WELLBUTRIN XL) 300 mg 24 hr tablet Take 1 tablet by mouth once daily. esomeprazole (NEXIUM) 40 mg capsule Take 1 capsule by mouth daily before breakfast. famotidine (PEPCID) 40 mg tablet Take 1 tablet by mouth once daily. DULoxetine (CYMBALTA) 60 mg capsule Take 1 capsule by mouth once daily. Lactobacill 46-B.animal-inulin (PROBIOTIC-10, WITH INULIN,) 10 billion cell -100 mg cap Take 400 mg by mouth once daily. collagen, hydrolysate, bovine, (COLLAGEN, HYDR, BOVINE,, BULK,) 100 % powd 1 Scoop twice daily. Cholecalciferol, Vitamin D3, 125 mcg (5,000 unit) cap Take 1 capsule by mouth once daily. fluticasone (FLONASE) 50 mcg/actuation nasal spray Use 1 [place] in each nostril once daily. predniSONE (DELTASONE) 20 mg tablet 1 tablet three times a day for 3 days, then 2 times a day for 3 days, the one daily for 3 days. Blood Pressure Monitor (BLOOD PRESSURE KIT) 1 Each once daily. No current facility-administered medications for this visit. ALLERGIES Allergen Reactions Atorvastatin Unknown Imitrex [Sumatripta* Intolerance blood pressure elevation Morphine Vomiting severe vomiting Penicillins Rash Ofkqvex-Rkv-Gaj Red* GI Upset Sumatriptan Other: See Comments ACTIVE PROBLEM LIST Depressive Disorder - 08/05/2023 Fatigue - 08/05/2023 Hemorrhoids - 08/05/2023 History of Spinal Surgery - 08/05/2023 History of Hysterectomy - 08/05/2023 Numbness and Tingling Sensation of Skin - 08/05/2023 Fibromyalgia - 09/23/2022 Obesity, Class II, Bmi 35-39.9 - 09/08/2022 Hiatal Hernia - 09/08/2022 Hypothyroidism - 09/08/2022 Hyperlipidemia - 02/09/2009 11.2.1 Cervicogenic headache [ M99] [784.0] - 11/16/2008 Migraine With Aura - 11/16/2008 Mild Episode of Recurrent Major Depressive Disorder (Hcc) - 01/19/2007 Esophageal Reflux - 10/05/2006 Allergic Rhinitis - 10/05/2006 Degeneration of Lumbar Or Lumbosacral Intervertebral Disc - 03/12/2004 Social History Tobacco Use Smoking status: Never Smokeless tobacco: Never Vaping Use Vaping Use: Never used Substance Use Topics Alcohol use: Yes Comment: occassionally Drug use: No Review of Systems Respiratory: Negative. Cardiovascular: Negative. Musculoskeletal: Positive for arthralgias and myalgias. OBJECTIVE BP 120/80 Pulse 68 Wt 219 lb (99.3kg) SpO2 99% Physical Exam Vitals and nursing note reviewed. Constitutional: General: She is awake. She is not in acute distress. Appearance: Normal appearance. She is well-developed and well-groomed. She is not ill-appearing, toxic-appearing or diaphoretic. HENT: Head: Normocephalic. Right Ear: External ear normal. Left Ear: External ear normal. Nose: Nose normal. Eyes: General: Vision grossly intact. Conjunctiva/sclera: Conjunctivae normal. Pupils: Pupils are equal, round, and reactive to light. Neck: Vascular: No JVD. Trachea: Trachea normal. Cardiovascular: Rate and Rhythm: Normal rate and regular rhythm. Pulses: Normal pulses. Heart sounds: Normal heart sounds. No murmur heard. Pulmonary: Effort: Pulmonary effort is normal. No accessory muscle usage, prolonged expiration or respiratory distress. Breath sounds: Normal breath sounds. Musculoskeletal: Right upper arm: Swelling and tenderness present. No lacerations. Cervical back: Neck supple. Comments: Right upper arm with large bruise present medially Skin: General: Skin is warm and dry. Capillary Refill: Capillary refill takes less than 2 seconds. Neuro (more content not included)... [place] [id number] History of Present illness Narrative SUBJECTIVE Jacky Wolfe is a 53 year old female here today for a check up on her medical problems. Chief Complaint Patient presents with: Recheck Shoulder Injury: right shoulder and upper arm Rash: requesting injection to treat poison on upper left thing and back of right leg HPI Jacky is a 53 year old female who presents for follow-up for hypertension. They are here today for a recheck of blood pressure. Blood pressure appears to be much improved. Denies any symptoms referable to elevated blood pressure. Specifically denies headache, chest pain, palpitations, dyspnea and peripheral edema. Tolerating medications well. She has continued to have issues with right arm pain, was working with worker's comp but case has been denied. Concerns of bruising to the right arm, pain, some weakness. Had an MRI that showed per patient rotator cuff tearing and bicep tearing. Her medications were reviewed today and her list is now up to date. Medications Current Outpatient Medications Medication Sig losartan (COZAAR) 25 mg tablet Take 1 tablet by mouth once daily. loratadine (CLARITIN) 10 mg tablet Take 1 tablet by mouth once daily. cyclobenzaprine (FLEXERIL) 10 mg tablet Take 1 tablet by mouth daily at bedtime. topiramate (TOPAMAX) 25 mg tablet buPROPion XL (WELLBUTRIN XL) 300 mg 24 hr tablet Take 1 tablet by mouth once daily. esomeprazole (NEXIUM) 40 mg capsule Take 1 capsule by mouth daily before breakfast. famotidine (PEPCID) 40 mg tablet Take 1 tablet by mouth once daily. DULoxetine (CYMBALTA) 60 mg capsule Take 1 capsule by mouth once daily. Lactobacill 46-B.animal-inulin (PROBIOTIC-10, WITH INULIN,) 10 billion cell -100 mg cap Take 400 mg by mouth once daily. collagen, hydrolysate, bovine, (COLLAGEN, HYDR, BOVINE,, BULK,) 100 % powd 1 Scoop twice daily. Cholecalciferol, Vitamin D3, 125 mcg (5,000 unit) cap Take 1 capsule by mouth once daily. fluticasone (FLONASE) 50 mcg/actuation nasal spray Use 1 [place] in each nostril once daily. predniSONE (DELTASONE) 20 mg tablet 1 tablet three times a day for 3 days, then 2 times a day for 3 days, the one daily for 3 days. Blood Pressure Monitor (BLOOD PRESSURE KIT) 1 Each once daily. No current facility-administered medications for this visit. ALLERGIES Allergen Reactions Atorvastatin Unknown Imitrex [Sumatripta* Intolerance blood pressure elevation Morphine Vomiting severe vomiting Penicillins Rash Xaadeld-Fpt-Lyy Red* GI Upset Sumatriptan Other: See Comments ACTIVE PROBLEM LIST Depressive Disorder - 08/05/2023 Fatigue - 08/05/2023 Hemorrhoids - 08/05/2023 History of Spinal Surgery - 08/05/2023 History of Hysterectomy - 08/05/2023 Numbness and Tingling Sensation of Skin - 08/05/2023 Fibromyalgia - 09/23/2022 Obesity, Class II, Bmi 35-39.9 - 09/08/2022 Hiatal Hernia - 09/08/2022 Hypothyroidism - 09/08/2022 Hyperlipidemia - 02/09/2009 11.2.1 Cervicogenic headache [ M99] [784.0] - 11/16/2008 Migraine With Aura - 11/16/2008 Mild Episode of Recurrent Major Depressive Disorder (Hcc) - 01/19/2007 Esophageal Reflux - 10/05/2006 Allergic Rhinitis - 10/05/2006 Degeneration of Lumbar Or Lumbosacral Intervertebral Disc - 03/12/2004 Social History Tobacco Use Smoking status: Never Smokeless tobacco: Never Vaping Use Vaping Use: Never used Substance Use Topics Alcohol use: Yes Comment: occassionally Drug use: No Review of Systems Respiratory: Negative. Cardiovascular: Negative. Musculoskeletal: Positive for arthralgias and myalgias. OBJECTIVE BP 120/80 Pulse 68 Wt 219 lb (99.3kg) SpO2 99% Physical Exam Vitals and nursing note reviewed. Constitutional: General: She is awake. She is not in acute distress. Appearance: Normal appearance. She is well-developed and well-groomed. She is not ill-appearing, toxic-appearing or diaphoretic. HENT: Head: Normocephalic. Right Ear: External ear normal. Left Ear: External ear normal. Nose: Nose normal. Eyes: General: Vision grossly intact. Conjunctiva/sclera: Conjunctivae normal. Pupils: Pupils are equal, round, and reactive to light. Neck: Vascular: No JVD. Trachea: Trachea normal. Cardiovascular: Rate and Rhythm: Normal rate and regular rhythm. Pulses: Normal pulses. Heart sounds: Normal heart sounds. No murmur heard. Pulmonary: Effort: Pulmonary effort is normal. No accessory muscle usage, prolonged expiration or respiratory distress. Breath sounds: Normal breath sounds. Musculoskeletal: Right upper arm: Swelling and tenderness present. No lacerations. Cervical back: Neck supple. Comments: Right upper arm with large bruise present medially Skin: General: Skin is warm and dry. Capillary Refill: Capillary refill takes less than 2 seconds. Neurological: General: No focal deficit present. Mental Status: She is alert and oriented to person, place, and time. Mental status is at baseline. Psychiatric: Attention and Perception: Attention and perception normal. Mood and Affect: Mood and affect normal. Speech: Speech normal. Behavior: Behavior normal. Behavior is cooperative. Thought Content: Thought content normal. Cognition and Memory: Cognition and memory normal. Judgment: Judgment normal. ASSESSMENT/PLAN: 1. Primary hypertension - ICD9: 401.9, ICD10: I10 (primary diagnosis) - Controlled - Continue current medications - Recommend home blood pressure monitoring, to bring results to next visit - Encouraged sodium restriction, DASH or Mediterranean diet - Recommend regular aerobic exercise 2. Right arm pain - ICD9: 729.5, ICD10: M79.601 We can do a steroid taper and refer to ortho, really needs to get ortho eval and treatment. - CONSULT TO ORTHOPAEDICS - PREDNISONE 20 MG TABLET 3. Seasonal allergic rhinitis, unspecified trigger - ICD9: 477.9, ICD10: J30.2 - FLUTICASONE PROPIONATE 50 MCG/ACTUATION NASAL SPRAY,SUSPENSION Portions of this note have been entered by ancillary staff. I have reviewed and when necessary edited, so that they are an adequate record of my encounter with this patient Please note that parts of this document were created using voice recognition software and therefore may contain grammatical errors. Patient verbalizes understanding of instructions from today's visit and in agreement with treatment plan. Questions answered. Agrees to call the office if questions, concerns of issues with acute symptoms not improving or if they worsen. See diagnoses and orders for additional plan(s). Allergies and medications were reviewed, list was updated, and refills given if needed. Past medical, surgical, social, and family history reviewed and updated as appropriate. Encouraged proper diet & exercise as well as compliance with taking medications. Age-appropriate health preventative measures were discussed. Return in about 3 months (around 04/15/2024) for Follow up on chronic conditions and medications.. Thad Vasques APRN-OVIDIO documented in this encounter [facility] 12-24-2023 Note HNO ID: [id number] Author: THAD VASQUES APRN.CNP Service: ? Author Type: Nurse Practitioner Type: Progress Notes Filed: 12/24/2023 14:45 Note Text: SUBJECTIVE Jacky Wolfe is a 53 year old female here today for a check up on her medical problems. Chief Complaint Patient presents with: Blood Pressure: has been elevated 170/100 on average HPI Jacky Wolfe is a 53 year old female. She is an established patient of Perez Rooney MD. Here today for concerns of high blood pressure. Recently she had a blood pressure check at work and it was high. She admits to having more stress at work, in pain too (worker's comp). had some health issues. With this she has been increasing her alcohol use some. Prior elevated blood pressures in the past. In the past she was on propranolol and HCTZ. She did have labs with work. We do not have a copy today. No chest pain, chest tightness or shortness of breath. Her medications were reviewed today and her list is now up to date. Medications Current Outpatient Medications Medication Sig loratadine (CLARITIN) 10 mg tablet Take 1 tablet by mouth once daily. cyclobenzaprine (FLEXERIL) 10 mg tablet Take 1 tablet by mouth daily at bedtime. topiramate (TOPAMAX) 25 mg tablet buPROPion XL (WELLBUTRIN XL) 300 mg 24 hr tablet Take 1 tablet by mouth once daily. esomeprazole (NEXIUM) 40 mg capsule Take 1 capsule by mouth daily before breakfast. famotidine (PEPCID) 40 mg tablet Take 1 tablet by mouth once daily. DULoxetine (CYMBALTA) 60 mg capsule Take 1 capsule by mouth once daily. fluticasone (FLONASE) 50 mcg/actuation nasal spray Use 1 [place] in each nostril once daily. Lactobacill 46-B.animal-inulin (PROBIOTIC-10, WITH INULIN,) 10 billion cell -100 mg cap Take 400 mg by mouth once daily. collagen, hydrolysate, bovine, (COLLAGEN, HYDR, BOVINE,, BULK,) 100 % powd 1 Scoop twice daily. Cholecalciferol, Vitamin D3, 125 mcg (5,000 unit) cap Take 1 capsule by mouth once daily. losartan (COZAAR) 25 mg tablet Take 1 tablet by mouth once daily. Blood Pressure Monitor (BLOOD PRESSURE KIT) 1 Each once daily. No current facility-administered medications for this visit. ALLERGIES Allergen Reactions Atorvastatin Unknown Imitrex [Sumatripta* Intolerance blood pressure elevation Morphine Vomiting severe vomiting Penicillins Rash Gzhosyb-Svv-Xko Red* GI Upset Sumatriptan Other: See Comments ACTIVE PROBLEM LIST Depressive Disorder - 08/05/2023 Fatigue - 08/05/2023 Hemorrhoids - 08/05/2023 History of Spinal Surgery - 08/05/2023 History of Hysterectomy - 08/05/2023 Numbness and Tingling Sensation of Skin - 08/05/2023 Fibromyalgia - 09/23/2022 Obesity, Class II, Bmi 35-39.9 - 09/08/2022 Hiatal Hernia - 09/08/2022 Hypothyroidism - 09/08/2022 Hyperlipidemia - 02/09/2009 11.2.1 Cervicogenic headache [ M99] [784.0] - 11/16/2008 Migraine With Aura - 11/16/2008 Mild Episode of Recurrent Major Depressive Disorder (Hcc) - 01/19/2007 Esophageal Reflux - 10/05/2006 Allergic Rhinitis - 10/05/2006 Degeneration of Lumbar Or Lumbosacral Intervertebral Disc - 03/12/2004 Social History Tobacco Use Smoking status: Never Smokeless tobacco: Never Vaping Use Vaping Use: Never used Substance Use Topics Alcohol use: Yes Comment: occassionally Drug use: No Review of Systems Respiratory: Negative. Cardiovascular: Negative. OBJECTIVE BP 146/88 Pulse 69 Wt 215 lb (97.5kg) SpO2 99% Physical Exam Vitals and nursing note reviewed. Constitutional: General: She is awake. She is not in acute distress. Appearance: Normal appearance. She is well-developed and well-groomed. She is not ill-appearing, toxic-appearing or diaphoretic. HENT: Head: Normocephalic. Right Ear: External ear normal. Left Ear: External ear normal. Nose: Nose normal. Eyes: General: Vision grossly intact. Conjunctiva/sclera: Conjunctivae normal. Pupils: Pupils are equal, round, and reactive to light. Neck: Vascular: No JVD. Trachea: Trachea normal. Cardiovascular: Rate and Rhythm: Normal rate and regular rhythm. Pulses: Normal pulses. Heart sounds: Normal heart sounds. No murmur heard. Pulmonary: Effort: Pulmonary effort is normal. No accessory muscle usage, prolonged expiration or respiratory distress. Breath sounds: Normal breath sounds. Musculoskeletal: Cervical back: Neck supple. Skin: General: Skin is warm and dry. Capillary Refill: Capillary refill takes less than 2 seconds. Neurological: General: No focal deficit present. Mental Status: She is alert and oriented to person, place, and time. Mental status is at baseline. Psychiatric: Attention and Perception: Attention and perception normal. Mood and Affect: Mood and affect normal. Speech: Speech normal. Behavior: Behavior normal. Behavior is cooperative. Thought Content: Thought content normal. Cognition and Memory: Cognition and memory normal (more content not included)... [facility] 12-24-2023 History of Present illness Narrative SUBJECTIVE Jacky Wolfe is a 53 year old female here today for a check up on her medical problems. Chief Complaint Patient presents with: Blood Pressure: has been elevated 170/100 on average HPI Jacky Wolfe is a 53 year old female. She is an established patient of Perez Rooney MD. Here today for concerns of high blood pressure. Recently she had a blood pressure check at work and it was high. She admits to having more stress at work, in pain too (worker's comp). had some health issues. With this she has been increasing her alcohol use some. Prior elevated blood pressures in the past. In the past she was on propranolol and HCTZ. She did have labs with work. We do not have a copy today. No chest pain, chest tightness or shortness of breath. Her medications were reviewed today and her list is now up to date. Medications Current Outpatient Medications Medication Sig loratadine (CLARITIN) 10 mg tablet Take 1 tablet by mouth once daily. cyclobenzaprine (FLEXERIL) 10 mg tablet Take 1 tablet by mouth daily at bedtime. topiramate (TOPAMAX) 25 mg tablet buPROPion XL (WELLBUTRIN XL) 300 mg 24 hr tablet Take 1 tablet by mouth once daily. esomeprazole (NEXIUM) 40 mg capsule Take 1 capsule by mouth daily before breakfast. famotidine (PEPCID) 40 mg tablet Take 1 tablet by mouth once daily. DULoxetine (CYMBALTA) 60 mg capsule Take 1 capsule by mouth once daily. fluticasone (FLONASE) 50 mcg/actuation nasal spray Use 1 [place] in each nostril once daily. Lactobacill 46-B.animal-inulin (PROBIOTIC-10, WITH INULIN,) 10 billion cell -100 mg cap Take 400 mg by mouth once daily. collagen, hydrolysate, bovine, (COLLAGEN, HYDR, BOVINE,, BULK,) 100 % powd 1 Scoop twice daily. Cholecalciferol, Vitamin D3, 125 mcg (5,000 unit) cap Take 1 capsule by mouth once daily. losartan (COZAAR) 25 mg tablet Take 1 tablet by mouth once daily. Blood Pressure Monitor (BLOOD PRESSURE KIT) 1 Each once daily. No current facility-administered medications for this visit. ALLERGIES Allergen Reactions Atorvastatin Unknown Imitrex [Sumatripta* Intolerance blood pressure elevation Morphine Vomiting severe vomiting Penicillins Rash Dsmtzye-Vwc-Ech Red* GI Upset Sumatriptan Other: See Comments ACTIVE PROBLEM LIST Depressive Disorder - 08/05/2023 Fatigue - 08/05/2023 Hemorrhoids - 08/05/2023 History of Spinal Surgery - 08/05/2023 History of Hysterectomy - 08/05/2023 Numbness and Tingling Sensation of Skin - 08/05/2023 Fibromyalgia - 09/23/2022 Obesity, Class II, Bmi 35-39.9 - 09/08/2022 Hiatal Hernia - 09/08/2022 Hypothyroidism - 09/08/2022 Hyperlipidemia - 02/09/2009 11.2.1 Cervicogenic headache [ M99] [784.0] - 11/16/2008 Migraine With Aura - 11/16/2008 Mild Episode of Recurrent Major Depressive Disorder (Hcc) - 01/19/2007 Esophageal Reflux - 10/05/2006 Allergic Rhinitis - 10/05/2006 Degeneration of Lumbar Or Lumbosacral Intervertebral Disc - 03/12/2004 Social History Tobacco Use Smoking status: Never Smokeless tobacco: Never Vaping Use Vaping Use: Never used Substance Use Topics Alcohol use: Yes Comment: occassionally Drug use: No Review of Systems Respiratory: Negative. Cardiovascular: Negative. OBJECTIVE BP 146/88 Pulse 69 Wt 215 lb (97.5kg) SpO2 99% Physical Exam Vitals and nursing note reviewed. Constitutional: General: She is awake. She is not in acute distress. Appearance: Normal appearance. She is well-developed and well-groomed. She is not ill-appearing, toxic-appearing or diaphoretic. HENT: Head: Normocephalic. Right Ear: External ear normal. Left Ear: External ear normal. Nose: Nose normal. Eyes: General: Vision grossly intact. Conjunctiva/sclera: Conjunctivae normal. Pupils: Pupils are equal, round, and reactive to light. Neck: Vascular: No JVD. Trachea: Trachea normal. Cardiovascular: Rate and Rhythm: Normal rate and regular rhythm. Pulses: Normal pulses. Heart sounds: Normal heart sounds. No murmur heard. Pulmonary: Effort: Pulmonary effort is normal. No accessory muscle usage, prolonged expiration or respiratory distress. Breath sounds: Normal breath sounds. Musculoskeletal: Cervical back: Neck supple. Skin: General: Skin is warm and dry. Capillary Refill: Capillary refill takes less than 2 seconds. Neurological: General: No focal deficit present. Mental Status: She is alert and oriented to person, place, and time. Mental status is at baseline. Psychiatric: Attention and Perception: Attention and perception normal. Mood and Affect: Mood and affect normal. Speech: Speech normal. Behavior: Behavior normal. Behavior is cooperative. Thought Content: Thought content normal. Cognition and Memory: Cognition and memory normal. Judgment: Judgment normal. ASSESSMENT/PLAN: 1. Primary hypertension - ICD9: 401.9, ICD10: I10 (primary diagnosis) - Worsening control - Start losartan - Recommend home blood pressure monitoring, to bring results to next visit - Encouraged sodium restriction, DASH or Mediterranean diet - Recommend regular aerobic exercise - Reviewed risks of hypertension and principles of treatment - Follow up in 4 weeks for hypertension visit - We can check an EKG today to ensure no issues and get a copy of her labs to review those. EKG shows sinus, no signs of arrhythmia, ectopy or ischemia. - ECG COMPLETE - LOSARTAN 25 MG TABLET - BLOOD PRESSURE MONITOR KIT 2. Stress and adjustment reaction - ICD9: 309.89, ICD10: F43.29 Healthy coping skills recommended, try to reduce alcohol use if able. Portions of this note have been entered by ancillary staff. I have reviewed and when necessary edited, so that they are an adequate record of my encounter with this patient Please note that parts of this document were created using voice recognition software and therefore may contain grammatical errors. Patient verbalizes understanding of instructions from today's visit and in agreement with treatment plan. Questions answered. Agrees to call the office if questions, concerns of issues with acute symptoms not improving or if they worsen. See diagnoses and orders for additional plan(s). Allergies and medications were reviewed, list was updated, and refills given if needed. Past medical, surgical, social, and family history reviewed and updated as appropriate. Encouraged proper diet & exercise as well as compliance with taking medications. Age-appropriate health preventative measures were discussed. Return in about 4 weeks (around 01/21/2024) for recheck on blood pressure. Thad Vasques APRN-OVIDIO documented in this encounter [facility] 12-22-2023 Telephone encounter Note Patient has been identified by name and date of : Yes Patient phones for refill(s): Requested Prescriptions Pending Prescriptions Disp Refills loratadine (CLARITIN) 10 mg tablet 90 tablet 2 Sig: Take 1 tablet by mouth once daily. Date of last office visit in primary care: 08/05/2023 Date of next office visit in primary care: 12/24/2023 Please advise. Thank you. Saranya Potts LPN. [facility] 12-22-2023 Miscellaneous Notes Patient has been identified by name and date of : Yes Patient phones for refill(s): Requested Prescriptions Pending Prescriptions Disp Refills loratadine (CLARITIN) 10 mg tablet 90 tablet 2 Sig: Take 1 tablet by mouth once daily. Date of last office visit in primary care: 08/05/2023 Date of next office visit in primary care: 12/24/2023 Please advise. Thank you. Saranya Potts LPN. documented in this encounter [facility] 10-06-2023 Miscellaneous Notes Patient was given the [facility] phone # to schedule in their [place] office. She will call and schedule. CHEKO Types of orders made on 10/05/2023: Medications, Referral Order Date:10/05/2023 Ordering User:COURTNEY GUZMÁN [[id number]] Encounter Provider:Courtney Guzmán APRN.INSURANCE RISK MANAGER [[id number]] Author thomas Provider: Courtney Guzmán APRN.INSURANCE RISK MANAGER [[id number]] Department:[facility][[id number]] Order Specific Information Order: [facility] [Custom: [id number]] Order #: [id number]: 1 Priority: Routine Class: Internal Referral Associated Diagnoses M54.32 Left sided sciatica [facility] Epic access? -> Yes Priority: Routine Cla ss: Internal Referral Associated Diagnoses M54.32 Left sided sciatica [facility] Epic access? -> Yes documented in this encounter [facility] 10-05-2023 Note HNO ID: [id number] Author: COURTNEY GUZMÁN APRN.INSURANCE RISK MANAGER Service: ? Author Type: Nurse Practitioner Type: Progress Notes Filed: 10/05/2023 07:46 Note Text: Subjective Musculoskeletal Problem Pertinent negatives include no chills, fever or rash. Jacky Wolfe is a 53 year old female who presents with left lower back pain that radiates to her hip and buttock and left leg for the past 2 days. She denies injury. She has had 2 previous back surgeries for herniated disc at L4S1 area. She was working in her garden 2 days ago and was pulling posts. She rates her pain 9/10. She has been taking ibuprofen for pain at home. Review of Systems Constitutional: Negative for chills and fever. Respiratory: Negative. Cardiovascular: Negative. Musculoskeletal: Positive for back pain and joint pain. Negative for falls. Skin: Negative for itching and rash. BP 156/87 Pulse 65 Temp 36.9 ?C (98.4 ?F) Resp 18 Wt 98.4 kg (217 lb) SpO2 100% BMI 35.56 kg/m? PAST MEDICAL HISTORY Diagnosis Date Adjustment disorder with depressed mood Esophageal reflux Hiatal hernia 2021 Low back pain Migraines PAST SURGICAL HISTORY Procedure Laterality Date PAST SURGICAL HISTORY OF 02/04/2004 REMOVAL VSP L5 TLIF PAST SURGICAL HISTORY OF Bilateral plantar fasciotomy VAGINAL HYSTERECTOMY UTERUS 250 GM/< Hysterectomy, vaginal ALLERGIES Atorvastatin, Imitrex [Sumatriptan Succinate], Morphine, Penicillins, Lwrezwf-Vkj-Rjc Reductase Inhibitors, and Sumatriptan MEDICATIONS topiramate (TOPAMAX) 25 mg tablet buPROPion XL (WELLBUTRIN XL) 300 mg 24 hr tablet Take 1 tablet by mouth once daily. esomeprazole (NEXIUM) 40 mg capsule Take 1 capsule by mouth daily before breakfast. famotidine (PEPCID) 40 mg tablet Take 1 tablet by mouth once daily. DULoxetine (CYMBALTA) 60 mg capsule Take 1 capsule by mouth once daily. loratadine (CLARITIN) 10 mg tablet Take 1 tablet by mouth once daily. fluticasone (FLONASE) 50 mcg/actuation nasal spray Use 1 [place] in each nostril once daily. Lactobacill 46-B.animal-inulin (PROBIOTIC-10, WITH INULIN,) 10 billion cell -100 mg cap Take 400 mg by mouth once daily. collagen, hydrolysate, bovine, (COLLAGEN, HYDR, BOVINE,, BULK,) 100 % powd 1 Scoop twice daily. Cholecalciferol, Vitamin D3, 125 mcg (5,000 unit) cap Take 1 capsule by mouth once daily. predniSONE (DELTASONE) 10 mg tablet Take 4 tabs daily for 3 days, then 2 tabs daily for 3 days, then 1 tab daily for 3 days with food. cyclobenzaprine (FLEXERIL) 10 mg tablet Take 1 tablet by mouth daily at bedtime. FAMILY HISTORY Problem Relation Age of Onset Thyroid Mother Heart Mother Psychiatry Mother depression Hypertension Mother Ischemic Heart Disease Mother Lipids Mother Diabetes Mother Headache Mother Heart Father Psychiatry Father depression Hypertension Father Lipids Father Diabetes Father Headache Father Psychiatry Maternal Grandmother depression Psychiatry Daughter depression Social History Tobacco Use Smoking status: Never Smokeless tobacco: Never Vaping Use Vaping Use: Never used Substance Use Topics Alcohol use: Yes Comment: occassionally Drug use: No Objective Physical Exam Vitals and nursing note reviewed. Constitutional: Appearance: Normal appearance. Cardiovascular: Rate and Rhythm: Normal rate and regular rhythm. Heart sounds: Normal heart sounds. Pulmonary: Effort: Pulmonary effort is normal. No respiratory distress. Breath sounds: Normal breath sounds. No wheezing or rales. Musculoskeletal: General: Tenderness present. No signs of injury. Lumbar back: Tenderness present. No swelling, deformity, signs of trauma, spasms or bony tenderness. Decreased range of motion. Positive right straight leg raise test and positive left straight leg raise test. Back: Skin: General: Skin is warm and dry. Findings: No bruising, erythema or rash. Neurological: Mental Status: She is alert. ASSESSMENT/PLAN: 1. Left sided sciatica - ICD9: 724.3, ICD10: M54.32 - Ice for localized tenderness - Prednisone burst- see orders - Muscle relaxant- see orders - Patient given instructions use of medications as ordered, intermittent rest, back care exercise program, and do not take ibuprofen while on the prednisone. You may take tylenol if needed. - PREDNISONE 10 MG TABLET - CYCLOBENZAPRINE 10 MG TABLET - [facility]- Call to schedule. - Follow-up with your PCP in 3-5 days if symptoms have not improved or sooner if symptoms worsen - Discussed red flags and need for immediate medical evaluation if any occur. - Discussed supportive care treatment with fluids, rest and analgesia. - Discussed expected course of illness Courtney Guzmán APRN.[facility] 10-05-2023 History of Present illness Narrative Images from the original note were not included. Subjective Musculoskeletal Problem Pertinent negatives include no chills, fever or rash. Jacky Wolfe is a 53 year old female who presents with left lower back pain that radiates to her hip and buttock and left leg for the past 2 days. She denies injury. She has had 2 previous back surgeries for herniated disc at L4S1 area. She was working in her garden 2 days ago and was pulling posts. She rates her pain 9/10. She has been taking ibuprofen for pain at home. Review of Systems Constitutional: Negative for chills and fever. Respiratory: Negative. Cardiovascular: Negative. Musculoskeletal: Positive for back pain and joint pain. Negative for falls. Skin: Negative for itching and rash. BP 156/87 Pulse 65 Temp 36.9 C (98.4 F) Resp 18 Wt 98.4 kg (217 lb) SpO2 100% BMI 35.56 kg/m PAST MEDICAL HISTORY Diagnosis Date Adjustment disorder with depressed mood Esophageal reflux Hiatal hernia 2021 Low back pain Migraines PAST SURGICAL HISTORY Procedure Laterality Date PAST SURGICAL HISTORY OF 02/04/2004 REMOVAL VSP L5 TLIF PAST SURGICAL HISTORY OF Bilateral plantar fasciotomy VAGINAL HYSTERECTOMY UTERUS 250 GM/< Hysterectomy, vaginal ALLERGIES Atorvastatin, Imitrex [Sumatriptan Succinate], Morphine, Penicillins, Gugshjz-Joa-Eok Reductase Inhibitors, and Sumatriptan MEDICATIONS topiramate (TOPAMAX) 25 mg tablet buPROPion XL (WELLBUTRIN XL) 300 mg 24 hr tablet Take 1 tablet by mouth once daily. esomeprazole (NEXIUM) 40 mg capsule Take 1 capsule by mouth daily before breakfast. famotidine (PEPCID) 40 mg tablet Take 1 tablet by mouth once daily. DULoxetine (CYMBALTA) 60 mg capsule Take 1 capsule by mouth once daily. loratadine (CLARITIN) 10 mg tablet Take 1 tablet by mouth once daily. fluticasone (FLONASE) 50 mcg/actuation nasal spray Use 1 [place] in each nostril once daily. Lactobacill 46-B.animal-inulin (PROBIOTIC-10, WITH INULIN,) 10 billion cell -100 mg cap Take 400 mg by mouth once daily. collagen, hydrolysate, bovine, (COLLAGEN, HYDR, BOVINE,, BULK,) 100 % powd 1 Scoop twice daily. Cholecalciferol, Vitamin D3, 125 mcg (5,000 unit) cap Take 1 capsule by mouth once daily. predniSONE (DELTASONE) 10 mg tablet Take 4 tabs daily for 3 days, then 2 tabs daily for 3 days, then 1 tab daily for 3 days with food. cyclobenzaprine (FLEXERIL) 10 mg tablet Take 1 tablet by mouth daily at bedtime. FAMILY HISTORY Problem Relation Age of Onset Thyroid Mother Heart Mother Psychiatry Mother depression Hypertension Mother Ischemic Heart Disease Mother Lipids Mother Diabetes Mother Headache Mother Heart Father Psychiatry Father depression Hypertension Father Lipids Father Diabetes Father Headache Father Psychiatry Maternal Grandmother depression Psychiatry Daughter depression Social History Tobacco Use Smoking status: Never Smokeless tobacco: Never Vaping Use Vaping Use: Never used Substance Use Topics Alcohol use: Yes Comment: occassionally Drug use: No Objective Physical Exam Vitals and nursing note reviewed. Constitutional: Appearance: Normal appearance. Cardiovascular: Rate and Rhythm: Normal rate and regular rhythm. Heart sounds: Normal heart sounds. Pulmonary: Effort: Pulmonary effort is normal. No respiratory distress. Breath sounds: Normal breath sounds. No wheezing or rales. Musculoskeletal: General: Tenderness present. No signs of injury. Lumbar back: Tenderness present. No swelling, deformity, signs of trauma, spasms or bony tenderness. Decreased range of motion. Positive right straight leg raise test and positive left straight leg raise test. Back: Skin: General: Skin is warm and dry. Findings: No bruising, erythema or rash. Neurological: Mental Status: She is alert. ASSESSMENT/PLAN: 1. Left sided sciatica - ICD9: 724.3, ICD10: M54.32 - Ice for localized tenderness - Prednisone burst- see orders - Muscle relaxant- see orders - Patient given instructions use of medications as ordered, intermittent rest, back care exercise program, and do not take ibuprofen while on the prednisone. You may take tylenol if needed. - PREDNISONE 10 MG TABLET - CYCLOBENZAPRINE 10 MG TABLET - [facility]- Call to schedule. - Follow-up with your PCP in 3-5 days if symptoms have not improved or sooner if symptoms worsen - Discussed red flags and need for immediate medical evaluation if any occur. - Discussed supportive care treatment with fluids, rest and analgesia. - Discussed expected course of illness Courtney Guzmán APRN.OVIDIO documented in this encounter [facility] 10-05-2023 Instructions Courtney Guzmán APRN.INSURANCE RISK MANAGER - 10/05/2023 7:37 AM EST ASSESSMENT/PLAN: 1. Left sided sciatica - ICD9: 724.3, ICD10: M54.32 - Ice for localized tenderness - Prednisone burst- see orders - Muscle relaxant- see orders - Patient given instructions use of medications as ordered, intermittent rest, back care exercise program, and do not take ibuprofen while on the prednisone. You may take tylenol if needed. - PREDNISONE 10 MG TABLET - CYCLOBENZAPRINE 10 MG TABLET - [facility]- Call to schedule. - Follow-up with your PCP in 3-5 days if symptoms have not improved or sooner if symptoms worsen - Discussed red flags and need for immediate medical evaluation if any occur. - Discussed supportive care treatment with fluids, rest and analgesia. - Discussed expected course of illness Courtney Guzmán APRN.OVIDIO SCIATICA: Your exam shows you have sciatica, a condition most often seen in patients with disc disease of the lower back. Sciatica causes pain to radiate from the lower back or buttock area down the leg. It results from pressure on nerve roots coming out of the spine when a disc deteriorates and pushes to one side. Often there is a history of back problems. In most cases sciatica improves greatly with conservative treatment. Most patients with it are completely better after 2-4 weeks of supportive care. Bed rest reduces the disc pressure greatly; sitting is the worst position since the pressure on the disc is over 5 times greater than it is while lying down. You should avoid bending, lifting, and all other activities which make the problem worse. After the pain improves, you may continue with normal activity, taking brief periods for bed rest throughout the day until you are back to normal. Aspirin, ibuprofen, or other anti-inflammatory drugs are often used to help control pain. Muscle relaxants may help by relieving spasm and providing mild sedation. Cold therapy and massage may also give significant relief. Spinal manipulation is not recommended because it can increase the degree of disc protrusion. Surgery is reserved for patients that do not improve with conservative treatment, or who have signs of severe nerve root pressure. You should see your doctor for follow up care as recommended. A program for back injury rehabilitation with stretching and strengthening exercises is an important part of management. Please call your doctor, a back specialist, or the emergency room right away if you notice increased pain, weakness, or numbness in your legs, or if you have any difficulty with bladder or bowel control. documented in this encounter [facility] 08-05-2023 History of Present illness Narrative SUBJECTIVE: Hepatitis B Vaccine(1 of 3 - 3-dose series) Never done BP Controlled (<130/80) Never done Colorectal Cancer Screening Never done Shingrix Vaccine(1 of 2) Never done Influenza Vaccine(1) due on 04/30/2023 Covid-19 Vaccine( season) due on 04/30/2023 Mammogram Screening due on 10/12/2023 HPI Jacky Wolfe is a 53 year old female. PMH significant for ACTIVE PROBLEM LIST Degeneration of Lumbar Or Lumbosacral Intervertebral Disc Esophageal Reflux Allergic Rhinitis Mild Episode of Recurrent Major Depressive Disorder (Hcc) 11.2.1 Cervicogenic headache [ M99] [784.0] Migraine With Aura Hyperlipidemia Obesity, Class II, Bmi 35-39.9 Hiatal Hernia Hypothyroidism Fibromyalgia She was last seen by Thad Vasques CNP April 21, 2023. Noted that she had stopped taking HCTZ and Topamax due to GI upset. Noted that she started taking Cymbalta which she was finding helpful. Today notes she has resumed Topamax for headache, seems to be helping with headaches. Hypothyroidism. TSH (mIU/L) Date Value 09/08/2022 3.780 ) GERD: wthout current complaint. Depression: mood is stable on duloxetine. She notes sinus congestion and drainage, some sinus pressure. Afebrile no other upper respiratory complaints. No sick contacts. Notes she has chronic sinus congestion and drainage. Using antihistamine and nasal steroid. Review of Systems Constitutional: Negative. HENT: Positive for rhinorrhea and sinus pressure. Gastrointestinal: Negative. Neurological: Negative. Psychiatric/Behavioral: Negative. Objective BP 144/84 Pulse 62 Ht 166.4 cm (5' 5.5 ) Wt 100.7 kg (222 lb) SpO2 98% BMI 36.38 kg/m Physical Exam Vitals and nursing note reviewed. Constitutional: Appearance: Normal appearance. HENT: Head: Normocephalic and atraumatic. Right Ear: Tympanic membrane and ear canal normal. Left Ear: Tympanic membrane and ear canal normal. Nose: Mucosal edema present. Right Sinus: Maxillary sinus tenderness present. Left Sinus: Maxillary sinus tenderness present. Mouth/Throat: Lips: [place]. Mouth: Mucous membranes are moist. Pharynx: Oropharynx is clear. Eyes: Conjunctiva/sclera: Conjunctivae normal. Cardiovascular: Rate and Rhythm: Normal rate and regular rhythm. Heart sounds: Normal heart sounds. Pulmonary: Effort: Pulmonary effort is normal. Breath sounds: Normal breath sounds. Abdominal: General: Bowel sounds are normal. Palpations: Abdomen is soft. Skin: General: Skin is warm and dry. Neurological: General: No focal deficit present. Mental Status: She is alert and oriented to person, place, and time. ALLERGIES Allergen Reactions Atorvastatin Unknown Imitrex [Sumatripta* Intolerance blood pressure elevation Morphine Vomiting severe vomiting Penicillins Rash Eatsgqd-Meb-Vci Red* GI Upset Sumatriptan Other: See Comments Medications buPROPion XL (WELLBUTRIN XL) 300 mg 24 hr tablet Take 1 tablet by mouth once daily. esomeprazole (NEXIUM) 40 mg capsule Take 1 capsule by mouth daily before breakfast. famotidine (PEPCID) 40 mg tablet Take 1 tablet by mouth once daily. DULoxetine (CYMBALTA) 60 mg capsule Take 1 capsule by mouth once daily. loratadine (CLARITIN) 10 mg tablet Take 1 tablet by mouth once daily. fluticasone (FLONASE) 50 mcg/actuation nasal spray Use 1 [place] in each nostril once daily. Lactobacill 46-B.animal-inulin (PROBIOTIC-10, WITH INULIN,) 10 billion cell -100 mg cap Take 400 mg by mouth once daily. collagen, hydrolysate, bovine, (COLLAGEN, HYDR, BOVINE,, BULK,) 100 % powd 1 Scoop twice daily. Cholecalciferol, Vitamin D3, 125 mcg (5,000 unit) cap Take 1 capsule by mouth once daily. PAST MEDICAL HISTORY Diagnosis Date Adjustment disorder with depressed mood Esophageal reflux Hiatal hernia 2021 Low back pain Migraines Social History Tobacco Use Smoking status: Never Smokeless tobacco: Never Vaping Use Vaping Use: Never used Substance Use Topics Alcohol use: Yes Comment: occassionally Drug use: No ASSESSMENT/PLAN: 1. Primary hypertension - ICD9: 401.9, ICD10: I10 (primary diagnosis) Suboptimal control, upper limits of normal and above of late, states she is not feeling too well today. Will bring back in 3 months for recheck. If remains above target add amlodipine 2.5 mg - Encouraged sodium restriction, DASH or Mediterranean diet - Recommend regular aerobic exercise - COMP METABOLIC PANEL - CBC + DIFF 2. Screening for colon cancer - ICD9: V76.51, ICD10: Z12.11 - CONSULT TO GENERAL SURGERY 3. Encounter for screening mammogram for breast cancer - ICD9: V76.12, ICD10: Z12.31 - Encourage monthly BSE - ALAN SCREENING 4. Migraine with aura and without status migrainosus, not intractable - ICD9: 346.00, ICD10: G43.109 Continue with current treatment unchanged, continue to monitor - TOPIRAMATE 25 MG TABLET - COMP METABOLIC PANEL - CBC + DIFF 5. Hypothyroidism, unspecified type - ICD9: 244.9, ICD10: E03.9 Not currently taking medication, last level was elevated, recheck and treat accordingly - COMP METABOLIC PANEL - TSH BLD 6. Hyperlipidemia, unspecified hyperlipidemia type - ICD9: 272.4, ICD10: E78.5 See scanned documents, LDL was a bit elevated, recheck with next lab work Recommend a plant based diet such as Mediterranean diet with plenty of vegetables, fruits,whole grains, fish, chicken, turkey or plant proteins and routine exercise such as walking - LIPID PANEL BASIC 7. Sinus pressure - ICD9: 478.19, ICD10: J34.89 Continue with antihistamine and Flonase. Try NeilMed sinus rinse - Supportive care with plenty of fluids, rest, and analgesia prn. - AZITHROMYCIN 250 MG TABLET 8. Encounter for immunization - ICD9: V03.89, ICD10: Z23 - ZOSTER VACCINE, RECOMBINANT (SHINGRIX) - [employer] COVID-19 VACCINE ( SEASON) AGE 12+ YR 3 mo recheck BP 6 m o.fu MD Kerri Bain APRN.CNS Medical Decision Making: Problems: Moderate: 2+ stable chronic illnesses Risk: Moderate: Drug management Medical Decision Making Level: 4 - Moderate documented in this encounter [facility] 08-05-2023 Note HNO ID: [id number] Author: Marvin, Kerri, METAL FENCE ERECTOR.RESIDENT CARE ASSOCIATE Service: ? Author Type: Nurse Specialist Type: Progress Notes Filed: 08/05/2023 4:04 PM Note Text: SUBJECTIVE: Hepatitis B Vaccine(1 of 3 - 3-dose series) Never done BP Controlled (<130/80) Never done Colorectal Cancer Screening Never done Shingrix Vaccine(1 of 2) Never done Influenza Vaccine(1) due on 04/30/2023 Covid-19 Vaccine( season) due on 04/30/2023 Mammogram Screening due on 10/12/2023 HPI Jacky Wolfe is a 53 year old female. PMH significant for ACTIVE PROBLEM LIST Degeneration of Lumbar Or Lumbosacral Intervertebral Disc Esophageal Reflux Allergic Rhinitis Mild Episode of Recurrent Major Depressive Disorder (Hcc) 11.2.1 Cervicogenic headache [ M99] [784.0] Migraine With Aura Hyperlipidemia Obesity, Class II, Bmi 35-39.9 Hiatal Hernia Hypothyroidism Fibromyalgia She was last seen by Thad Vasques CNP April 21, 2023. Noted that she had stopped taking HCTZ and Topamax due to GI upset. Noted that she started taking Cymbalta which she was finding helpful. Today notes she has resumed Topamax for headache, seems to be helping with headaches. Hypothyroidism. TSH (mIU/L) Date Value 09/08/2022 3.780 ) GERD: wthout current complaint. Depression: mood is stable on duloxetine. She notes sinus congestion and drainage, some sinus pressure. Afebrile no other upper respiratory complaints. No sick contacts. Notes she has chronic sinus congestion and drainage. Using antihistamine and nasal steroid. Review of Systems Constitutional: Negative. HENT: Positive for rhinorrhea and sinus pressure. Gastrointestinal: Negative. Neurological: Negative. Psychiatric/Behavioral: Negative. Objective BP 144/84 Pulse 62 Ht 166.4 cm (5' 5.5 ) Wt 100.7 kg (222 lb) SpO2 98% BMI 36.38 kg/m? Physical Exam Vitals and nursing note reviewed. Constitutional: Appearance: Normal appearance. HENT: Head: Normocephalic and atraumatic. Right Ear: Tympanic membrane and ear canal normal. Left Ear: Tympanic membrane and ear canal normal. Nose: Mucosal edema present. Right Sinus: Maxillary sinus tenderness present. Left Sinus: Maxillary sinus tenderness present. Mouth/Throat: Lips: [place]. Mouth: Mucous membranes are moist. Pharynx: Oropharynx is clear. Eyes: Conjunctiva/sclera: Conjunctivae normal. Cardiovascular: Rate and Rhythm: Normal rate and regular rhythm. Heart sounds: Normal heart sounds. Pulmonary: Effort: Pulmonary effort is normal. Breath sounds: Normal breath sounds. Abdominal: General: Bowel sounds are normal. Palpations: Abdomen is soft. Skin: General: Skin is warm and dry. Neurological: General: No focal deficit present. Mental Status: She is alert and oriented to person, place, and time. ALLERGIES Allergen Reactions Atorvastatin Unknown Imitrex [Sumatripta* Intolerance blood pressure elevation Morphine Vomiting severe vomiting Penicillins Rash Ryoljph-Rab-Vtt Red* GI Upset Sumatriptan Other: See Comments Medications buPROPion XL (WELLBUTRIN XL) 300 mg 24 hr tablet Take 1 tablet by mouth once daily. esomeprazole (NEXIUM) 40 mg capsule Take 1 capsule by mouth daily before breakfast. famotidine (PEPCID) 40 mg tablet Take 1 tablet by mouth once daily. DULoxetine (CYMBALTA) 60 mg capsule Take 1 capsule by mouth once daily. loratadine (CLARITIN) 10 mg tablet Take 1 tablet by mouth once daily. fluticasone (FLONASE) 50 mcg/actuation nasal spray Use 1 [place] in each nostril once daily. Lactobacill 46-B.animal-inulin (PROBIOTIC-10, WITH INULIN,) 10 billion cell -100 mg cap Take 400 mg by mouth once daily. collagen, hydrolysate, bovine, (COLLAGEN, HYDR, BOVINE,, BULK,) 100 % powd 1 Scoop twice daily. Cholecalciferol, Vitamin D3, 125 mcg (5,000 unit) cap Take 1 capsule by mouth once daily. PAST MEDICAL HISTORY Diagnosis Date Adjustment disorder with depressed mood Esophageal reflux Hiatal hernia 2021 Low back pain Migraines Social History Tobacco Use Smoking status: Never Smokeless tobacco: Never Vaping Use Vaping Use: Never used Substance Use Topics Alcohol use: Yes Comment: occassionally Drug use: No ASSESSMENT/PLAN: 1. Primary hypertension - ICD9: 401.9, ICD10: I10 (primary diagnosis) Suboptimal control, upper limits of normal and above of late, states she is not feeling too well today. Will bring back in 3 months for recheck. If remains above target add amlodipine 2.5 mg - Encouraged sodium restriction, DASH or Mediterranean diet - Recommend regular aerobic exercise - COMP METABOLIC PANEL - CBC + DIFF 2. Screening for colon cancer - ICD9: V76.51, ICD10: Z12.11 - CONSULT TO GENERAL SURGERY 3. Encounter for screening mammogram for breast cancer - ICD9: V76.12, ICD10: Z12.31 - Encourage monthly BSE - ALAN SCREENING 4. Migraine with aura and without status migrainosus, not intractable - ICD9: (more content not included)... [facility] 07-08-2023 Miscellaneous Notes Patient has been identified by name and date of : Yes, Provider Dr. Rooney Date 07/08/23 Time 10:52 am Patient phones for refill(s): Requested Prescriptions Pending Prescriptions Disp Refills buPROPion XL (WELLBUTRIN XL) 300 mg 24 hr tablet 90 tablet 2 Sig: Take 1 tablet by mouth once daily. Date of last office visit in primary care: 04/21/2023 Date of next office visit in primary care: 07/26/2023 Last 2 Encounter Wt Readings: Date: Wt: 04/21/2023 100.7 kg (222 lb) 03/23/2023 99.8 kg (220 lb) Previous labs/tests for medication: Not applicable Thank you. Rosaline Pierson LPN. documented in this encounter [facility] 06-03-2023 Miscellaneous Notes Called the pharmacy and this rx was ran through pts insurance for 90 with no PA needed. PA COMPLETED ELECTRONICALLY TWICE AND CAN BACK ERROR BOTH TIMES. PA NOW COMPLETED VIA [employer]. JACKY WOLFE ([place]: [id number]) - [id number] Esomeprazole Magnesium 40MG dr thomas Status: PA Request Created: June 01, 2023 [id number] Sent: October 4th, 2023 Electronic PA completed for esomeprazole. documented in this encounter [facility] 04-21-2023 History of Present illness Narrative SUBJECTIVE Jacky Wolfe is a 53 year old female here today for a check up on her medical problems. Chief Complaint Patient presents with: Blood Pressure: Patient states that she stopped taking the HCTZ and topamax due to GI upset. Did mention that she started taking cymbalta and has really helped HPI Jacky Wolfe is a 53 year old female established patient. Presents today for a 4 week follow up on blood pressure. Started HCTZ for bp. She has stopped this. Blood pressure good today. Started Topamax for headaches. She stopped that. Back on Cymbalta, helping. Overall feeling okay. Her medications were reviewed today and her list is now up to date. Medications Current Outpatient Medications Medication Sig fluticasone (FLONASE) 50 mcg/actuation nasal spray Use 1 [place] in each nostril once daily. buPROPion XL (WELLBUTRIN XL) 300 mg 24 hr tablet Take 1 tablet by mouth once daily. Lactobacill 46-B.animal-inulin (PROBIOTIC-10, WITH INULIN,) 10 billion cell -100 mg cap Take 400 mg by mouth once daily. collagen, hydrolysate, bovine, (COLLAGEN, HYDR, BOVINE,, BULK,) 100 % powd 1 Scoop twice daily. esomeprazole (NEXIUM) 40 mg capsule Take 1 capsule by mouth daily before breakfast. Cholecalciferol, Vitamin D3, 125 mcg (5,000 unit) cap Take 1 capsule by mouth once daily. famotidine (PEPCID) 40 mg tablet Take 1 tablet by mouth once daily. DULoxetine (CYMBALTA) 60 mg capsule Take 1 capsule by mouth once daily. loratadine (CLARITIN) 10 mg tablet Take 1 tablet by mouth once daily. No current facility-administered medications for this visit. ALLERGIES Allergen Reactions Atorvastatin Unknown Imitrex [Sumatripta* Intolerance blood pressure elevation Morphine Vomiting severe vomiting Penicillins Rash Jikkknn-Ycw-Jsa Red* GI Upset Sumatriptan Other: See Comments ACTIVE PROBLEM LIST Fibromyalgia - 09/23/2022 Obesity, Class II, Bmi 35-39.9 - 09/08/2022 Hiatal Hernia - 09/08/2022 Hypothyroidism - 09/08/2022 Hyperlipidemia - 02/09/2009 11.2.1 Cervicogenic headache [ M99] [784.0] - 11/16/2008 Migraine With Aura - 11/16/2008 Mild Episode of Recurrent Major Depressive Disorder (Hcc) - 01/19/2007 Esophageal Reflux - 10/05/2006 Allergic Rhinitis - 10/05/2006 Degeneration of Lumbar Or Lumbosacral Intervertebral Disc - 03/12/2004 Social History Tobacco Use Smoking status: Never Smokeless tobacco: Never Vaping Use Vaping Use: Never used Substance Use Topics Alcohol use: Yes Comment: occassionally Drug use: No Review of Systems Respiratory: Negative. Cardiovascular: Negative. OBJECTIVE BP 132/84 Pulse 66 Wt 222 lb (100.7kg) SpO2 98% Physical Exam Vitals and nursing note reviewed. Constitutional: General: She is awake. She is not in acute distress. Appearance: Normal appearance. She is well-developed and well-groomed. She is not ill-appearing, toxic-appearing or diaphoretic. HENT: Head: Normocephalic. Right Ear: External ear normal. Left Ear: External ear normal. Nose: Nose normal. Eyes: General: Vision grossly intact. Conjunctiva/sclera: Conjunctivae normal. Pupils: Pupils are equal, round, and reactive to light. Neck: Vascular: No JVD. Trachea: Trachea normal. Cardiovascular: Rate and Rhythm: Normal rate and regular rhythm. Pulses: Normal pulses. Heart sounds: Normal heart sounds. No murmur heard. Pulmonary: Effort: Pulmonary effort is normal. No accessory muscle usage, prolonged expiration or respiratory distress. Breath sounds: Normal breath sounds. Musculoskeletal: Cervical back: Neck supple. Skin: General: Skin is warm and dry. Capillary Refill: Capillary refill takes less than 2 seconds. Neurological: General: No focal deficit present. Mental Status: She is alert and oriented to person, place, and time. Mental status is at baseline. Psychiatric: Attention and Perception: Attention and perception normal. Mood and Affect: Mood and affect normal. Speech: Speech normal. Behavior: Behavior normal. Behavior is cooperative. Thought Content: Thought content normal. Cognition and Memory: Cognition and memory normal. Judgment: Judgment normal. ASSESSMENT/PLAN: 1. Primary hypertension - ICD9: 401.9, ICD10: I10 (primary diagnosis) stable - Controlled today, has not had HCTZ due to it made her not feel well - Stop hydrochlorothiazide - Recommend home blood pressure monitoring, to bring results to next visit - Encouraged sodium restriction, DASH or Mediterranean diet - Recommend regular aerobic exercise 2. Fibromyalgia - ICD9: 729.1, ICD10: M79.7 stable - DULOXETINE 60 MG CAPSULE,DELAYED RELEASE 3. Migraine with aura and without status migrainosus, not intractable - ICD9: 346.00, ICD10: G43.109 Stop Topamax due to side effects. Improving. Overall stable. Portions of this note have been entered by ancillary staff. I have reviewed and when necessary edited, so that they are an adequate record of my encounter with this patient Please note that parts of this document were created using voice recognition software and therefore may contain grammatical errors. Patient verbalizes understanding of instructions from today's visit and in agreement with treatment plan. Questions answered. Agrees to call the office if questions, concerns of issues with acute symptoms not improving or if they worsen. See diagnoses and orders for additional plan(s). Allergies and medications were reviewed, list was updated, and refills given if needed. Past medical, surgical, social, and family history reviewed and updated as appropriate. Encouraged proper diet & exercise as well as compliance with taking medications. Age-appropriate health preventative measures were discussed. Return in about 4 months (around 08/21/2023) for Follow up on chronic conditions and medications.. MANUELA Guerrero documented in this encounter [facility] 03-17-2023 Miscellaneous Notes Patient has been identified by name and date of : Yes, Provider Avni Date 03-17-23 Time 3:04 pm Pharmacy phones for refill(s): Requested Prescriptions Pending Prescriptions Disp Refills fluticasone (FLONASE) 50 mcg/actuation nasal spray 1 Each 1 Sig: Use 1 [place] in each nostril once daily. Date of last office visit with pcp: 02-16-23. Next appt: 03-19-23 Last 2 Encounter Wt Readings: Date: Wt: 02/16/2023 98.4 kg (217 lb) 09/23/2022 103.5 kg (228 lb 1.6 oz) Previous labs/tests for medication: Blood Pressure: BUN (mg/dL) Date Value 09/08/2022 15 10/02/2016 15 Sodium (mmol/L) Date Value 09/08/2022 141 10/02/2016 138 Last 1 Encounter BP Readings: Date: BP: 02/16/2023 168/72 Liver Function: ALT (U/L) Date Value 09/08/2022 22 10/02/2016 27 AST (U/L) Date Value 09/08/2022 21 10/02/2016 23 Please advise. Thank you. Corwin Hernandez RN documented in this encounter [facility] 03-17-2023 Miscellaneous Notes Patient has been identified by name and date of : Yes, Provider [facility] Date 03-17-23 Time 3:01 Pharmacy phones for refill(s): Requested Prescriptions Pending Prescriptions Disp Refills fluticasone (FLONASE) 50 mcg/actuation nasal spray 1 Each 1 Sig: Use 1 [place] in each nostril once daily. Date of last office visit with pcp: 02-16-23. 03-19-23 Last 2 Encounter Wt Readings: Date: Wt: 02/16/2023 98.4 kg (217 lb) 09/23/2022 103.5 kg (228 lb 1.6 oz) Previous labs/tests for medication: Blood Pressure: BUN (mg/dL) Date Value 09/08/2022 15 10/02/2016 15 Sodium (mmol/L) Date Value 09/08/2022 141 10/02/2016 138 Last 1 Encounter BP Readings: Date: BP: 02/16/2023 168/72 Liver Function: ALT (U/L) Date Value 09/08/2022 22 10/02/2016 27 AST (U/L) Date Value 09/08/2022 21 10/02/2016 23 Please advise. Thank you. Corwin Hernandez RN documented in this encounter [facility] 02-16-2023 History of Present illness Narrative SUBJECTIVE Jacky Wolfe is a 52 year old female here today for acute concern. Chief Complaint Patient presents with: Headache: for about 1 month points to area above eyes and questions if related to allergies. Refill Request HPI Jacky Wolfe is a 52 year old female established patient who presents today acutely for concerns of a headache. Notes prior allergies to Imitrex. Feels like prior migraines. Headache has been daily for the last month. Taking Claritin for allergies and not helping. Aura of black spots prior to headache. Sensitive to light and sound. Tried NSAIDs, tylenol, not helping. Helps take off edge. Not the worst headache ever. Some nausea. Has had Toradol in the past. Prior to this had not had a bad headache in awhile. No possibility of . Blood pressure has been up some. Her medications were reviewed today and her list is now up to date. Medications Current Outpatient Medications Medication Sig buPROPion XL (WELLBUTRIN XL) 300 mg 24 hr tablet Take 1 tablet by mouth once daily. Lactobacill 46-B.animal-inulin (PROBIOTIC-10, WITH INULIN,) 10 billion cell -100 mg cap Take 400 mg by mouth once daily. loratadine (CLARITIN) 10 mg tablet Take 10 mg by mouth once daily. collagen, hydrolysate, bovine, (COLLAGEN, HYDR, BOVINE,, BULK,) 100 % powd 1 Scoop twice daily. esomeprazole (NEXIUM) 40 mg capsule Take 1 capsule by mouth daily before breakfast. Cholecalciferol, Vitamin D3, 125 mcg (5,000 unit) cap Take 1 capsule by mouth once daily. fluticasone (FLONASE) 50 mcg/actuation nasal spray Use 1 [place] in each nostril once daily. famotidine (PEPCID) 40 mg tablet Take 1 tablet by mouth once daily. propranolol ER (INDERAL LA) 80 mg 24 hr capsule Take 1 capsule by mouth once daily. DULoxetine (CYMBALTA) 60 mg capsule Take 1 capsule by mouth once daily. No current facility-administered medications for this visit. ALLERGIES Allergen Reactions Atorvastatin Unknown Imitrex [Sumatripta* Intolerance blood pressure elevation Morphine Vomiting severe vomiting Penicillins Rash Bsjbzrp-Uzh-Ytb Red* GI Upset Sumatriptan Other: See Comments ACTIVE PROBLEM LIST Fibromyalgia - 09/23/2022 Obesity, Class II, Bmi 35-39.9 - 09/08/2022 Hiatal Hernia - 09/08/2022 Hypothyroidism - 09/08/2022 Hyperlipidemia - 02/09/2009 11.2.1 Cervicogenic headache [ M99] [784.0] - 11/16/2008 Migraine With Aura - 11/16/2008 Mild Episode of Recurrent Major Depressive Disorder (Hcc) - 01/19/2007 Esophageal Reflux - 10/05/2006 Allergic Rhinitis - 10/05/2006 Degeneration of Lumbar Or Lumbosacral Intervertebral Disc - 03/12/2004 Social History Tobacco Use Smoking status: Never Smokeless tobacco: Never Vaping Use Vaping Use: Never used Substance Use Topics Alcohol use: Yes Comment: occassionally Drug use: No Review of Systems Respiratory: Negative. Cardiovascular: Negative. Neurological: Positive for headaches. Negative for dizziness, tremors, seizures, syncope, facial asymmetry, speech difficulty, weakness, light-headedness and numbness. OBJECTIVE BP 168/72 Pulse 65 Wt 217 lb (98.4kg) SpO2 98% Physical Exam Vitals and nursing note reviewed. Constitutional: General: She is awake. She is not in acute distress. Appearance: Normal appearance. She is well-developed and well-groomed. She is not ill-appearing, toxic-appearing or diaphoretic. HENT: Head: Normocephalic. Right Ear: External ear normal. Left Ear: External ear normal. Nose: Nose normal. Eyes: General: Vision grossly intact. Conjunctiva/sclera: Conjunctivae normal. Pupils: Pupils are equal, round, and reactive to light. Neck: Vascular: No JVD. Trachea: Trachea normal. Cardiovascular: Rate and Rhythm: Normal rate and regular rhythm. Pulses: Normal pulses. Heart sounds: Normal heart sounds. No murmur heard. Pulmonary: Effort: Pulmonary effort is normal. No accessory muscle usage, prolonged expiration or respiratory distress. Breath sounds: Normal breath sounds. Musculoskeletal: Cervical back: Neck supple. Skin: General: Skin is warm and dry. Capillary Refill: Capillary refill takes less than 2 seconds. Neurological: General: No focal deficit present. Mental Status: She is alert and oriented to person, place, and time. Mental status is at baseline. Cranial Nerves: Cranial nerves 2-12 are intact. Sensory: Sensation is intact. Motor: Motor function is intact. Coordination: Coordination is intact. Gait: Gait is intact. Psychiatric: Attention and Perception: Attention and perception normal. Mood and Affect: Mood and affect normal. Speech: Speech normal. Behavior: Behavior normal. Behavior is cooperative. Thought Content: Thought content normal. Cognition and Memory: Cognition and memory normal. Judgment: Judgment normal. ASSESSMENT/PLAN: 1. Intractable migraine with aura with status migrainosus - ICD9: 346.03, ICD10: G43.111 (primary diagnosis) No red flags on exam, sounds like worsening headaches/migraines, not a candidate for triptan use due to elevated blood pressure and high cholesterol levels (Triptans should not be used by those who have a past history of, or risk factors, for heart disease, high blood pressure, high cholesterol, angina, peripheral vascular disease, impaired liver function, stroke or diabetes.). Will give Toradol in office today, start propranolol to help blood pressure and act as a preventative. - KETOROLAC 60 MG/2 ML INTRAMUSCULAR SOLUTION - PROPRANOLOL ER 80 MG CAPSULE,24 HR,EXTENDED RELEASE 2. Hyperlipidemia, unspecified hyperlipidemia type - ICD9: 272.4, ICD10: E78.5 Triglycerides improved on labs from work. 3. Elevated blood pressure reading in office without diagnosis of hypertension - ICD9: 796.2, ICD10: R03.0 Likely PreHypertension or Transient BP elevation - Encouraged dietary sodium restriction/DASH diet - Recommended regular aerobic exercise. - Recommend home blood pressure monitoring, to bring results in on next visit - Encouraged avoidance of excessive alcohol intake - Discussed need and benefit for weight loss. - Follow up in 1 month for BP recheck. - Recheck in 4 weeks, sooner if needed. - Reviewed risks of HTN and principles of treatment - Goal of BP <130/80 Portions of this note have been entered by ancillary staff. I have reviewed and when necessary edited, so that they are an adequate record of my encounter with this patient Please note that parts of this document were created using voice recognition software and therefore may contain grammatical errors. Patient verbalizes understanding of instructions from today's visit and in agreement with treatment plan. Questions answered. Agrees to call the office if questions, concerns of issues with acute symptoms not improving or if they worsen. See diagnoses and orders for additional plan(s). Allergies and medications were reviewed, list was updated, and refills given if needed. Past medical, surgical, social, and family history reviewed and updated as appropriate. Encouraged proper diet & exercise as well as compliance with taking medications. Age-appropriate health preventative measures were discussed. Medical Decision Making: Problems: Moderate: 1+ chronic illnesses with change Risk: Moderate: Drug management Medical Decision Making Level: 4 - Moderate Return in about 4 weeks (around 03/16/2023) for blood pressure check. MANUELA Guerrero documented in this encounter [facility] 02-15-2023 Miscellaneous Notes Last office visit: 09/23/22 Next appointment scheduled: No future appointments scheduled at this time. Patient phones requesting refills as follows: Requested Prescriptions Pending Prescriptions Disp Refills DULoxetine (CYMBALTA) 60 mg capsule 30 capsule 3 Sig: Take 1 capsule by mouth once daily. Start after 1 month on 30 mg dose Gabriella Velazquez LPN documented in this encounter [facility] 11-24-2022 History of Present illness Narrative Radiology Service Progress Note PATIENT NAME: Jacky Wolfe DATE OF SERVICE: November 24, 2022 TIME: 2:19 PM PATIENT IDENTITY VERIFICATION COMPLETED USING TWO (2) IDENTIFIERS: Name and Date of confirmed by patient verbally. FALL SCREENING: Has the patient had 2 falls in the last year or 1 fall with injury or currently using an Ambulatory Assistive Device (Walker, Cane, Wheelchair, Crutches, etc.)? No PATIENT GENDER DATA: Female. status: : No status: NO. PATIENT RELEVANT IMPLANT DATA REVIEWED: Not Applicable RADIOLOGY DEPARTMENT: Mammography PERIPHERAL IV DATA: Not applicable SIGNED BY: Susanne Marroquin November 24, 2022 2:19 PM documented in this encounter [facility] 10-23-2022 Miscellaneous Notes October 26, 2022 PID: [id number] Jacky [address] [place] [address] Dear Nissa Aiden, Your prior imaging studies have arrived and been compared to your current study performed on 10/12/2022 which showed a possible finding that requires additional imaging studies for a complete evaluation. Most such findings are probably benign (not cancer). If you have a healthcare provider who ordered/prescribed your screening mammogram: Please call [phone] or [phone]: [phone] to schedule an appointment for your additional imaging (if you have not already done so). If you DO NOT have a healthcare provider (ie you did not have an order/prescription for your screening mammogram): Please call to schedule an appointment for your additional imaging (if you have not already done so). You must have an order/prescription from your physician when calling to schedule your appointment. If your order/prescription is not electronic, you must bring the hard copy with you on the day of your exam to avoid delays. Your imaging studies and reports are kept on file at [facility] as part of your permanent medical record, and are available for your continuing care. Thank you for allowing us to help in meeting your health care needs. Sincerely, Dr. Adams Interpreting Radiologist [facility] (compared needs [facility]) documented in this encounter [facility] 10-13-2022 Miscellaneous Notes October 14, 2022 PID: [id number] Jacky Wolfe [address] [place] [address] Dear Ms. Churchdio, Your breast imaging exam 10/12/2022 showed a possible finding that may require additional imaging studies for a complete evaluation. However, we recognize you have prior imaging studies at facilities other than [facility], and would like the opportunity to compare your recent imaging with those studies to evaluate for any change. At this time, we have requested your prior studies. If/when your prior studies arrive, a final report will be sent to your healthcare provider and/or you. In addition, you will receive a new result letter and or phone call If you need additional imaging. If we do not receive prior studies within 30 days of your exam, you will receive a reminder letter and or phone call to schedule your diagnostic imaging. Your imaging studies and reports are kept on file at [facility] as part of your permanent medical record, and are available for your continuing care. If you have any questions or concerns, please call [phone]. Thank you for choosing [facility] for your imaging needs. Sincerely, Dr. Adams Interpreting Radiologist [facility] ([employer]) documented in this encounter [facility] 10-12-2022 History of Present illness Narrative Radiology Service Progress Note PATIENT NAME: Jacky Wolfe DATE OF SERVICE: October 12, 2022 TIME: 1:15 PM PATIENT IDENTITY VERIFICATION COMPLETED USING TWO (2) IDENTIFIERS: Name and Date of confirmed by patient verbally. FALL SCREENING: Has the patient had 2 falls in the last year or 1 fall with injury or currently using an Ambulatory Assistive Device (Walker, Cane, Wheelchair, Crutches, etc.)? No PATIENT GENDER DATA: Female. status: : No status: NO. PATIENT RELEVANT IMPLANT DATA REVIEWED: Not Applicable RADIOLOGY DEPARTMENT: Mammography PERIPHERAL IV DATA: Not applicable SIGNED BY: RT Pasquale(R) October 12, 2022 1:15 PM documented in this encounter [facility] 09-23-2022 History of Present illness Narrative CHIEF COMPLAINT: Patient presents with: Physical HISTORY: Jacky Wolfe is a 52 year old female who presents 09/23/2022 for her Yearly Physical Exam. They are here today for a wellness exam. Does wear a seatbelt when riding in a car. Does have smoke detectors and a carbon monoxide detector in the home. Is able to complete ADL's with independence. Last visit she was seen for issues with GERD. We added Pepcid to her Nexium. Better but still noticing issues. Fibromyalgia is acting up. Has been off of Cymbalta because of not having insurance but has it now. Other Providers: Krista for general surgery Depression Screen Q1: Over the past two weeks, have you felt down, depressed or hopeless? Yes Q2: Over the past two weeks, have you felt little interest or pleasure in doing things? Yes Home status: Lives with and granddaughter, age 9 Current job: [employer] Current exercise habits: active with work Dietary habits: trying to eat health Hearing difficulties: no Safe in current home environment: Yes Tobacco: no ETOH: yes, 1-2 in the evening [employer] History: LMP: No LMP recorded. Patient has had a hysterectomy. Are periods regular? N/A Any concerns about her periods? N/A Last Pap: No results found for: CYTO Hx of Abnml Pap: no Hx Breast Bx: no Family Hx Breast CA: no Family Hx Colon CA: no Past Medical History: PAST MEDICAL HISTORY Diagnosis Date Adjustment disorder with depressed mood Esophageal reflux Hiatal hernia 2021 Low back pain Migraines Family Medical History: FAMILY HISTORY Problem Relation Age of Onset Thyroid Mother Heart Mother Psychiatry Mother depression Hypertension Mother Ischemic Heart Disease Mother Lipids Mother Diabetes Mother Headache Mother Heart Father Psychiatry Father depression Hypertension Father Lipids Father Diabetes Father Headache Father Psychiatry Maternal Grandmother depression Psychiatry Daughter depression Social History: Social History Tobacco Use Smoking status: Never Smokeless tobacco: Never Vaping Use Vaping Use: Never used Substance Use Topics Alcohol use: Yes Comment: occassionally Drug use: No Allergies: ALLERGIES Allergen Reactions Atorvastatin Unknown Imitrex [Sumatripta* Intolerance blood pressure elevation Morphine Vomiting severe vomiting Penicillins Rash Kblsboh-Drb-Adw Red* GI Upset Sumatriptan Other: See Comments Medications: Current Outpatient Medications Medication Sig Lactobacill 46-B.animal-inulin (PROBIOTIC-10, WITH INULIN,) 10 billion cell -100 mg cap Take 400 mg by mouth once daily. loratadine (CLARITIN) 10 mg tablet Take 10 mg by mouth once daily. collagen, hydrolysate, bovine, (COLLAGEN, HYDR, BOVINE,, BULK,) 100 % powd 1 Scoop twice daily. esomeprazole (NEXIUM) 40 mg capsule Take 1 capsule by mouth daily before breakfast. Cholecalciferol, Vitamin D3, 125 mcg (5,000 unit) cap Take 1 capsule by mouth once daily. fluticasone (FLONASE) 50 mcg/actuation nasal spray Use 1 [place] in each nostril once daily. famotidine (PEPCID) 40 mg tablet Take 1 tablet by mouth once daily. DULoxetine (CYMBALTA) 30 mg capsule Take 1 capsule by mouth once daily. [START ON 10/19/2022] DULoxetine (CYMBALTA) 60 mg capsule Take 1 capsule by mouth once daily. Start after 1 month on 30 mg dose sucralfate (CARAFATE) 1 gram tablet Take 1 tablet by mouth before meals and at bedtime. buPROPion XL (WELLBUTRIN XL) 300 mg 24 hr tablet Take 1 tablet by mouth once daily. No current facility-administered medications for this visit. Chronic Problem List: ACTIVE PROBLEM LIST Fibromyalgia - 09/23/2022 Obesity, Class II, Bmi 35-39.9 - 09/08/2022 Hiatal Hernia - 09/08/2022 Hypothyroidism - 09/08/2022 Hyperlipidemia - 02/09/2009 11.2.1 Cervicogenic headache [ M99] [784.0] - 11/16/2008 1.2 Migraine with aura - 11/16/2008 Migraine Without Aura, Without Mention of Intractable Migraine Without Mention of Status Migrainosus - 10/27/2007 Mild Episode of Recurrent Major Depressive Disorder (Hcc) - 01/19/2007 Esophageal Reflux - 10/05/2006 Allergic Rhinitis - 10/05/2006 Degeneration of Lumbar Or Lumbosacral Intervertebral Disc - 03/12/2004 Review of Systems Review of Systems Constitutional: Negative. Respiratory: Negative. Cardiovascular: Negative. Gastrointestinal: Positive for abdominal pain. Reflux Musculoskeletal: Positive for arthralgias and myalgias. Psychiatric/Behavioral: Positive for dysphoric mood. OBJECTIVE BP 136/82 Pulse 71 Temp (Src) 98.2 (Left Tympanic) Resp 16 Ht 5' 5.5 (1.66m) Wt 228 lb 1.6 oz (103.5kg) SpO2 98% BMI 37.37 kg/(m^2). Physical Exam Vitals and nursing note reviewed. Constitutional: General: She is awake. She is not in acute distress. Appearance: Normal appearance. She is well-developed and well-groomed. She is not ill-appearing, toxic-appearing or diaphoretic. HENT: Head: Normocephalic. Right Ear: External ear normal. Left Ear: External ear normal. Nose: Nose normal. Eyes: General: Vision grossly intact. Conjunctiva/sclera: Conjunctivae normal. Pupils: Pupils are equal, round, and reactive to light. Neck: Vascular: No JVD. Trachea: Trachea normal. Cardiovascular: Rate and Rhythm: Normal rate and regular rhythm. Pulses: Normal pulses. Heart sounds: Normal heart sounds. No murmur heard. Pulmonary: Effort: Pulmonary effort is normal. No accessory muscle usage, prolonged expiration or respiratory distress. Breath sounds: Normal breath sounds. Musculoskeletal: Cervical back: Neck supple. Skin: General: Skin is warm and dry. Capillary Refill: Capillary refill takes less than 2 seconds. Neurological: General: No focal deficit present. Mental Status: She is alert and oriented to person, place, and time. Mental status is at baseline. Psychiatric: Attention and Perception: Attention and perception normal. Mood and Affect: Mood and affect normal. Speech: Speech normal. Behavior: Behavior normal. Behavior is cooperative. Thought Content: Thought content normal. Cognition and Memory: Cognition and memory normal. Judgment: Judgment normal. ASSESSMENT/PLAN: 1. Wellness examination - ICD9: V70.0, ICD10: Z00.00 (primary diagnosis) - Counseled on healthy diet and regular exercise - Calcium intake with supplements or by diet of 1000 mg/day for under 50, 0772-8069 mg/day for 50+ 2. Gastroesophageal reflux disease without esophagitis - ICD9: 530.81, ICD10: K21.9 - Discussed lifestyle modifications including losing weight, limiting caffeine, no meals three hours before sleep, and head of bed elevation - Begin treatment with Carafate - Continue treatment with PPI/H2 stevo 3. Mild episode of recurrent major depressive disorder (HCC) - ICD9: 296.31, ICD10: F33.0 - BUPROPION XL 300 MG 24 HR TAB 4. Hyperlipidemia, unspecified hyperlipidemia type - ICD9: 272.4, ICD10: E78.5 - newly addressed - Encouraged following a low fat, low cholesterol diet. - Discussed the benefits of regular aerobic exercise and weight loss. - Encouraged following a low carbohydrate, healthy oil intake diet. 5. Fibromyalgia - ICD9: 729.1, ICD10: M79.7 Restart Cymbalta. 6. Encounter for screening mammogram for breast cancer - ICD9: V76.12, ICD10: Z12.31 - ALAN SCREENING 7. Screening for colon cancer - ICD9: V76.51, ICD10: Z12.11 Wants to wait for this, interested in Cologuard. 8. Obesity, Class II, BMI 35-39.9 - ICD9: 278.00, ICD10: E66.9 - BUPROPION XL 300 MG 24 HR TAB Wellness exam completed. Health maintenance reviewed and updated. Chronic conditions and medications reviewed and updated as needed. Encouraged regular physical activity as tolerated, Healthy diet, and health promoting lifestyle. Encouraged regular eye doctor and dental visits. Portions of this note have been entered by ancillary staff. I have reviewed and when necessary edited, so that they are an adequate record of my encounter with this patient Please note that parts of this document were created using voice recognition software and therefore may contain grammatical errors. Patient verbalizes understanding of instructions from today's visit and in agreement with treatment plan. Questions answered. Agrees to call the office if questions, concerns or issues with acute symptoms not improving or if they worsen. See diagnoses and orders for additional plan(s). Allergies and medications were reviewed, list was updated, and refills given if needed. Past medical, surgical, social, and family history reviewed and updated as appropriate. Encouraged proper diet & exercise as well as compliance with taking medications. Age-appropriate health preventative measures were discussed. Return in about 8 weeks (around 11/18/2022) for recheck on new medication.. MANUELA Guerrero documented in this encounter [facility] 09-08-2022 History of Present illness Narrative SUBJECTIVE Jacky Wolfe is a 52 year old female here today to establish. Chief Complaint Patient presents with: Abdominal Pain HPI Jacky Wolfe is a 52 year old female who is a new patient to our office. She presents today due to concerns of GERD and hiatal hernia. She has had a history of issues with this for at least he last 10 years. Previously was seeing Dr. Jones as PCP before he retired. She saw general surgery this morning and Dr. Velasco did not feel hernia surgery would help. He recommend weight loss, consider bariatric surgery. She is not really interested in this option. She would like to try and lose weight by other means. Her symptoms are exacerbated with bending and stooping. is not very supportive with her working on diet and weight loss. Started collagen and it helped some. Has not tried medications for weight loss in the past. does most of the cooking too. Very active with work but no regular exercise routine. Off and on issues with constipation and diarrhea. Takes colace and helps. History of hypothyroid, fibromyalgia. Prior extensive work up has included esophageal manometry which was normal, EGD with a 48-hour pH probe which showed her DeMeester score to be 22.8, EGDs which showed mild chronic inflammation at the GE junction, an upper GI series which was normal with a barium capsule entering the stomach without difficulty. She feels depressed about her current situation. Has a history of depression. No mention of thoughts of self harm, harming others or suicide. Her medications were reviewed today and her list is now up to date. Medications Current Outpatient Medications Medication Sig Lactobacill 46-B.animal-inulin (PROBIOTIC-10, WITH INULIN,) 10 billion cell -100 mg cap Take 400 mg by mouth once daily. loratadine (CLARITIN) 10 mg tablet Take 10 mg by mouth once daily. collagen, hydrolysate, bovine, (COLLAGEN, HYDR, BOVINE,, BULK,) 100 % powd 1 Scoop twice daily. Cholecalciferol, Vitamin D3, 125 mcg (5,000 unit) cap Take 1 capsule by mouth once daily. esomeprazole (NEXIUM) 40 mg capsule Take 1 capsule by mouth daily before breakfast. fluticasone (FLONASE) 50 mcg/actuation nasal spray Use 1 [place] in each nostril once daily. famotidine (PEPCID) 40 mg tablet Take 1 tablet by mouth once daily. buPROPion XL (WELLBUTRIN XL) 150 mg 24 hr tablet Take 1 tablet by mouth once daily. No current facility-administered medications for this visit. ALLERGIES Allergen Reactions Atorvastatin Unknown Imitrex [Sumatripta* Intolerance blood pressure elevation Morphine Vomiting severe vomiting Penicillins Rash Mkogdcn-Fgp-Sda Red* GI Upset Sumatriptan Other: See Comments ACTIVE PROBLEM LIST Obesity, Class II, Bmi 35-39.9 - 09/08/2022 Hiatal Hernia - 09/08/2022 Hypothyroidism - 09/08/2022 Other and Unspecified Hyperlipidemia - 02/09/2009 11.2.1 Cervicogenic headache [ M99] [784.0] - 11/16/2008 1.2 Migraine with aura - 11/16/2008 Migraine Without Aura, Without Mention of Intractable Migraine Without Mention of Status Migrainosus - 10/27/2007 Mild Episode of Recurrent Major Depressive Disorder (Hcc) - 01/19/2007 Esophageal Reflux - 10/05/2006 Allergic Rhinitis - 10/05/2006 Degeneration of Lumbar Or Lumbosacral Intervertebral Disc - 03/12/2004 Social History Tobacco Use Smoking status: Never Smokeless tobacco: Never Vaping Use Vaping Use: Never used Substance Use Topics Alcohol use: Yes Comment: occassionally Drug use: No Review of Systems Respiratory: Negative. Cardiovascular: Negative. Gastrointestinal: Positive for abdominal distention, constipation, diarrhea and nausea. Negative for vomiting. OBJECTIVE BP 118/84 Pulse 75 Temp (Src) 98.3 (Temporal) Wt 223 lb (101.2kg) Physical Exam Vitals and nursing note reviewed. Constitutional: General: She is awake. She is not in acute distress. Appearance: Normal appearance. She is well-developed and well-groomed. She is obese. She is not ill-appearing, toxic-appearing or diaphoretic. HENT: Head: Normocephalic. Right Ear: External ear normal. Left Ear: External ear normal. Nose: Nose normal. Eyes: General: Vision grossly intact. Conjunctiva/sclera: Conjunctivae normal. Pupils: Pupils are equal, round, and reactive to light. Neck: Vascular: No JVD. Trachea: Trachea normal. Cardiovascular: Rate and Rhythm: Normal rate and regular rhythm. Pulses: Normal pulses. Heart sounds: Normal heart sounds. No murmur heard. Pulmonary: Effort: Pulmonary effort is normal. No accessory muscle usage, prolonged expiration or respiratory distress. Breath sounds: Normal breath sounds. Musculoskeletal: Cervical back: Neck supple. Skin: General: Skin is warm and dry. Capillary Refill: Capillary refill takes less than 2 seconds. Neurological: General: No focal deficit present. Mental Status: She is alert and oriented to person, place, and time. Mental status is at baseline. Psychiatric: Attention and Perception: Attention and perception normal. Mood and Affect: Mood and affect normal. Speech: Speech normal. Behavior: Behavior normal. Behavior is cooperative. Thought Content: Thought content normal. Cognition and Memory: Cognition and memory normal. Judgment: Judgment normal. ASSESSMENT/PLAN: 1. Gastroesophageal reflux disease without esophagitis - ICD9: 530.81, ICD10: K21.9 (primary diagnosis) Seems to be worsening, symptoms more bothersome - Discussed lifestyle modifications including losing weight, limiting caffeine, no meals three hours before sleep, and head of bed elevation - Begin treatment with Pepcid and Nexium - Add Carafate if symptoms persist Keep follow up as scheduled for an update - ESOMEPRAZOLE MAGNESIUM 40 MG CAPSULE,DELAYED RELEASE - FAMOTIDINE 40 MG TABLET 2. Hiatal hernia - ICD9: 553.3, ICD10: K44.9 Work on weight loss. 3. Obesity, Class II, BMI 35-39.9 - ICD9: 278.00, ICD10: E66.9 Check labs for metabolic issues, work on lifestyle, trial Wellbutrin. Treat hypothyroid if indicated. - HGB A1C - BUPROPION XL 150 MG TAB 4. Hypothyroidism, unspecified type - ICD9: 244.9, ICD10: E03.9 - check TSH today - TSH BLD 5. Mild episode of recurrent major depressive disorder (HCC) - ICD9: 296.31, ICD10: F33.0 - BUPROPION XL 150 MG TAB 6. Seasonal allergic rhinitis, unspecified trigger - ICD9: 477.9, ICD10: J30.2 - FLUTICASONE PROPIONATE 50 MCG/ACTUATION NASAL SPRAY,SUSPENSION 7. Encounter for therapeutic drug monitoring - ICD9: V58.83, ICD10: Z51.81 - CBC + DIFF - COMP METABOLIC PANEL 8. Screening for lipid disorders - ICD9: V77.91, ICD10: Z13.220 - LIPID PANEL, NONFASTING Portions of this note have been entered by ancillary staff. I have reviewed and when necessary edited, so that they are an adequate record of my encounter with this patient Please note that parts of this document were created using voice recognition software and therefore may contain grammatical errors. Patient verbalizes understanding of instructions from today's visit and in agreement with treatment plan. Questions answered. Agrees to call the office if questions, concerns of issues with acute symptoms not improving or if they worsen. See diagnoses and orders for additional plan(s). Allergies and medications were reviewed, list was updated, and refills given if needed. Past medical, surgical, social, and family history reviewed and updated as appropriate. Encouraged proper diet & exercise as well as compliance with taking medications. Age-appropriate health preventative measures were discussed. Medical Decision Making: Problems: Moderate: 1+ chronic illnesses with change Data: Unique test(s) ordered: 3+ Risk: Moderate: Drug management Medical Decision Making Level: 4 - Moderate Return if symptoms worsen or fail to improve, for Keep next scheduled appointment.. MANUELA Guerrero documented in this encounter [facility] 09-08-2022 History of Present illness Narrative HISTORY AND PHYSICAL Jacky Wolfe 1970 REFERRING PHYSICIAN: No ref. provider found CHIEF COMPLAINT: Consult (Hiatal hernia) HPI: The patient is a 52 year old female with a complaint of gastroesophageal reflux disease. This patient has had a rather exhaustive work-up for her reflux. She has had esophageal manometry completed at [facility] which was normal. She has had an EGD with a 48-hour pH probe which showed her DeMeester score to be 22.8. She has had EGDs which showed mild chronic inflammation at the GE junction. She had a medium size hiatal hernia. In addition she has had an upper GI series which was normal with a barium capsule entering the stomach without difficulty. She has better than a 10-year history of gastroesophageal reflux disease and has been on chronic Nexium for this. She states she really is unable to eat much of anything. Whenever she is trying to work bending and stooping she immediately has reflux come back into her throat. She has been unsuccessful at getting her BMI below 35. In addition she has been complaining of significant gas bloat syndrome and really has had no resolution in this. Dr. Jones has done her entire work-up at [facility]. PAST MEDICAL HISTORY Diagnosis Date Adjustment disorder with depressed mood Esophageal reflux Hiatal hernia 2021 Low back pain Migraines PAST SURGICAL HISTORY Procedure Laterality Date PAST SURGICAL HISTORY OF 02/04/2004 REMOVAL VSP L5 TLIF PAST SURGICAL HISTORY OF Bilateral plantar fasciotomy VAGINAL HYSTERECTOMY UTERUS 250 GM/< Hysterectomy, vaginal Current Outpatient Medications Medication Sig Lactobacill 46-B.animal-inulin (PROBIOTIC-10, WITH INULIN,) 10 billion cell -100 mg cap Take 400 mg by mouth once daily. loratadine (CLARITIN) 10 mg tablet Take 10 mg by mouth once daily. esomeprazole mag-glycerin 20 mg kcsp Take 20 mg by mouth twice daily. collagen, hydrolysate, bovine, (COLLAGEN, HYDR, BOVINE,, BULK,) 100 % powd 1 Scoop twice daily. PREDNISONE 20 MG TAB Day 1-2 take 3 tabs in the am, Day 3-4 take 2 tabs in the am, Day 5-6 take 1 tab in the am gabapentin(NEURONTIN 300 MG CAP) Take one(1) capsule four(4) times daily. naproxen(NAPROSYN 500 MG TAB) Take one(1) tab two(2) times daily with food for pain. TRIAMTERENE-HYDROCHLOROTHIAZIDE 37.5 MG-25 MG TAB 1/2 to one tablet daily as neded for edema No current facility-administered medications for this visit. ALLERGIES: Imitrex [Sumatriptan Succinate], Morphine, Penicillins, and Bkwaghj-Ntp-Vlr Reductase Inhibitors PERSONAL HISTORY: Social History Tobacco Use Smoking status: Never Smokeless tobacco: Never Vaping Use Vaping Use: Never used Substance Use Topics Alcohol use: Yes Comment: occassionally Drug use: No FAMILY HISTORY: FAMILY HISTORY Problem Relation Age of Onset Thyroid Mother Heart Mother Psychiatry Mother depression Hypertension Mother Ischemic Heart Disease Mother Lipids Mother Diabetes Mother Headache Mother Heart Father Psychiatry Father depression Hypertension Father Lipids Father Diabetes Father Headache Father Psychiatry Maternal Grandmother depression Psychiatry Daughter depression REVIEW OF SYMPTOMS: The review of systems data was entered by the nurse and reviewed by me There are no exam notes on file for this visit. PHYSICAL EXAMINATION: General: The patient is 52 year old female, well nourished, well hydrated in no acute distress. The patient is oriented to time, place, and person. VITALS: Blood pressure 118/84, pulse 75, temperature 36.8 C (98.3 F), height 165.1 cm (5' 5 ), weight 101.2 kg (223 lb 3.2 oz), SpO2 96 %. Body mass index is 37.14 kg/m . HEENT: Normal cephalic, ataumatic, pupils are equally round, sclera are anicteric, mucous membranes are moist, oropharynx is clear. Neck has no masses, asymmetry or lymphadenopathy. Thyroid is unremarkable. Respiratory: Clear to auscultation and percussion. Normal respiratory excursion and pattern. Cardiac: Examination is regular rate and rhythm. Abdominal exam: Soft, nontender, with no palpable masses. No hepatosplenomegaly. No palpable hernias. Rectal exam: exam deferred Extremities: no clubbing, cyanosis or edema. No adenopathy. Assessment IMPRESSION: Gastroesophageal reflux disease without esophagitis (primary encounter diagnosis) PLAN: I think doing a reflux procedure on her is very risky. I do not think her symptoms are going to be resolved significantly and quite possibly an exacerbation of her gas bloat syndrome with more than likely be significantly worse. Is clear she does not have a close support network at home that would be able to help her with this. And unfortunately I think that she probably is going to have to seek out bariatric surgery as her last resort to have her reflux resolved. Diagnoses: (K21.9) Gastroesophageal reflux disease without esophagitis (primary encounter diagnosis) Return to Clinic: The patient is instructed to follow-up with me as needed. Jesus Velasco III, MD. REVIEW OF SYSTEMS: General: The patient NOTES fatigue, denies weight loss, NOTES weight gain, NOTES feeling hot, and NOTES feelings of cold. Eyes: The patient denies glaucoma, denies eye injury/surgery, wears glasses or contacts. Ear/Nose/Throat: The patient NOTES allergies, denies hayfever, NOTES ear infections, and NOTES bloody noses. Cardiovascular: The patient denies chest pain, denies heart disease, denies high blood pressure,denies cardiac stent, denies prior heart attack, denies irregular heart beat, NOTES high cholesterol, denies poor circulation, denies heart failure, other cardiac issues, notes claudication, denies cold feet, denies peripheral arterial stent. Respiratory: The patient denies tuberculosis, denies pneumonia, denies frequent cough, denies pulmonary embolism, NOTES shortness of breath, and denies coughing up blood. Gastrointestinal: The patient NOTES difficulty swallowing, NOTES acid reflux, denies ulcers, denies vomiting, denies jaundice/hepatitis, denies gallbladder problems, denies black or tarry stools, denies hemorrhoids, denies bleeding from rectum, NOTES diverticulitis, NOTES constipation, NOTES diarrhea, NOTES loss of stool control, and NOTES hernias. Kidney/Bladder: The patient denies kidney stones, denies urine infections, and denies bloody urine. Skin: The patient denies a history of skin cancer, denies bleeding/changing moles, and denies a history of skin rash. Neurologic: The patient denies a history of epilepsy/convulsions, NOTES headaches, NOTES head/spinal injuries, and denies stroke/TIA. Psychiatric: The patient denies psychiatric medications, denies depression, and denies voices, denies substance abuse. Endocrine: The patient NOTES thyroid disorders, denies diabetes, and denies hormonal problems. Hematologic: The patient denies a history of bruising, denies bleeding, and denies anemia, denies blood clots. Infections: The patient denies a history of measles and mumps, denies rheumatic fever, and denies sexually transmitted diseases. Musculoskeletal: The patient NOTES back pain/injury, denies back problems, NOTES sciatica, denies knee/foot trouble, denies arthritis, or denies gout. When was patient's last Mammogram screening? N/A Last Colonoscopy: 2021 Arielle Hoover LPN documented in this encounter [facility] 11-16-2008 History of Past i llness Narrative Problem Noted Date Resolved Date 1.5.1 Chronic migraine [346.71] 11/16/2008 09/08/2022 1.5.2 Status migrainosis [346.73] 11/16/2008 09/08/2022 8.2 Medication overuse headache (MOH) [339.3] 09/08/2022 Pain in limb 08/12/2007 09/08/2022 documented as of this encounter (statuses as of 09/08/2022) [facility] History of Past illness Narrative* Problem Noted Date Resolved Date 1.5.1 Chronic migraine [346.71] 11/16/2008 09/08/2022 1.5.2 Status migrainosis [346.73] 11/16/2008 09/08/2022 8.2 Medication overuse headache (MOH) [339.3] 09/08/2022 Pain in limb 08/12/2007 09/08/2022 documented as of this encounter (statuses as of 09/08/2022) [facility] History of Past illness Narrative* Problem Noted Date Resolved Date 1.5.1 Chronic migraine [346.71] 11/16/2008 09/08/2022 1.5.2 Status migrainosis [346.73] 11/16/2008 09/08/2022 8.2 Medication overuse headache (MOH) [339.3] 09/08/2022 Pain in limb 08/12/2007 09/08/2022 documented as of this encounter (statuses as of 09/23/2022) [facility] History of Past illness Narrative* Problem Noted Date Resolved Date 1.5.1 Chronic migraine [346.71] 11/16/2008 09/08/2022 1.5.2 Status migrainosis [346.73] 11/16/2008 09/08/2022 8.2 Medication overuse headache (MOH) [339.3] 09/08/2022 Pain in limb 08/12/2007 09/08/2022 documented as of this encounter (statuses as of 10/15/2022) [facility] History of Past illness Narrative* Problem Noted Date Resolved Date 1.5.1 Chronic migraine [346.71] 11/16/2008 09/08/2022 1.5.2 Status migrainosis [346.73] 11/16/2008 09/08/2022 8.2 Medication overuse headache (MOH) [339.3] 09/08/2022 Pain in limb 08/12/2007 09/08/2022 documented as of this encounter (statuses as of 10/19/2022) [facility] History of Past illness Narrative* Problem Noted Date Resolved Date 1.5.1 Chronic migraine [346.71] 11/16/2008 09/08/2022 1.5.2 Status migrainosis [346.73] 11/16/2008 09/08/2022 8.2 Medication overuse headache (MOH) [339.3] 09/08/2022 Pain in limb 08/12/2007 09/08/2022 documented as of this encounter (statuses as of 10/27/2022) [facility] History of Past illness Narrative* Problem Noted Date Resolved Date 1.5.1 Chronic migraine [346.71] 11/16/2008 09/08/2022 1.5.2 Status migrainosis [346.73] 11/16/2008 09/08/2022 8.2 Medication overuse headache (MOH) [339.3] 09/08/2022 Pain in limb 08/12/2007 09/08/2022 documented as of this encounter (statuses as of 02/15/2023) [facility] History of Past illness Narrative* Problem Noted Date Resolved Date 1.5.1 Chronic migraine [346.71] 11/16/2008 09/08/2022 1.5.2 Status migrainosis [346.73] 11/16/2008 09/08/2022 8.2 Medication overuse headache (MOH) [339.3] 09/08/2022 Pain in limb 08/12/2007 09/08/2022 documented as of this encounter (statuses as of 02/16/2023) [facility] History of Past illness Narrative* Problem Noted Date Resolved Date 1.5.1 Chronic migraine [346.71] 11/16/2008 09/08/2022 1.5.2 Status migrainosis [346.73] 11/16/2008 09/08/2022 8.2 Medication overuse headache (MOH) [339.3] 09/08/2022 Migraine without aura 10/27/2007 02/16/2023 Pain in limb 08/12/2007 09/08/2022 documented as of this encounter (statuses as of 02/16/2023) [facility] History of Past illness Narrative* Problem Noted Date Diagnosed Date Resolved Date 1.5.1 Chronic migraine [346.71] 11/16/2008 09/08/2022 1.5.2 Status migrainosis [346.73] 11/16/2008 09/08/2022 8.2 Medication overuse headache (MOH) [339.3] 11/17/19 09 09/08/2022 Migraine without aura 10/27/20072022 Pain in limb 08/12/2007 09/08/2022 documented as of this encounter (statuses as of 2023) [facility] History of Past illness Narrative* Problem Noted Date Diagnosed Date Resolved Date 1.5.1 Chronic migraine [346.71] 11/16/2008 09/08/2022 1.5.2 Status migrainosis [346.73] 11/16/2008 09/08/2022 8.2 Medication overuse headache (MOH) [339.3] 11/17/1909/08/2022 Migraine without aura 10/27/20072022 Pain in limb 08/12/2007 09/08/2022 documented as of this encounter (statuses as of 04/16/2023) [facility] History of Past illness Narrative* Problem Noted Date Diagnosed Date Resolved Date 1.5.1 Chronic migraine [346.71] 11/16/2008 09/08/2022 1.5.2 Status migrainosis [346.73] 11/16/2008 09/08/2022 8.2 Medication overuse headache (MOH) [339.3] 11/17/19 09 09/08/2022 Migraine without aura 10/27/20072022 Pain in limb 08/12/2007 09/08/2022 documented as of this encounter (statuses as of 04/22/2023) [facility] History of Past illness Narrative* Problem Noted Date Diagnosed Date Resolved Date 1.5.1 Chronic migraine [346.71] 11/16/2008 09/08/2022 1.5.2 Status migrainosis [346.73] 11/16/2008 09/08/2022 8.2 Medication overuse headache (MOH) [339.3] 11/17/19 09 09/08/2022 Migraine without aura 10/27/20072022 Pain in limb 08/12/2007 09/08/2022 documented as of this encounter (statuses as of 06/05/2023) [facility] History of Past illness Narrative* Problem Noted Date Diagnosed Date Resolved Date 1.5.1 Chronic migraine [346.71] 11/16/2008 09/08/2022 1.5.2 Status migrainosis [346.73] 11/16/2008 09/08/2022 8.2 Medication overuse headache (MOH) [339.3] 11/17/19 09 09/08/2022 Migraine without aura 10/27/20072022 Pain in limb 08/12/2007 09/08/2022 documented as of this encounter (statuses as of 07/03/2023) [facility] History of Past illness Narrative* Problem Noted Date Diagnosed Date Resolved Date 1.5.1 Chronic migraine [346.71] 11/16/2008 09/08/2022 1.5.2 Status migrainosis [346.73] 11/16/2008 09/08/2022 8.2 Medication overuse headache (MOH) [339.3] 11/17/19 09 09/08/2022 Migraine without aura 10/27/20072022 Pain in limb 08/12/2007 09/08/2022 documented as of this encounter (statuses as of 07/03/2023) [facility] History of Past illness Narrative* Problem Noted Date Diagnosed Date Resolved Date 1.5.1 Chronic migraine [346.71] 11/16/2008 09/08/2022 1.5.2 Status migrainosis [346.73] 11/16/2008 09/08/2022 8.2 Medication overuse headache (MOH) [339.3] 11/17/19 09 09/08/2022 Migraine without aura 10/27/20072022 Pain in limb 08/12/2007 09/08/2022 documented as of this encounter (statuses as of 07/06/2023) [facility] History of Past illness Narrative* Problem Noted Date Diagnosed Date Resolved Date 1.5.1 Chronic migraine [346.71] 11/16/2008 09/08/2022 1.5.2 Status migrainosis [346.73] 11/16/2008 09/08/2022 8.2 Medication overuse headache (MOH) [339.3] 11/17/19 09 09/08/2022 Migraine without aura 10/27/20072022 Pain in limb 08/12/2007 09/08/2022 documented as of this encounter (statuses as of 07/08/2023) [facility] History of Past illness Narrative* Problem Noted Date Diagnosed Date Resolved Date 1.5.1 Chronic migraine [346.71] 11/16/2008 09/08/2022 1.5.2 Status migrainosis [346.73] 11/16/2008 09/08/2022 8.2 Medication overuse headache (MOH) [339.3] 11/17/1909/08/2022 Migraine without aura 10/27/20072022 Pain in limb 08/12/2007 09/08/2022 documented as of this encounter (statuses as of 08/06/2023) [facility] History of Past illness Narrative* Problem Noted Date Diagnosed Date Resolved Date 1.5.1 Chronic migraine [346.71] 11/16/2008 09/08/2022 1.5.2 Status migrainosis [346.73] 11/16/2008 09/08/2022 8.2 Medication overuse headache (MOH) [339.3] 11/17/1909/08/2022 Migraine without aura 10/27/20072022 Pain in limb 08/12/2007 09/08/2022 documented as of this encounter (statuses as of 08/11/2023) [facility] History of Past illness Narrative* Problem Noted Date Diagnosed Date Resolved Date 1.5.1 Chronic migraine [346.71] 11/16/2008 09/08/2022 1.5.2 Status migrainosis [346.73] 11/16/2008 09/08/2022 8.2 Medication overuse headache (MOH) [339.3] 11/17/1909/08/2022 Migraine without aura 10/27/20072022 Pain in limb 08/12/2007 09/08/2022 documented as of this encounter (statuses as of 10/05/2023) [facility] History of Past illness Narrative* Problem Noted Date Diagnosed Date Resolved Date 1.5.1 Chronic migraine [346.71] 11/16/2008 09/08/2022 1.5.2 Status migrainosis [346.73] 11/16/2008 09/08/2022 8.2 Medication overuse headache (MOH) [339.3] 11/17/19 09 09/08/2022 Migraine without aura 10/27/20072022 Pain in limb 08/12/2007 09/08/2022 documented as of this encounter (statuses as of 10/06/2023) [facility] note* Diagnosis Gastroesophageal reflux disease without esophagitis- Primary Esophageal reflux documented in this encounter [facility] note* Diagnosis Gastroesophageal reflux disease without esophagitis- Primary Esophageal reflux Hiatal hernia Diaphragmatic hernia without mention of obstruction or gangrene Obesity, Class II, BMI 35-39.9 Obesity, unspecified Hypothyroidism, unspecified type Mild episode of recurrent major depressive disorder (HCC) Seasonal allergic rhinitis, unspecified trigger Encounter for therapeutic drug monitoring Screening for lipid disorders documented in this encounter [facility] note* Diagnosis Wellness examination- Primary Gastroesophageal reflux disease without esophagitis Esophageal reflux Mild episode of recurrent major depressive disorder (HCC) Hyperlipidemia, unspecified hyperlipidemia type Fibromyalgia Mylagia and myositis, unspecified Encounter for screening mammogram for breast cancer Screening for colon cancer Special screening for malignant neoplasms, colon Obesity, Class II, BMI 35-39.9 Obesity, unspecified documented in this encounter [facility] note* Diagnosis Abnormal mammogram- Primary Abnormal mammogram, unspecified documented in this encounter [facility] note* Diagnosis Intractable migraine with aura with status migrainosus- Primary Migraine with aura, with intractable migraine, so stated, with status migrainosus Hyperlipidemia, unspecified hyperlipidemia type Elevated blood pressure reading in office without diagnosis of hypertension [facility] Hospital note* Diagnosis Seasonal allergic rhinitis, unspecified trigger [facility] [place] [facility] Diagnosis Seasonal allergic rhinitis, unspecified [facility] Diagnosis Primary hypertension- Primary Unspecified essential hypertension Fibromyalgia Mylagia and myositis, unspecified Migraine with aura and without status migrainosus, not intractable Migraine with aura, without mention of intractable migraine without mention of status migrainosus [facility] Diagnosis Encounter for screening mammogram for breast cancer [facility] this [facility] [place] [facility]* Diagnosis Abnormal mammogram Abnormal mammogram, unspecified [facility] this [facility] [place] [facility]* Diagnosis Obesity, Class II, BMI 35-39.9 Obesity, unspecified Mild episode of recurrent major depressive disorder (HCC) [facility] this [facility] [place] [facility]* Diagnosis Obesity, Class II, BMI 35-39.9 Obesity, unspecified Mild episode of recurrent major depressive disorder (HCC) [facility] Primary hypertension- Primary Unspecified essential hypertension Screening for colon cancer Special screening for malignant neoplasms, colon Encounter for screening mammogram for breast cancer Migraine with aura and without status migrainosus, not intractable Migraine with aura, without mention of intractable migraine without mention of status migrainosus Hypothyroidism, unspecified type Hyperlipidemia, unspecified hyperlipidemia type Sinus pressure Other diseases of nasal cavity and sinuses Encounter for immunization Need for other specified prophylactic vaccination against single bacterial disease [facility] this [facility] [place] [facility]* Diagnosis Sinus pressure Other diseases of nasal cavity and sinuses [facility] Diagnosis Left sided sciatica- Primary Sciatica [facility]* Diagnosis Primary hypertension- Primary Unspecified essential hypertension Stress and adjustment reaction Other specified adjustment reaction [facility] this [facility] [place] [facility]* Diagnosis Primary hypertension- Primary Unspecified essential hypertension Right arm pain Pain in limb Seasonal allergic rhinitis, unspecified trigger [facility] Diagnosis Migraine with aura and without status migrainosus, not intractable Migraine with aura, without mention of intractable migraine without mention of status migrainosus [facility] Diagnosis Gastroesophageal reflux disease without esophagitis Esophageal reflux [facility] Diagnosis Right arm pain- Primary Pain in limb Primary hypertension Unspecified essential hypertension Left sided sciatica Sciatica documented [facility] this [facility] [place] [facility]* Diagnosis Biceps rupture, proximal, right, initial encounter- Primary Right arm pain Pain in limb Arm paresthesia, right Disturbance of skin sensation [facility] Diagnosis Fibromyalgia Mylagia and myositis, unspecified documented in this encounter [facility] for referral (narrative)* Diagnostic Procedure Only (Routine) - Authorized Specialty Diagnoses / Procedures Referred By Yolanda jackson Referred To Contact [facility] Diagnoses Encounter for screening mammogram for breast cancer Procedures ALAN SCREENING SCREENING MAMMOGRAPHY BI 2-VIEW BREAST INC CAD Thda Vasques APRN.CNP [address] [place] [address] [facility] [address] [place] [address] Referral ID Status Reason Start Date Expiration Date Visits Requested Visits Authorized [id number] Authorized Auto-Generat ed Referral 09/23/2022 10/23/2023 1 1 [facility] for referral (narrative)* Diagnostic Procedure Only (Routine) - Pending Review Specialty Diagnoses / Procedures Referred By Yolanda jackson Referred To Contact [facility] Diagnoses Abnormal mammogram Procedures US BREAST LTD RT US BREAST UNI REAL TIME WITH IMAGE LIMITED Thad Vasques APRN.CNP [address] [place] [address] [facility] [address] [place] [address] Referral ID Status Reason Start Date Expiration Date Visits Requested Visits Authorized [id number] Pending Review Auto-Generat ed Referral 10/19/2022 11/18/2023 1 1 * Diagnostic Procedure Only (Routine) - Pending Review Specialty Diagnoses / Procedures Referred By Yolanda jackson Referred To Contact [facility] Diagnoses Abnormal mammogram Procedures ALAN DIAGNOSTIC RT DIAGNOSTIC MAMMOGRAPHY COMPUTER-AIDED DETCJ UNI Thad Vasques APRN.CNP [address] [place] [address] [facility] [address] [place] [address] Referral ID Status Reason Start Date Expiration Date Visits Requested Visits Authorized [id number] Pending Review Auto-Generat ed Referral 10/19/2022 11/18/2023 1 1 [facility] for referral (narrative)* Diagnostic Procedure Only (Routine) - Closed Specialty Diagnoses / Procedures Referred By Yolanda jackson Referred To Contact [facility] Diagnoses Encounter for screening mammogram for breast cancer Procedures ALAN SCREENING SCREENING MAMMOGRAPHY BI 2-VIEW BREAST INC CAD Thad Vasques APRN.CNP [address] [place] [address] [facility] [address] [place] [phone] Referral ID Status Reason Start Date Expiration Date V isits Requested Visits Authorized [id number] Closed Auto-Generate d Referral 09/23/2022 10/23/2023 1 1 [facility] Outpatient Procedure (Routine) - Pending Review Specialty Diagnoses / Procedures Referred By Yolanda jackson Ref[facility] Diagnoses Primary hypertension Procedures ECG COMPLETE ECG ROUTINE ECG W/LEAST 12 LDS W/I&R Thad Vasques APRN.CNP [address] [place] [address] [facility] [address] [place] [address] Referral ID Status Reason Start Date Expiration Date Visits Requested Visits Authorized [id number] Pending Review Auto-Generat ed Referral 12/24/2023 12/23/2024 1 1 [facility] for referral (narrative)* Outpatient Procedure (Routine) - New Request Specialty Diagnoses / Procedures Referred By Yolanda jackson Referred To Contact [facility] Diagnoses Right arm pain Arm paresthesia, right Procedures EMG(NEURO/NI) NERVE CONDUCTION STUDIES 9-10 STUDIES Jerome Alvares V, DO [address] [place] [address] [facility] [address] [place] [address] Referral ID Status Reason Start Date Expiration Date Visits Requested Visits Authorized [id number] New Request Auto-Generat ed Referral 06/02/2024 06/02/2025 1 1 [facility] for visit Narrative* Diagnostic Procedure Only (Routine) - Closed Specialty Diagnoses / Procedures Referred By Yolanda jackson Referred To Contact [facility] Diagnoses Encounter for screening mammogram for breast cancer Procedures ALAN SCREENING SCREENING MAMMOGRAPHY BI 2-VIEW BREAST INC CAD Thad Vasques, METAL FENCE ERECTOR.INSURANCE RISK MANAGER [address] [place] [address] [facility] [address] [place] [address] Referral ID Status Reason Start Date Expiration Date V isits Requested Visits Authorized [id number] Closed Auto-Generate d Referral 09/23/2022 10/23/2023 1 1 [facility] for visit Narrative* Diagnostic Procedure Only (Routine) - Closed Specialty Diagnoses / Procedures Referred By Yolanda jackson Referred To Contact [facility] Diagnoses Abnormal mammogram Procedures ALAN DIAGNOSTIC RT DIAGNOSTIC MAMMOGRAPHY COMPUTER-AIDED DETCJ UNI Thad Vasques, METAL FENCE ERECTOR.INSURANCE RISK MANAGER [address] [place] [address] [facility] [address] [place] [address] Referral ID Status Reason Start Date Expiration Date V isits Requested Visits Authorized [id number] Closed Auto-Generate d Referral 10/19/2022 11/18/[address] [facility] Summary Purpose Family History No Family History Records FoundNo Family History Records FoundNo Family History Records FoundNo Family History Records FoundNo Family History Records Found Advance Directives No Advanced Directives Records FoundNo Advanced Directives Records FoundNo Advanced Directives Records FoundNo Advanced Directives Records FoundNo Advanced Directives Records Found Medications Administered Section Inactive Administered Medications - up to 3 most recent administrations Medication Order MAR Action Action Date Dose Rate Site keTORolac 60 mg injection (Toradol) 60 mg, INTRAMUSCULAR, ONCE, 1 dose, On Wed02/16/23 at 1200, Ketorolac (Toradol) is indicated for the short-term (up to 5 days) management of moderately severe acute pain. Continuation of ketorolac (Toradol) beyond 5 days increases the risk of developing serious adverse events. Please verify the duration of therapy for ketorolac (Toradol)., If ordered PRN for pain, patient/guardian may elect to receive this medication for higher pain levels INSTEAD of the opioid, if preferred: Yes Given 02/16/2023 11:58 AM EDT 60 mg Buttocks, Left Reason for Referral Specialty Diagnoses / Procedures Referred By Contac t Referred To Contact General Surgery Diagnoses Screening for colon cancer Procedures CONSULT TO GENERAL SURGERY OFFICE/OUTPATIENT [facility] 60-74 MINUTES Kerri Marvin, METAL FENCE ERECTOR.[facility] [address] [place] [address] Referral ID Status Reason Start Date Expiration Date Visits Requested Visits Authorized [id number] Authorized PCP Requested Referral 08/05/2023 08/04/2024 1 1 Specialty Diagnoses / Procedures Referred By Contac t Referred To Contact [facility] Diagnoses Encounter for screening mammogram for breast cancer Procedures ALAN SCREENING SCREENING MAMMOGRAPHY BI 2-VIEW BREAST INC CAD Kerri Marvin, METAL FENCE ERECTOR.[employer]ARE ASSOCIATE [address] [place] [address] [facility] [address] [place] [address] Referral ID Status Reason Start Date Expiration Date Visits Requested Visits Authorized [id number] Pending Review Auto-Generat ed Referral 08/05/2023 09/03/2024 1 1 Specialty Diagnoses / Procedures Referred By Contac t Referred To Contact Orthopedics Diagnoses Right arm pain Procedures CONSULT TO ORTHOPAEDICS OFFICE/OUTPATIENT [facility] 60 MINUTES Thad Vasques METAL FENCE ERECTOR.[facility] [address] [place] [address] Referral ID Status Reason Start Date Expiration Date Visits Requested Visits Authorized [id number] Authorized PCP Requested Referral 01/14/2024 01/13/2025 1 1 Additional Source Comments INFORMATION SOURCE (unrecogn ized section and content) DATE CREATED AUTHOR 02/23/2018 [facility] DATE CREATED AUTHOR AUTHOR'S ORGANIZ ATION 05/23/2021 [facility] DATE CREATED AUTHOR AUTHOR'S ORGANIZ ATION 10/07/2023 [facility] DATE CREATED AUTHOR AUTHOR'S ORGANIZ ATION 11/08/2023 [facility] ([place]) DATE CREATED AUTHOR AUTHOR'S ORGANIZ ATION 06/04/2024 [facility] Source Comments (unrecognize d section and content) In the event this informatio n is protected by the Federal Confidentiality of Alcohol and Drug Abuse Patient Records regulations: The Federal rules restrict any use of the information to criminally investigate or prosecute any alcohol or drug abuse patient.[facility] event this information is protected by the Federal Confidentiality of Alcohol and Drug Abuse Patient Records regulations: The Federal rules restrict any use of the information to criminally investigate or prosecute any alcohol or drug abuse patient.[facility] the event this information is protected by the Federal Confidentiality of Alcohol and Drug Abuse Patient Records regulations: The Federal rules restrict any use of the information to criminally investigate or prosecute any alcohol or drug abuse patient.[facility] the event this information is protected by the Federal Confidentiality of Alcohol and Drug Abuse Patient Records regulations: The Federal rules restrict any use of the information to criminally investigate or prosecute any alcohol or drug abuse patient.[facility] the event this information is protected by the Federal Confidentiality of Alcohol and Drug Abuse Patient Records regulations: The Federal rules restrict any use of the information to criminally investigate or prosecute any alcohol or drug abuse patient.[facility] the event this information is protected by the Federal Confidentiality of Alcohol and Drug Abuse Patient Records regulations: The Federal rules restrict any use of the information to criminally investigate or prosecute any alcohol or drug abuse patient.[facility] the event this information is protected by the Federal Confidentiality of Alcohol and Drug Abuse Patient Records regulations: The Federal rules restrict any use of the information to criminally investigate or prosecute any alcohol or drug abuse patient.[facility] the event this information is protected by the Federal Confidentiality of Alcohol and Drug Abuse Patient Records regulations: The Federal rules restrict any use of the information to criminally investigate or prosecute any alcohol or drug abuse patient.[facility] the event this information is protected by the Federal Confidentiality of Alcohol and Drug Abuse Patient Records regulations: The Federal rules restrict any use of the information to criminally investigate or prosecute any alcohol or drug abuse patient.[facility] the event this information is protected by the Federal Confidentiality of Alcohol and Drug Abuse Patient Records regulations: The Federal rules restrict any use of the information to criminally investigate or prosecute any alcohol or drug abuse patient.[facility] the event this information is protected by the Federal Confidentiality of Alcohol and Drug Abuse Patient Records regulations: The Federal rules restrict any use of the information to criminally investigate or prosecute any alcohol or drug abuse patient.[facility] the event this information is protected by the Federal Confidentiality of Alcohol and Drug Abuse Patient Records regulations: The Federal rules restrict any use of the information to criminally investigate or prosecute any alcohol or drug abuse patient.[facility] the event this information is protected by the Federal Confidentiality of Alcohol and Drug Abuse Patient Records regulations: The Federal rules restrict any use of the information to criminally investigate or prosecute any alcohol or drug abuse patient.[facility] the event this information is protected by the Federal Confidentiality of Alcohol and Drug Abuse Patient Records regulations: The Federal rules restrict any use of the information to criminally investigate or prosecute any alcohol or drug abuse patient.[facility] the event this information is protected by the Federal Confidentiality of Alcohol and Drug Abuse Patient Records regulations: The Federal rules restrict any use of the information to criminally investigate or prosecute any alcohol or drug abuse patient.[facility] the event this information is protected by the Federal Confidentiality of Alcohol and Drug Abuse Patient Records regulations: The Federal rules restrict any use of the information to criminally investigate or prosecute any alcohol or drug abuse patient.[facility] the event this information is protected by the Federal Confidentiality of Alcohol and Drug Abuse Patient Records regulations: The Federal rules restrict any use of the information to criminally investigate or prosecute any alcohol or drug abuse patient.[facility] the event this information is protected by the Federal Confidentiality of Alcohol and Drug Abuse Patient Records regulations: The Federal rules restrict any use of the information to criminally investigate or prosecute any alcohol or drug abuse patient.[facility] the event this information is protected by the Federal Confidentiality of Alcohol and Drug Abuse Patient Records regulations: The Federal rules restrict any use of the information to criminally investigate or prosecute any alcohol or drug abuse patient.[facility] the event this information is protected by the Federal Confidentiality of Alcohol and Drug Abuse Patient Records regulations: The Federal rules restrict any use of the information to criminally investigate or prosecute any alcohol or drug abuse patient.[facility] the event this information is protected by the Federal Confidentiality of Alcohol and Drug Abuse Patient Records regulations: The Federal rules restrict any use of the information to criminally investigate or prosecute any alcohol or drug abuse patient.[facility] the event this information is protected by the Federal Confidentiality of Alcohol and Drug Abuse Patient Records regulations: The Federal rules restrict any use of the information to criminally investigate or prosecute any alcohol or drug abuse patient.[facility] the event this information is protected by the Federal Confidentiality of Alcohol and Drug Abuse Patient Records regulations: The Federal rules restrict any use of the information to criminally investigate or prosecute any alcohol or drug abuse patient.[facility] the event this information is protected by the Federal Confidentiality of Alcohol and Drug Abuse Patient Records regulations: The Federal rules restrict any use of the information to criminally investigate or prosecute any alcohol or drug abuse patient.[facility] the event this information is protected by the Federal Confidentiality of Alcohol and Drug Abuse Patient Records regulations: The Federal rules restrict any use of the information to criminally investigate or prosecute any alcohol or drug abuse patient.[facility] the event this information is protected by the Federal Confidentiality of Alcohol and Drug Abuse Patient Records regulations: The Federal rules restrict any use of the information to criminally investigate or prosecute any alcohol or drug abuse patient.[facility] the event this information is protected by the Federal Confidentiality of Alcohol and Drug Abuse Patient Records regulations: The Federal rules restrict any use of the information to criminally investigate or prosecute any alcohol or drug abuse patient.[facility] the event this information is protected by the Federal Confidentiality of Alcohol and Drug Abuse Patient Records regulations: The Federal rules restrict any use of the information to criminally investigate or prosecute any alcohol or drug abuse patient.[facility] the event this information is protected by the Federal Confidentiality of Alcohol and Drug Abuse Patient Records regulations: The Federal rules restrict any use of the information to criminally investigate or prosecute any alcohol or drug abuse patient.[facility] the event this information is protected by the Federal Confidentiality of Alcohol and Drug Abuse Patient Records regulations: The Federal rules restrict any use of the information to criminally investigate or prosecute any alcohol or drug abuse patient.[facility] the event this information is protected by the Federal Confidentiality of Alcohol and Drug Abuse Patient Records regulations: The Federal rules restrict any use of the information to criminally investigate or prosecute any alcohol or drug abuse patient.[facility] Reason for Visit (unrecogniz ed section and content) Reason Comments Consult Hiatal hernia Reason Comments Abdominal Pain Reason Comments Physical Reason Comments Refill Request Reason Onset Date Comments Refill Request 02/15/2023 Reason Onset Date Comments Refill Request 02/13/2023 Reason Comments Headache for about 1 month po ints to area above eyes and questions if related to allergies. Refill Request Specialty Diagnoses / Procedures Referred By Yolanda jackson Referred To Contact [facility] Diagnoses Severe headaches Procedures Severe headaches [facility] [address] [place] [address] Referral ID Status Reason Start Date Expiration Date Visits Requested Visits Authorized [id number] Outside PCP OON/Self Pay Override 02/16/2023 08/15/2023 1 1 Reason Onset Date Comments Refill Request 03/17/2023 Reason Comments Blood Pressure Patient states that she stopped taking the HCTZ and topamax due to GI upset.Did mention that she started taking cymbalta and has really helped Reason Comments Insurance Authorization Reason Onset Date Comments Refill Request 07/07/2023 Reason Comments Follow Up Reason Onset Date Comments Refill Request 08/10/2023 Reason Comments Musculoskeletal Problem Bilat legs x 2 d ays, L is worse, pain shoots up legs Reason Onset Date Comments Refill Request 12/22/2023 Reason Comments Blood Pressure has been elevated 17 0/100 on average Reason Comments Recheck Shoulder Injury right shoulder and u pper arm Rash requesting injection to treat poison on upper left thing and back of right leg Reason Comments Appointment Reason Onset Date Comments Refill Request 03/15/2024 Reason Comments Recheck Reason Comments right biceps pain REF: [place] Specialty Diagnoses / Procedures Referred By Yolanda jackson Referred To Contact Orthopedics Diagnoses Right arm pain Procedures CONSULT TO ORTHOPAEDICS OFFICE/OUTPATIENT [facility] 60 MINUTES Thad Vasques APRN.INSURANCE RISK MANAGER [address] [place] [address] Referral ID Status Reason Start Date Expiration Date V isits Requested Visits Authorized [id number] Closed PCP Requested Referral 01/14/2024 01/13/2025 1 1 Reason Onset Date Comments Refill Request 06/05/2024 Care Teams (unrecognized sec tion and content) Check And Transfer Beader Relationship Specialty Start Date End Date Thad Vasques, METAL FENCE ERECTOR.INSURANCE RISK MANAGER [address] [place] [address] PCP - General Internal Medicine 09/08/22 Check And Transfer Beader Relationship Specialty Start Date End Date Thad Vasques, METAL FENCE ERECTOR.INSURANCE RISK MANAGER [address] [place] [address] PCP - General Internal Medicine 09/08/22 Check And Transfer Beader Relationship Specialty Start Date End Date Thad Vasques, METAL FENCE ERECTOR.INSURANCE RISK MANAGER [address] [place] [address] PCP - General Internal Medicine 09/08/22 Check And Transfer Beader Relationship Specialty Start Date End Date Thad Vasques, METAL FENCE ERECTOR.INSURANCE RISK MANAGER [address] [place] [address] PCP - General Internal Medicine 09/08/22 Check And Transfer Beader Relationship Specialty Start Date End Date Thad Vasques, METAL FENCE ERECTOR.INSURANCE RISK MANAGER [address] [place] [address] PCP - General Internal Medicine 09/08/22 Check And Transfer Beader Relationship Specialty Start Date End Date Perez Rooney MD [address] [place] [address] [place] [address] PCP - General Internal Medicine 11/16/22 Check And Transfer Beader Relationship Specialty Start Date End Date Perez Rooney MD [address] [place] [address] [place] [address] PCP - General Internal Medicine 11/16/22 Check And Transfer Beader Relationship Specialty Start Date End Date Perez Rooney MD [address] [place] [address] PCP - General Internal Medicine 11/16/22 Check And Transfer Beader Relationship Specialty Start Date End Date Perez Rooney MD [address] [place] [address] PCP - General Internal Medicine 11/16/22 Check And Transfer Beader Relationship Specialty Start Date End Date Perez Rooney MD [address] [place] [address] PCP - General Internal Medicine 11/16/22 Check And Transfer Beader Relationship Specialty Start Date End Date Perez Rooney MD [address] [place] [address] PCP - General Internal Medicine 11/16/22 Check And Transfer Beader Relationship Specialty Start Date End Date Perez Rooney MD [address] [place] [address] PCP - General Internal Medicine 11/16/22 Check And Transfer Beader Relationship Specialty Start Date End Date Perez Rooney MD [address] [place] [address] PCP - General Internal Medicine 11/16/22 Check And Transfer Beader Relationship Specialty Start Date End Date Thad Vasques APRN.INSURANCE RISK MANAGER [address] [place] [id number] PCP - General Internal Medicine 09/08/22 11/15/22 Check And Transfer Beader Relationship Specialty Start Date End Date Perez Rooney MD [address] [place] [address] PCP - General Internal Medicine 11/16/22 Check And Transfer Beader Relationship Specialty Start Date End Date Perez Rooney MD [address] [place] [address] PCP - General Internal Medicine 11/16/22 Check And Transfer Beader Relationship Specialty Start Date End Date Perez Rooney MD [address] [place] [address] PCP - General Internal Medicine 11/16/22 Check And Transfer Beader Relationship Specialty Start Date End Date Perez Rooney MD [address] [place] [address] PCP - General Internal Medicine 11/16/22 Check And Transfer Beader Relationship Specialty Start Date End Date Perez Rooney MD [address] [place] [address] PCP - General Internal Medicine 11/16/22 Check And Transfer Beader Relationship Specialty Start Date End Date Perez Rooney MD [address] [place] [address] PCP - General Internal Medicine 11/16/22 Check And Transfer Beader Relationship Specialty Start Date End Date Perez Rooney MD [address] [place] [address] PCP - General Internal Medicine 11/16/22 Check And Transfer Beader Relationship Specialty Start Date End Date Perez Rooney MD [address] [place] [address] PCP - General Internal Medicine 11/16/22 Check And Transfer Beader Relationship Specialty Start Date End Date Perez Rooney MD [address] [place] [address] PCP - General Internal Medicine 11/16/22 Check And Transfer Beader Relationship Specialty Start Date End Date Perez Rooney MD [address] [facility] [place] [address] PCP - General Internal Medicine 11/16/22 Check And Transfer Beader Relationship Specialty Start Date End Date Perez Rooney MD [address] [facility] [address] PCP - General Internal Medicine 11/16/22 Check And Transfer Beader Relationship Specialty Start Date End Date Perez Rooney MD [address] [facility] [place] [address] PCP - General Internal Medicine 11/16/22 Check And Transfer Beader Relationship Specialty Start Date End Date Perez Rooney MD [address] [facility] [place] [address] PCP - General Internal Medicine 11/16/22 Check And Transfer Beader Relationship Specialty Start Date End Date Perez Rooney MD [address] [facility] [address] PCP - General Internal Medicine 11/16/22 FOR RECORDS PERTAINING TO PATIENTS WHO ARE OR HAVE BEEN ENROLLED IN A CHEMICAL DEPENDENCY/SUBSTANCEABUSE PROGRAM, SOME INFORMATION MAY BE OMITTED. This clinical summary was aggregated from multiple sources. Caution should be exercised in using it in the provision of clinical care. This summary normalizes information from multiple sources, and as a consequence, information in this document may materially change the coding, format and clinical context of patient data. In addition, data may be omitted in some cases. CLINICAL DECISIONS SHOULD BE BASED ON THE PRIMARY CLINICAL RECORDS. [facility] [email or web address] [facility]. provides no warranty or guarantee of the accuracy or completeness of information in this document.
--- NOTE | 2024-06-20 11:07 | NEURO ---
NCS and/or EMG Patient Report Ordering Doctor: Jerome Alvares DATE OF SERVICE: 06/20/24 Clinical Summary: 54 year old female patient with symptoms of pain and numbness in the right upper extremity. History of right rotator cuff injury and torn biceps. Nerve Conduction Studies Summary: Nerve conductions were performed in the right upper extremity. The right median-D2 SNAP distal latency was prolonged. The right ulnar-D5 SNAP was absent. The right ulnar lopez response amplitude was reduced. Needle Examination Summary: Needle examination of select muscles of the right upper extremity was normal. Impression: There is electrodiagnostic evidence of the following - 1) Mild, right median mononeuropathy at the wrist (carpal tunnel syndrome), with sensory fiber demyelination 2) Non-localized, right ulnar mononeuropathy, with involvement of only sensory nerve fibers There is no electrodiagnostic evidence of a right cervical radiculopathy. Multi Select Codes Neurology Neurology Interp Codes: 17872-24 Musc test done w/n test comp (interp) (1) and 05544-27 Nrv cndj test 7-8 studies (interp)
== END | disposition home or self-care (01) ==
LOC: PSN 09:45
PROVIDERS: PCP Internal Medicine; Referring Provider Family Medicine; Visit Provider Family Medicine
DX: M79.601 Pain in right arm (principal); R20.2 Paresthesia of skin
CPT/HCPCS: 95886; 95910